=== PATIENT | female | born 1940 | race Caucasian/White ===

== ENCOUNTER 2021-06-18 09:48 | Inpatient (IN) | payer MEDICARE ==
[2021-06-18 10:10] LABS: ABG Oxygen Saturation 99.7 % (94-97); ABG PCO2 61 mmHg (35-45); ABG PH 7.55 (7.35-7.45); ABG PO2 106 mmHg (83-108); ABG TCO2 56 mmol/L (19-24); Allen Test Performed? Yes
[2021-06-18] MEDS ORDERED: NALOXONE 0.4 MG/ML 1 ML VIAL IV PRN (10:14)
[2021-06-18] MEDS ORDERED: MORPHINE SULFATE 2 MG/ML SYRINGE IV PRN (10:14)
[2021-06-18] MEDS ORDERED: IPRATROPIUM-ALBUTEROL 3 ML NEB INHALATION PRN (10:14)
[2021-06-18] MEDS ORDERED: ACETAMINOPHEN SUPPOSITORY 650 MG SUPP RECTAL PRN (10:14)
--- NOTE | 2021-06-18 10:22 | ED ---
General Adult HPI - General Chief complaint: Shortness of Breath Stated complaint: Intubation Time Seen by Provider: 06/18/21 09:49 Source: EMS, RN notes reviewed, old records reviewed Mode of arrival: EMS Limitations: altered mental status, physical limitation - History of Present Illness Initial comments: 81-year-old female who had presented to an outside emergency department with chief complaint of dyspnea, hypoxia. History of COPD. By review the medical record it does appear that this patient was trialed on supplemental oxygen, BiPAP and ultimately failed these measures and required mechanical ventilation. She had been transferred to this institution for pulmonology consult and ICU management. Review of Systems ROS Statement: Those systems with pertinent positive or pertinent negative responses have been documented in the HPI. ROS Other: All systems not noted in ROS Statement are negative. Past Medical History Past Medical History: COPD, Diabetes Mellitus, Hyperlipidemia, Hypertension, Sleep Apnea/CPAP/BIPAP, Thyroid Disorder General Exam General appearance: in no apparent distress, obtunded Head exam: Present: atraumatic, normocephalic Eye exam: Present: PERRL Neck exam: Present: normal inspection. Absent: tenderness, meningismus Respiratory exam: Present: wheezes, decreased breath sounds, other (Air entry bilaterally with mechanical ventilation.) Cardiovascular Exam: Present: regular rate, normal rhythm GI/Abdominal exam: Present: soft. Absent: distended, tenderness, guarding Extremities exam: Present: normal capillary refill, pedal edema Skin exam: Present: warm, dry, intact Course Vital Signs 06/18/21 09:55 Temperature 99.1 F Pulse Rate 62 Respiratory 16 Rate Blood Pressure 132/62 O2 Sat by Pulse 100 Oximetry Medical Decision Making - Medical Decision Making 81-year-old female who had been transferred with respiratory failure requiring mechanical ventilation which was indicated is secondary to COPD exacerbation with hypoxia. Workup had revealed a normal white blood cell count, hemoglobin of 11. She had normal kidney function at 1.1. Her d-dimer and troponin were negative. Covid testing was negative. Chest x-ray, and I'll repeat laboratory studies have been ordered. I did discuss case with Dr. Almanzar who will admit. Dr. Palmer will accept the patient to the ICU. Critical Care Time Critical Care Time: Yes Total Critical Care Time: 35 Disposition Clinical Impression: Acute exacerbation of chronic obstructive pulmonary disease, Dependent on ventilator Disposition: ADMITTED IP TO THIS HOSP Condition: Serious Is patient prescribed a controlled substance at d/c from ED?: No Referrals: Yanely Andrade PAC [Primary Care Provider] - 1-2 days Decision to Admit Reason: Admit from EC Decision Date: 06/18/21 Decision Time: 10:21
[2021-06-18 10:31] LABS: ABG HCO3 54 mmol/L (21-25)
--- NOTE | 2021-06-18 10:37 | XR ---
EXAMINATION TYPE: XR chest 1V portable DATE OF EXAM: 06/18/2021 COMPARISON: NONE HISTORY: 81 years Female. STUDY INDICATION GIVEN: vented . TECHNIQUE: AP chest radiograph IMPRESSION: Tip of endotracheal tube in the midthoracic trachea. Enteric tube courses into the stomach. Mild bilateral right greater than left patchy opacities may be on the basis of multifocal pneumonia. No pneumothorax or large effusion. Mild cardiomegaly. Generalized osteopenia noted.No acute osseous abnormality Radiopaque density seen over the upper abdomen to the left of the external to the patient.
[2021-06-18 10:43] LABS: Basophils % (A) 0 %; Eosinophils % (A) 0 %; HCT 33.6 % (34.0-46.0); HGB 10.3 gm/dL (11.4-16.0); Hypochromasia Slight; Lymphocytes # (A) 0.8 k/uL (1.0-4.8); Lymphocytes % (A) 8 %; MCH 30.8 pg (25.0-35.0); MCHC 30.7 g/dL (31.0-37.0); MCV 100.1 fL (80.0-100.0); Mean Platelet Volume 7.3; Monocytes # (A) 0.8 k/uL (0-1.0); Monocytes % (A) 8 %; Neutrophils # (A) 8.1 k/uL (1.3-7.7); Neutrophils % (A) 83 %; Platelet Count 227 k/uL (150-450); RBC 3.35 m/uL (3.80-5.40); RDW 13.8 % (11.5-15.5); WBC 9.8 k/uL (3.8-10.6)
[2021-06-18 10:56] LABS: Partial Thromboplastin Time 26.9 sec (22.0-30.0); Prothrombin Time 10.4 sec (9.0-12.0)
[2021-06-18 10:59] LABS: Albumin 2.9 g/dL (3.5-5.0); Calcium 7.8 mg/dL (8.4-10.2); Magnesium 1.9 mg/dL (1.6-2.3); Potassium 4.4 mmol/L (3.5-5.1); Total Bilirubin 0.3 mg/dL (0.2-1.3); Total Protein 5.6 g/dL (6.3-8.2)
[2021-06-18] MEDS: SODIUM CHLORIDE 0.9% 1,000 ML IV SCH ×2 (11:40→18:40)
[2021-06-18] MEDS: IPRATROPIUM-ALBUTEROL 3 ML NEB INHALATION SCH ×3 (11:46→20:43)
--- NOTE | 2021-06-18 14:59 | P.CNPUL ---
History of Present Illness Consult date: 06/18/21 Requesting physician: Vilma Cornejo Reason for consult: COPD, hypoxemia Chief complaint: Altered mental status History of present illness: This is an 81-year-old female with history of multiple medical problems including COPD, obstructive sleep apnea syndrome, supposed to be on CPAP, however the patient is not compliant with her CPAP. [place] [facility] [place], patient lives alone, and her family members from another town came to visit, she was found to be sleeping most of the time, unable to arouse most of the time. Patient was at times quite somnolent. EMS was called, and she was taken by EMS to a nearby ER emergency room, and the patient was found to have hypoxic and hypercapnic respiratory failure. Patient was intubated in the ER, and arrangements were made for the patient to be transferred to [facility] last night. She arrived this morning, and I was asked to see her on consultation because she is intubated and mechanically ventilated. Couldn't get much information from the patient or from the chart, but obviously the patient has clearly obesity/hypoventilation syndrome, possible COPD, and obstructive sleep apnea syndrome, and presented with hypoxic and hypercapnic respiratory failure. She is supposedly on oxygen at home prescribed to her by a director of career resources not seen by any pulmonary physician in the past. And according to the family she is not compliant with her CPAP. Presently the patient is intubated and mechanically ventilated, she is on assist control rate of 12, tidal volume 450, FiO2 down to 50% and PEEP of 5. Earlier ABG on different setting showed a pO2 of 106 pCO2 61 pH of 7.55, based on the gases, I believe the patient has chronic hypercapnia probably her baseline pCO2 is in the 70s. Hence her assist control rate was cut down from 18 down to 12, and a repeat ABG is pending. In the meantime the patient is on propofol at 40 mcg/kg/m, she is sedated, and on arousable. Review of Systems ROS unobtainable: due to endotracheal tube Past Medical History Past Medical History: COPD, Diabetes Mellitus, Hyperlipidemia, Hypertension, Sleep Apnea/CPAP/BIPAP, Thyroid Disorder History of Any Multi-Drug Resistant Organisms: None Reported Past Anesthesia/Blood Transfusion Reactions: No Reported Reaction Smoking Status: Former smoker Medications and Allergies Home Medications Medication Instructions Recorded Confirmed Type Furosemide [Lasix] 20 mg PO DAILY 06/18/21 06/18/21 History Levothyroxine Sodium [Synthroid] 150 mcg PO DAILY 06/18/21 06/18/21 History Potassium Chloride [Potassium 10 meq PO DAILY 06/18/21 06/18/21 History Chloride ER] Simvastatin [Zocor] 40 mg PO DAILY 06/18/21 06/18/21 History amLODIPine [Norvasc] 2.5 mg PO DAILY 06/18/21 06/18/21 History cloNIDine HCL [Catapres] 0.1 mg PO BID 06/18/21 06/18/21 History lisinopriL 40 mg PO DAILY 06/18/21 06/18/21 History Allergies Allergy/AdvReac Type Severity Reaction Status Date / Time No Known Allergies Allergy Unverified 06/18/21 10:51 Physical Exam Vitals: Vital Signs Temp Pulse Resp BP Pulse Ox 06/18/21 14:00 56 L 12 121/52 98 06/18/21 13:30 58 L 12 114/50 98 06/18/21 13:00 61 18 133/53 99 06/18/21 12:50 62 18 99 06/18/21 12:40 63 18 99 06/18/21 12:30 100 F H 61 18 130/71 100 06/18/21 12:15 17 06/18/21 11:57 63 06/18/21 11:50 64 06/18/21 11:40 18 111/58 99 06/18/21 11:30 63 18 138/60 100 06/18/21 11:20 64 18 138/60 100 06/18/21 11:10 83 17 132/71 99 06/18/21 11:05 100 F H 06/18/21 11:00 64 18 136/64 100 06/18/21 10:40 62 18 131/58 100 06/18/21 10:20 68 18 132/61 98 06/18/21 10:16 17 06/18/21 10:14 132/62 100 06/18/21 09:55 99.1 F 62 16 132/62 100 Intake and Output 06/17/21 06/18/21 06/18/21 22:59 06:59 14:59 Intake Total 333.684 Output Total 225 Balance 108.684 Intake: IV 130 Sodium Chloride 0.9% 1, 130 000 ml @ 130 mls/hr IV . Q7H42M [facility] Rx#:[id number] Intake, IV Titration 203.684 Amount Sodium Chloride 0.9% 1, 130 000 ml @ 130 mls/hr IV . Q7H42M [facility] Rx#:[id number] propofoL 1,000 mg In 73.684 Empty Bag 1 bag @ Titrate IV .Q0M [facility] Rx#: [id number] Output: Urine 225 Other: Voiding Method Indwelling Catheter Weight 109 kg ABP, PAP, CO, CI - Last 8 Hours Arterial Blood Pressure 131/43 Arterial Blood Pressure 152/51 General appearance: Revealed an 81-year-old female, obese, intubated and mechanically ventilated. Head exam: Atraumatic, normocephalic. Eye exam: PERRLA, EOMI, anicteric, no neck masses no JVD. Neck exam: Short obese neck, no neck masses no JVD no stridor. Moist mucous membranes. Respiratory exam: Symmetrical chest expansion diminished breath sound bilaterally no crackles or rhonchi or wheezes. Cardiovascular Exam: Normal S1 and S2, no S3 gallop. GI/Abdominal exam: Obese soft nontender no megaly no rebound no guarding. Extremities exam: No clubbing, trace of bipedal edema, no cyanosis. Skin exam: No rashes. Neurologic: Could not assess. Psychiatric: Could not assess Results - Laboratory Findings CBC and BMP: 06/18/21 10:31 06/18/21 10:31 ABG ABG pH 7.55 (7.35-7.45) H 06/18/21 10:07 ABG pCO2 61 mmHg (35-45) H 06/18/21 10:07 ABG pO2 106 mmHg (83-108) 06/18/21 10:07 ABG O2 Saturation 99.7 % (94-97) H 06/18/21 10:07 PT/INR, D-dimer PT 10.4 sec (9.0-12.0) 06/18/21 10:31 INR 1.0 (<1.2) 06/18/21 10:31 Abnormal lab findings: Abnormal Labs 06/18/21 06/18/21 06/18/21 10:07 10:31 10:31 RBC 3.35 L Hgb 10.3 L Hct 33.6 L MCV 100.1 H MCHC 30.7 L Neutrophils # 8.1 H Lymphocytes # 0.8 L ABG pH 7.55 H ABG pCO2 61 H ABG HCO3 54 H* ABG Total CO2 56 H ABG O2 Saturation 99.7 H Chloride 91 L Carbon Dioxide 42 H* BUN 19 H Glucose 113 H Plasma Lactic Acid Guido Calcium 7.8 L Total Protein 5.6 L Albumin 2.9 L 06/18/21 10:31 RBC Hgb Hct MCV MCHC Neutrophils # Lymphocytes # ABG pH ABG pCO2 ABG HCO3 ABG Total CO2 ABG O2 Saturation Chloride Carbon Dioxide BUN Glucose Plasma Lactic Acid Guido 2.2 H* Calcium Total Protein Albumin - Diagnostic Findings Chest x-ray: image reviewed (Adequate placement of the endotracheal tube a dequate placement of the orogastric tube minimal bilateral patchy opacities right greater than the left. Consistent with possible pneumonia) Assessment and Plan Assessment: Impression: Acute on chronic hypoxic and hypercapnic respiratory failure secondary to obesity/hypoventilation syndrome, obstructive sleep apnea syndrome, and suspect some component of COPD. Obstructive sleep apnea syndrome, noncompliant with CPAP. Chronic cor pulmonale and pulmonary hypertension secondary to above. Acute exacerbation of COPD is suspected. Bilateral pneumonia most likely aspiration in nature unless for otherwise. Type 2 diabetes. Dyslipidemia. Benign essential hypertension. History of hypothyroidism. Recommendation: Continue ventilatory support. Started nutritional support via orogastric tube. Hemodynamic support if needed. Antibiotics for presumptive aspiration pneumonia/Zosyn. GI and DVT prophylaxis. Bronchodilators for underlying COPD. Prognosis is definitely guarded. Discussed and reviewed with the family/daughter and son have status, and updated on her condition. Left radial arterial line was placed. Patient had a right femoral triple-lumen catheter placed by ER. Will keep in place for now. We'll continue to follow. Patient is critically ill. Time with Patient: Greater than 30
[2021-06-18] MEDS: PIPERACILLIN-TAZOBACTAM 3.375 GM in SODIUM CHLORIDE 0.9% 100 ML IVPB SCH ×2 (15:19→23:31)
[2021-06-18] MEDS: ENOXAPARIN 40 MG/0.4 ML SYRINGE SQ SCH (15:19)
[2021-06-18] MEDS ORDERED: methylPREDNISolone SOD SUCCI 125 MG/2 ML VIAL IV SCH (16:00)
[2021-06-18 16:12] LABS: ABG Base Excess 28.5 mmol/L; ABG Oxygen Saturation 99.6 % (94-97); ABG PCO2 63 mmHg (35-45); ABG PH 7.52 (7.35-7.45); ABG PO2 109 mmHg (83-108); ABG TCO2 53 mmol/L (19-24); Allen Test Performed? Yes
[2021-06-18 16:15] LABS: ABG HCO3 51 mmol/L (21-25)
[2021-06-18 17:24] LABS: Appearance,Urine Clear (Clear); Bilirubin,Urine Negative (Negative); Blood,Urine Negative (Negative); Color,Urine Yellow; Glucose,Urine (UA) Negative (Negative); Hyaline Casts,Urine 1 /lpf (0-2); Ketones,Urine Negative (Negative); Leukocyte Esterase,Urine Negative (Negative); Mucus,Urine Rare /hpf; Nitrite,Urine Negative (Negative); PH, Urine 8.5 (5.0-8.0); Protein,Urine 1+ (Negative); RBC,Urine 2 /hpf (0-5); Specific Gravity,Urine 1.018 (1.001-1.035); Urobilinogen,Urine <2.0 mg/dL (<2.0); WBC,Urine 1 /hpf (0-5)
[2021-06-18] MEDS ORDERED: INSULIN ASPART (NovoLOG) 100 UNIT/ML VIAL SQ SCH (17:30)
--- NOTE | 2021-06-18 17:44 | HP ---
HISTORY AND PHYSICAL CHIEF COMPLAINT: Shortness of breath. HISTORY OF PRESENT ILLNESS: This 81-year-old woman with a past medical history of COPD, diabetes mellitus, hyperlipidemia, hypertension, sleep apnea, being followed by Dr. Yanely Andrade in the outpatient setting, presented to [facility] with complaints of shortness of breath. Patient also had COPD, acute exacerbation. The patient was symptomatically with oxygen and BiPAP and ultimately the patient required mechanical ventilation. Patient was transferred for pulmonary consultation and ICU management. Currently the patient is unable to tolerate mechanically ventilated and sedated. Dr. Palmer is following the patient closely. Patient unable to give a coherent history at this time. The patient apparently had bilateral pneumonia, also. The admission lactic acid was 2.2, CO2 is 42. PAST MEDICAL HISTORY: History of COPD, history of diabetes mellitus, type 2, hypertension, hyperlipidemia, sleep apnea. HOME MEDICATIONS: Reviewed. They include clonidine, Norvasc, Zocor, Lasix, lisinopril, Synthroid. Doses are reviewed. ALLERGIES: NONE. FAMILY HISTORY: No history of heart disease or strokes in the family. SOCIAL HISTORY: History of smoking previously. REVIEW OF SYSTEMS: Review of systems could not be taken.. PHYSICAL EXAMINATION: Patient mechanically and sedated. Vents settings are noted. Pulse 55, blood pressure 138/57, respiration 20, temperature normal, pulse ox 98% on mechanical ventilation. HEENT: Conjunctivae normal. NECK: No jugular venous distention. CARDIOVASCULAR: S1, S2 muffled. RESPIRATION: Breath sounds diminished at the bases. A few scattered rhonchi. ABDOMEN: Soft, obese. LEGS: No edema. No swelling. NERVOUS SYSTEM: Diffusely weak. LABS: WBC 9.8, hemoglobin 10.3. Other labs are noted. Lactic acid is 2.2 and albumin is 2.9. ASSESSMENT: 1. Chronic obstructive pulmonary disease, acute exacerbation, with acute hypoxic hypercarbic respiratory failure, on mechanical ventilation. 2. Possible obesity hypoventilation syndrome. 3. Acute bilateral pneumonia with possible sepsis, present on admission, possibly Gram- negative. 4. History of chronic obstructive pulmonary disease. 5. Diabetes mellitus, type 2. 6. Hypertension. 7. Hyperlipidemia. 8. Sleep apnea. 9. History of hypothyroidism. 10.Remote history of nicotine dependence. 11.Obesity with body mass index of 36.5. 12.FULL CODE. 13.Anemia, macrocytic, possibly nutritional. 14.Acute respiratory alkalosis. 15.Elevated lactic acid possible secondary to sepsis. 16.Hypoalbuminemia with mild protein-calorie malnutrition. 17.FULL CODE. RECOMMENDATIONS AND DISCUSSION: In this 81-year-old woman who presented with multiple complex medical issues, we will monitor the patient closely, continue the current medications, continue with symptomatic treatment. Will initiate broad-spectrum IV antibiotics, steroids, bronchodilators and continue to monitor. Mechanical ventilation. Monitor blood sugars closely. DVT prophylaxis. Proton pump inhibitors. Will follow the patient closely. Home medications will also be continued. Prognosis guarded. MMODL / IJN: [id number] / MTDBarbie
[2021-06-18 17:59] LABS: Glucose,Whole Blood 119 mg/dL (75-99)
[2021-06-18] MEDS: methylPREDNISolone SOD SUCCI 125 MG/2 ML VIAL IV SCH ×2 (18:05→23:30)
[2021-06-18] MEDS: BUDESONIDE 1 MG/2 ML NEBU INHALATION SCH (20:43)
[2021-06-18] MEDS: FORMOTEROL FUMARATE 20 MCG/2 ML NEBU INHALATION SCH (20:43)
[2021-06-18] MEDS: cloNIDine HCL 0.1 MG TAB PO SCH (21:14)
[2021-06-18] MEDS: CHLORHEXIDINE GLUCONATE 15 ML CUP MUCOUS MEM SCH (21:14)
--- NOTE | 2021-06-18 21:54 | PCN ---
PROCEDURE NOTE OPERATIVE REPORT: Placement of a left radial arterial line. PREOPERATIVE DIAGNOSIS: Acute hypoxic and hypercapnic respiratory failure. POSTOPERATIVE DIAGNOSIS: Acute hypoxic and hypercapnic respiratory failure. ANESTHESIA: Used none deployed. PROCEDURE: The left wrist was splinted in a sterile fashion, the drapes were applied. The left radial artery was easily cannulated, and an Arrow catheter was inserted over the guidewire, the guidewire was removed. Good blood flow, good waveform noted. Line was secured using 3.0 silk sutures. No complications. MMODL / IJN: [id number] /
[2021-06-18 23:24] LABS: Glucose,Whole Blood 172 mg/dL (75-99)
[2021-06-18] MEDS: INSULIN ASPART (NovoLOG) 100 UNIT/ML VIAL SQ SCH (23:31)
[2021-06-19 04:21] LABS: Basophils % (A) 0 %; Eosinophils % (A) 0 %; HCT 32.9 % (34.0-46.0); HGB 10.5 gm/dL (11.4-16.0); Hypochromasia Slight; Lymphocytes # (A) 0.3 k/uL (1.0-4.8); Lymphocytes % (A) 3 %; MCH 31.4 pg (25.0-35.0); MCHC 31.8 g/dL (31.0-37.0); MCV 98.8 fL (80.0-100.0); Mean Platelet Volume 7.8; Monocytes # (A) 0.2 k/uL (0-1.0); Monocytes % (A) 2 %; Neutrophils # (A) 8.2 k/uL (1.3-7.7); Neutrophils % (A) 95 %; Platelet Count 220 k/uL (150-450); RBC 3.33 m/uL (3.80-5.40); RDW 13.9 % (11.5-15.5); WBC 8.7 k/uL (3.8-10.6)
[2021-06-19 04:36] LABS: Calcium 8.5 mg/dL (8.4-10.2); Potassium 4.1 mmol/L (3.5-5.1); Total Bilirubin 0.3 mg/dL (0.2-1.3); Total Protein 5.8 g/dL (6.3-8.2)
[2021-06-19 05:17] LABS: Glucose,Whole Blood 173 mg/dL (75-99)
[2021-06-19] MEDS: INSULIN ASPART (NovoLOG) 100 UNIT/ML VIAL SQ SCH ×4 (05:25→23:53)
[2021-06-19] MEDS: LEVOTHYROXINE 75 MCG TAB PO SCH (05:25)
[2021-06-19] MEDS: methylPREDNISolone SOD SUCCI 125 MG/2 ML VIAL IV SCH ×4 (05:26→23:51)
[2021-06-19 06:01] LABS: ABG Base Excess 21.3 mmol/L; ABG Oxygen Saturation 99.5 % (94-97); ABG PH 7.42 (7.35-7.45); ABG PO2 110 mmHg (83-108); ABG TCO2 48 mmol/L (19-24); Allen Test Performed? Yes
[2021-06-19 06:03] LABS: ABG HCO3 46 mmol/L (21-25); ABG PCO2 71 mmHg (35-45)
[2021-06-19] MEDS: SODIUM CHLORIDE 0.9% 1,000 ML IV SCH ×2 (06:47→21:11)
[2021-06-19] MEDS: PIPERACILLIN-TAZOBACTAM 3.375 GM in SODIUM CHLORIDE 0.9% 100 ML IVPB SCH ×3 (06:50→23:52)
[2021-06-19] MEDS: IPRATROPIUM-ALBUTEROL 3 ML NEB INHALATION SCH ×4 (07:41→20:35)
[2021-06-19] MEDS: BUDESONIDE 1 MG/2 ML NEBU INHALATION SCH ×2 (07:41→20:34)
[2021-06-19] MEDS: FORMOTEROL FUMARATE 20 MCG/2 ML NEBU INHALATION SCH ×2 (07:42→20:34)
[2021-06-19] MEDS: PANTOPRAZOLE 40 MG/10 ML VIAL IV SCH (08:52)
[2021-06-19] MEDS: ENOXAPARIN 40 MG/0.4 ML SYRINGE SQ SCH (08:52)
[2021-06-19] MEDS: CHLORHEXIDINE GLUCONATE 15 ML CUP MUCOUS MEM SCH (08:52)
[2021-06-19] MEDS: ATORVASTATIN 20 MG TAB PO SCH (08:53)
[2021-06-19] MEDS: FUROSEMIDE 20 MG TAB PO SCH (08:53)
[2021-06-19] MEDS: cloNIDine HCL 0.1 MG TAB PO SCH ×2 (09:00→20:51)
--- NOTE | 2021-06-19 09:05 | XR ---
EXAMINATION TYPE: XR chest 1V portable DATE OF EXAM: 06/19/2021 COMPARISON: Chest x-ray 06/18/2021 HISTORY: Tube placement, intubated TECHNIQUE: Single frontal view of the chest is obtained. FINDINGS: Endotracheal tube, NG tube are overlying appropriate positions. There are overlying artifa cts. There is no evident pneumothorax. Heart is enlarged. Aorta is dense. Interstitium is increased. Bibasilar density persists, the hemidiaphragms are obscured. IMPRESSION: Cardiomegaly, there may be basilar effusions, difficult to exclude pneumonia, pulmonary venous hypertension and interstitial edema
--- NOTE | 2021-06-19 09:37 | P.PN ---
Subjective Progress Note Date: 06/19/21 Principal diagnosis: Respiratory failure. This is an 81-year-old female with history of multiple medical problems including COPD, obstructive sleep apnea syndrome, supposed to be on CPAP, however the patient is not compliant with her CPAP. Patient lives up in the [facility] area, patient lives alone, and her family members from another town came to visit, she was found to be sleeping most of the time, unable to arouse most of the time. Patient was at times quite somnolent. EMS was called, and she was taken by EMS to a nearby ER emergency room, and the patient was found to have hypoxic and hypercapnic respiratory failure. Patient was intubated in the ER, and arrangements were made for the patient to be transferred to [facility] last night. She arrived this morning, and I was asked to see her on consultation because she is intubated and mechanically ventilated. Couldn't get much information from the patient or from the chart, but obviously the patie nt has clearly obesity/hypoventilation syndrome, possible COPD, and obstructive sleep apnea syndrome, and presented with hypoxic and hypercapnic respiratory failure. She is supposedly on oxygen at home prescribed to her by a paper processing machine helper not seen by any pulmonary physician in the past. And according to the family she is not compliant with her CPAP. Presently the patient is intubated and mechanically ventilated, she is on assist control rate of 12, tidal volume 450, FiO2 down to 50% and PEEP of 5. Earlier ABG on different setting showed a pO2 of 106 pCO2 61 pH of 7.55, based on the gases, I believe the patient has chronic hypercapnia probably her baseline pCO2 is in the 70s. Hence her assist control rate was cut down from 18 down to 12, and a repeat ABG is pending. In the meantime the patient is on propofol at 40 mcg/kg/m, she is sedated, and on arousable. Progress note dated 06/19/2021. 81-year-old female that we should down from an outside health the patient was intubated there for respiratory failure, and transferred here. She came in with COPD exacerbation. Currently, her peak airway pressure is 26 with a plateau pressure of 19. Her ventilator settings include the I'm assist control mode, rate of 10, tidal volume of 450, FiO2 40%, and PEEP of 5. Blood gases are very reasonable with a pO2 of 110, pCO2 of 70, pH 7.4. Those arterial blood gases were done on 50%. The patient's currently on saline at 75 mL an hour, and propofol at 45 mcg/kg/m. Tube feeds have not been started as yet. We will do a daily interruption of sedation, and a spontaneous breathing trial with pressure support of 5 and CPAP of 5. Hopefully, her weaning parameters will be excellent, and we will get her extubated. White count 8.7, hemoglobin 10.5, hematocrit 32.9, with a normal platelet count. Sodium 136, potassium 4.1, chlorides 90, CO2 42, anion gap 4, BUN 19, creatinine 0.91. Chest x-ray shows cardiomegaly, and some mild fluid overload. Objective - Vital Signs Vital signs: Vital Signs Temp 97.5 F L 06/19/21 08:00 Pulse 54 L 06/19/21 09:00 Resp 12 06/19/21 09:00 BP 126/58 06/19/21 09:00 Pulse Ox 95 06/19/21 09:00 Intake & Output 06/18/21 06/19/21 06/19/21 18:59 06:59 18:59 Intake Total 619.016 4959.400 250 Output Total 430 600 175 Balance 378.684 649.400 75 Weight 109 kg 107.3 kg Intake: IV 505 975 150 Sodium Chloride 0.9% 1, 505 975 150 000 ml @ 75 mls/hr IV . [id number] [facility] Rx#:[id number] Intake, IV Titration 303.684 274.400 100 Amount Sodium Chloride 0.9% 1, 130 000 ml @ 75 mls/hr IV . [id number] [facility] Rx#:[id number] propofoL 1,000 mg In 173.684 274.400 100 Empty Bag 1 bag @ Titrate IV .Q0M [facility] Rx#: [id number] Output: Urine 430 600 175 Other: Voiding Method Indwelling Catheter Indwelling Catheter Indwelling Catheter ABP, PAP, CO, CI - Last Documented Arterial Blood Pressure 139/55 - Exam No acute distress, currently intubated, and sedated with propofol, with an orally placed endotracheal tube and NG tube. HEENT examination is grossly unremarkable. Neck supple. Full range of motion. No adenopathy thyromegaly or neck vein distention. Cardiovascular examination reveals regular rhythm rate. S1-S2 normal. No S3 or S4. No discernible murmur noted. Heart sounds are distant. Heart rate 54 bpm. Lungs reveal coarse bilateral rhonchi. No wheezes or crackles. Breath sounds are equal bilaterally. Abdomen soft bowel sounds are heard. No masses or tenderness. Extremities are intact. No cyanosis clubbing or edema. Skin is without rash or lesion. Neurologic examination cannot be adequately assessed as the patient's currently sedated. - Labs CBC & Chem 7: 06/19/21 04:00 06/19/21 04:00 Labs: Abnormal Lab Results - Last 24 Hours (Table) 06/18/21 06/18/21 06/18/21 Range/Units 10:07 10:31 10:31 RBC 3.35 L (3.80-5.40) m/uL Hgb 10.3 L (11.4-16.0) gm/dL Hct 33.6 L (34.0-46.0) % MCV 100.1 H (80.0-100.0) fL MCHC 30.7 L (31.0-37.0) g/dL Neutrophils # 8.1 H (1.3-7.7) k/uL Lymphocytes # 0.8 L (1.0-4.8) k/uL ABG pH 7.55 H (7.35-7.45) ABG pCO2 61 H (35-45) mmHg ABG pO2 (83-108) mmHg ABG HCO3 54 H* (21-25) mmol/L ABG Total CO2 56 H (19-24) mmol/L ABG O2 Saturation 99.7 H (94-97) % Sodium (137-145) mmol/L Chloride 91 L (98-107) mmol/L Carbon Dioxide 42 H* (22-30) mmol/L BUN 19 H (7-17) mg/dL Glucose 113 H (74-99) mg/dL POC Glucose (mg/dL) (75-99) mg/dL Plasma Lactic Acid Guido (0.7-2.0) mmol/L Calcium 7.8 L (8.4-10.2) mg/dL Total Protein 5.6 L (6.3-8.2) g/dL Albumin 2.9 L (3.5-5.0) g/dL Urine pH (5.0-8.0) Urine Protein (Negative) Urine Mucus (None) /hpf 06/18/21 06/18/21 06/18/21 Range/Units 10:31 16:09 16:50 RBC (3.80-5.40) m/uL Hgb (11.4-16.0) gm/dL Hct (34.0-46.0) % MCV (80.0-100.0) fL MCHC (31.0-37.0) g/dL Neutrophils # (1.3-7.7) k/uL Lymphocytes # (1.0-4.8) k/uL ABG pH 7.52 H (7.35-7.45) ABG pCO2 63 H (35-45) mmHg ABG pO2 109 H (83-108) mmHg ABG HCO3 51 H* (21-25) mmol/L ABG Total CO2 53 H (19-24) mmol/L ABG O2 Saturation 99.6 H (94-97) % Sodium (137-145) mmol/L Chloride (98-107) mmol/L Carbon Dioxide (22-30) mmol/L BUN (7-17) mg/dL Glucose (74-99) mg/dL POC Glucose (mg/dL) (75-99) mg/dL Plasma Lactic Acid Guido 2.2 H* (0.7-2.0) mmol/L Calcium (8.4-10.2) mg/dL Total Protein (6.3-8.2) g/dL Albumin (3.5-5.0) g/dL Urine pH 8.5 H (5.0-8.0) Urine Protein 1+ H (Negative) Urine Mucus Rare H (None) /hpf 06/18/21 06/18/21 06/19/21 Range/Units 17:58 23:23 04:00 RBC 3.33 L (3.80-5.40) m/uL Hgb 10.5 L (11.4-16.0) gm/dL Hct 32.9 L (34.0-46.0) % MCV (80.0-100.0) fL MCHC (31.0-37.0) g/dL Neutrophils # 8.2 H (1.3-7.7) k/uL Lymphocytes # 0.3 L (1.0-4.8) k/uL ABG pH (7.35-7.45) ABG pCO2 (35-45) mmHg ABG pO2 (83-108) mmHg ABG HCO3 (21-25) mmol/L ABG Total CO2 (19-24) mmol/L ABG O2 Saturation (94-97) % Sodium (137-145) mmol/L Chloride (98-107) mmol/L Carbon Dioxide (22-30) mmol/L BUN (7-17) mg/dL Glucose (74-99) mg/dL POC Glucose (mg/dL) 119 H 172 H (75-99) mg/dL Plasma Lactic Acid Guido (0.7-2.0) mmol/L Calcium (8.4-10.2) mg/dL Total Protein (6.3-8.2) g/dL Albumin (3.5-5.0) g/dL Urine pH (5.0-8.0) Urine Protein (Negative) Urine Mucus (None) /hpf 06/19/21 06/19/21 06/19/21 Range/Units 04:00 05:16 05:58 RBC (3.80-5.40) m/uL Hgb (11.4-16.0) gm/dL Hct (34.0-46.0) % MCV (80.0-100.0) fL MCHC (31.0-37.0) g/dL Neutrophils # (1.3-7.7) k/uL Lymphocytes # (1.0-4.8) k/uL ABG pH (7.35-7.45) ABG pCO2 71 H* (35-45) mmHg ABG pO2 110 H (83-108) mmHg ABG HCO3 46 H* (21-25) mmol/L ABG Total CO2 48 H (19-24) mmol/L ABG O2 Saturation 99.5 H (94-97) % Sodium 136 L (137-145) mmol/L Chloride 90 L (98-107) mmol/L Carbon Dioxide 42 H* (22-30) mmol/L BUN 19 H (7-17) mg/dL Glucose 185 H (74-99) mg/dL POC Glucose (mg/dL) 173 H (75-99) mg/dL Plasma Lactic Acid Guido (0.7-2.0) mmol/L Calcium (8.4-10.2) mg/dL Total Protein 5.8 L (6.3-8.2) g/dL Albumin 3.0 L (3.5-5.0) g/dL Urine pH (5.0-8.0) Urine Protein (Negative) Urine Mucus (None) /hpf Microbiology - Last 24 Hours (Table) 06/18/21 20:30 Gram Stain - Preliminary Sputum Sputum Culture - Preliminary 06/18/21 16:50 Urine Culture - Preliminary Urine,Catheterized Assessment and Plan Assessment: Acute on chronic hypoxemic and hypercapnic respiratory failure, secondary to COPD, as well as possible pickwickian syndrome, and possibly aspiration pneumonia, status post intubation and mechanical ventilation on June 18. History of obstructive sleep apnea syndrome, noncompliant with CPAP. Chronic cor pulmonale and pulmonary hypertension. History of type 2 diabetes. Hyperlipidemia. Benign essential hypertension. History of hypothyroidism. Plan: Plan dated 06/19/2021. The patient will have a daily interruption of sedation, and a spontaneous breathing trial, with pressure support of 5 and CPAP of 5. Propofol be held. The patient is able to be extubated, we will do so. The patient fails her spontaneous breathing trial, we will start back on the ventilator, sedation, and tube feedings. Prognosis remains very guarded. We did order a chest x-ray, CBC, basic metabolic profile, and a blood gas for tomorrow, if the patient remains on the ventilator. We will continue to follow. Prognosis is guarded. Medications are reviewed. Time with Patient: Greater than 30
[2021-06-19 11:15] LABS: Glucose,Whole Blood 162 mg/dL (75-99)
[2021-06-19] MEDS: CLEVIDIPINE BUTYRATE 25 MG in EMPTY BAG 1 BAG IV SCH ×2 (11:20→15:27)
[2021-06-19] MEDS: DEXMEDETOMIDINE/0.9% NACL(PMX) 400 MCG in EMPTY BAG 1 BAG IV SCH (11:40)
[2021-06-19 13:11] LABS: ABG Base Excess 20.4 mmol/L; ABG Oxygen Saturation 95.4 % (94-97); ABG PCO2 63 mmHg (35-45); ABG PH 7.46 (7.35-7.45); ABG PO2 73 mmHg (83-108); ABG TCO2 46 mmol/L (19-24)
[2021-06-19 13:12] LABS: ABG HCO3 44 mmol/L (21-25)
--- NOTE | 2021-06-19 13:28 | P.PN ---
Subjective Progress Note Date: 06/19/21 This is an 81-year-old female who presented to the from [place] with shortness of breath and changes to mentation due to severe hypercapnic respiratory failure. She was intubated in the emergency room. 06/19/2021 Patient is evaluated in intensive care unit. She is being followed closely by intensive care/pulmonary services. Patient is still currently intubated. Labs today show white count of 8.7, hemoglobin 10.5, neutrophils 8.2. Sodium is 136, potassium 4.1, chloride 90, CO2 42, BUN 19, creatinine 0.91, blood sugars in the 170s, total protein 5.8 albumin 3. Pro-calcitonin level is 0.08. Liver enzymes are normal. Vitals show a heart rate of 82 sinus rhythm, blood pressure 126/62, she is afebrile, T-max the last 24 hours is 100, 94% oxygen saturation. Urine culture and sputum culture are negative, patient is on empiric antibiotic coverage with Zosyn, as well as IV solu-medrol and updrafts. Chest x-ray shows cardiomegaly, basilar effusions, difficult to exclude pneumonia, pulmonary venous hypertension and interstitial edema. Prognosis is guarded for this patient due to chronic respiratory status and noncompliance, hopefully she will be able to be extubated today. Unable to complete a full review of system as patient is intubated at the time of my assessment PHYSICAL EXAMINATION: GENERAL: Patient is intubated HEENT: Pupils are round and equally reacting to light. EOMI. No scleral icterus. No conjunctival pallor. Normocephalic, atraumatic. No pharyngeal erythema. No thyromegaly. CARDIOVASCULAR: S1 and S2 present. No murmurs, rubs, or gallops. PULMONARY: Coarse rhonchi, scattered, anterior lung ansari. ABDOMEN: Soft, nontender, nondistended, normoactive bowel sounds. No palpable organomegaly. MUSCULOSKELETAL: No joint swelling or deformity. EXTREMITIES: No cyanosis, clubbing, or pedal edema. NEUROLOGICAL: Unable to assess due to intubation SKIN: No rashes. Assessment and plan Assessment Chronic obstructive pulmonary disease, acute exacerbation with acute hypoxic hypercarbic respiratory failure on mechanical ventilation History of obstructive sleep apnea, noncompliant with CPAP Acute respiratory alkalosis Acute bilateral pneumonia with possible sepsis, present on admission, on IV antibiotics Diabetes mellitus type 2 with hyperglycemia Hypertension Hyponatremia, hypovolemic Anemia, macrocytic, requires further workup Hypothyroidism GI prophylaxis: IV Protonix DVT prophylaxis: Lovenox FULL CODE Plan Continue with weaning off ventilator per pulmonary services if able Tube feeding if patient is unable to be weaned Continue IV antibiotics, IV Solu-Medrol, updrafts Continue NovoLog sliding scale coverage Continue all other supportive care Repeat labs tomorrow AM Chest Xray Objective - Vital Signs Vital signs: Vital Signs Temp 97.5 F L 06/19/21 08:00 Pulse 82 06/19/21 11:51 Resp 24 06/19/21 11:51 BP 126/62 06/19/21 10:00 Pulse Ox 94 L 06/19/21 10:00 Intake & Output 06/18/21 06/19/21 06/19/21 18:59 06:59 18:59 Intake Total 659.790 7636.400 553.180 Output Total 430 600 900 Balance 378.684 649.400 -346.820 Weight 109 kg 107.3 kg Intake: IV 505 975 375 Sodium Chloride 0.9% 1, 505 975 375 000 ml @ 75 mls/hr IV . [id number] [facility] Rx#:[id number] Intake, IV Titration 303.684 274.400 178.180 Amount Clevidipine Butyrate 25 16.501 mg In Empty Bag 1 bag @ 1 MG/HR 2 mls/hr IV .Q24H [facility] Rx#:[id number] Dexmedetomidine/0.9% NaCl 8.941 (Pmx) 400 mcg In Empty Bag 1 bag @ 0.2 MCG/KG/HR 5.365 mls/hr IV .[id number] [facility] Rx#:[id number] Sodium Chloride 0.9% 1, 130 000 ml @ 75 mls/hr IV . [id number] [facility] Rx#:[id number] propofoL 1,000 mg In 173.684 274.400 152.738 Empty Bag 1 bag @ Titrate IV .Q0M [facility] Rx#: [id number] Output: Urine 430 600 900 Other: Voiding Method Indwelling Catheter Indwelling Catheter Indwelling Catheter ABP, PAP, CO, CI - Last Documented Arterial Blood Pressure 117/48 - Labs CBC & Chem 7: 06/19/21 04:00 06/19/21 04:00 Labs: Abnormal Lab Results - Last 24 Hours (Table) 06/18/21 06/18/21 06/18/21 Range/Units 16:09 16:50 17:58 RBC (3.80-5.40) m/uL Hgb (11.4-16.0) gm/dL Hct (34.0-46.0) % Neutrophils # (1.3-7.7) k/uL Lymphocytes # (1.0-4.8) k/uL ABG pH 7.52 H (7.35-7.45) ABG pCO2 63 H (35-45) mmHg ABG pO2 109 H (83-108) mmHg ABG HCO3 51 H* (21-25) mmol/L ABG Total CO2 53 H (19-24) mmol/L ABG O2 Saturation 99.6 H (94-97) % Sodium (137-145) mmol/L Chloride (98-107) mmol/L Carbon Dioxide (22-30) mmol/L BUN (7-17) mg/dL Glucose (74-99) mg/dL POC Glucose (mg/dL) 119 H (75-99) mg/dL Total Protein (6.3-8.2) g/dL Albumin (3.5-5.0) g/dL Urine pH 8.5 H (5.0-8.0) Urine Protein 1+ H (Negative) Urine Mucus Rare H (None) /hpf 06/18/21 06/19/21 06/19/21 Range/Units 23:23 04:00 04:00 RBC 3.33 L (3.80-5.40) m/uL Hgb 10.5 L (11.4-16.0) gm/dL Hct 32.9 L (34.0-46.0) % Neutrophils # 8.2 H (1.3-7.7) k/uL Lymphocytes # 0.3 L (1.0-4.8) k/uL ABG pH (7.35-7.45) ABG pCO2 (35-45) mmHg ABG pO2 (83-108) mmHg ABG HCO3 (21-25) mmol/L ABG Total CO2 (19-24) mmol/L ABG O2 Saturation (94-97) % Sodium 136 L (137-145) mmol/L Chloride 90 L (98-107) mmol/L Carbon Dioxide 42 H* (22-30) mmol/L BUN 19 H (7-17) mg/dL Glucose 185 H (74-99) mg/dL POC Glucose (mg/dL) 172 H (75-99) mg/dL Total Protein 5.8 L (6.3-8.2) g/dL Albumin 3.0 L (3.5-5.0) g/dL Urine pH (5.0-8.0) Urine Protein (Negative) Urine Mucus (None) /hpf 06/19/21 06/19/21 06/19/21 Range/Units 05:16 05:58 11:14 RBC (3.80-5.40) m/uL Hgb (11.4-16.0) gm/dL Hct (34.0-46.0) % Neutrophils # (1.3-7.7) k/uL Lymphocytes # (1.0-4.8) k/uL ABG pH (7.35-7.45) ABG pCO2 71 H* (35-45) mmHg ABG pO2 110 H (83-108) mmHg ABG HCO3 46 H* (21-25) mmol/L ABG Total CO2 48 H (19-24) mmol/L ABG O2 Saturation 99.5 H (94-97) % Sodium (137-145) mmol/L Chloride (98-107) mmol/L Carbon Dioxide (22-30) mmol/L BUN (7-17) mg/dL Glucose (74-99) mg/dL POC Glucose (mg/dL) 173 H 162 H (75-99) mg/dL Total Protein (6.3-8.2) g/dL Albumin (3.5-5.0) g/dL Urine pH (5.0-8.0) Urine Protein (Negative) Urine Mucus (None) /hpf Microbiology - Last 24 Hours (Table) 06/18/21 20:30 Gram Stain - Preliminary Sputum Sputum Culture - Preliminary 06/18/21 16:50 Urine Culture - Preliminary Urine,Catheterized Assessment and Plan Time with Patient: Greater than 30
[2021-06-19 17:17] LABS: Glucose,Whole Blood 201 mg/dL (75-99)
[2021-06-19] MEDS ORDERED: VANCOMYCIN IV PER PHARMACY 1 EACH MISC MISCELLANE PRN (17:38)
[2021-06-19] MEDS ORDERED: VANCOMYCIN 1,750 MG in SODIUM CHLORIDE 0.9% 500 ML 500 ML IVPB ONE (18:00)
[2021-06-19 21:12] LABS: Glucose,Whole Blood 153 mg/dL (75-99)
[2021-06-20] MEDS ORDERED: ATROPINE SULFATE 0.1 MG/ML 10ML SYRINGE ONE (01:53)
[2021-06-20 04:14] LABS: Basophils % (A) 0 %; Eosinophils % (A) 0 %; HCT 36.1 % (34.0-46.0); HGB 11.2 gm/dL (11.4-16.0); Lymphocytes # (A) 0.3 k/uL (1.0-4.8); Lymphocytes % (A) 2 %; MCH 30.3 pg (25.0-35.0); MCHC 31.1 g/dL (31.0-37.0); MCV 97.7 fL (80.0-100.0); Mean Platelet Volume 7.5; Monocytes # (A) 0.5 k/uL (0-1.0); Monocytes % (A) 4 %; Neutrophils # (A) 11.3 k/uL (1.3-7.7); Neutrophils % (A) 93 %; Platelet Count 256 k/uL (150-450); RDW 14.1 % (11.5-15.5); WBC 12.1 k/uL (3.8-10.6)
[2021-06-20 04:32] LABS: Calcium 8.4 mg/dL (8.4-10.2); Potassium 3.8 mmol/L (3.5-5.1)
[2021-06-20] MEDS: DEXMEDETOMIDINE/0.9% NACL(PMX) 400 MCG in EMPTY BAG 1 BAG IV SCH (06:06)
[2021-06-20] MEDS: LEVOTHYROXINE 75 MCG TAB PO SCH (06:11)
[2021-06-20] MEDS: methylPREDNISolone SOD SUCCI 125 MG/2 ML VIAL IV SCH ×3 (06:12→18:27)
[2021-06-20] MEDS: INSULIN ASPART (NovoLOG) 100 UNIT/ML VIAL SQ SCH ×5 (06:12→20:18)
[2021-06-20] MEDS ORDERED: POTASSIUM CHLORIDE 20 MEQ in WATER FOR INJECTION 1 100ML.BAG IVPB ONE (06:14)
--- NOTE | 2021-06-20 08:25 | XR ---
EXAMINATION TYPE: XR chest 1V portable DATE OF EXAM: 06/20/2021 COMPARISON: Chest x-ray 06/19/2021 HISTORY: Extubated, abnormal chest x-ray TECHNIQUE: Single frontal view of the chest is obtained. FINDINGS: There is been interval removal of the endotracheal tube, NG tube. No evident pneumothorax. Interval improved visualization of the right hemidiaphragm, there is retrocardiac density with obscu red left hemidiaphragm. The heart remains enlarged. Aorta is dense. IMPRESSION: There is some improvement in aeration, there may be lower lobe atelectasis versus pneumo meagan or edema
[2021-06-20] MEDS: IPRATROPIUM-ALBUTEROL 3 ML NEB INHALATION SCH ×4 (09:38→21:44)
[2021-06-20] MEDS: FORMOTEROL FUMARATE 20 MCG/2 ML NEBU INHALATION SCH ×2 (09:38→21:44)
[2021-06-20] MEDS: BUDESONIDE 1 MG/2 ML NEBU INHALATION SCH ×2 (09:38→21:44)
--- NOTE | 2021-06-20 11:09 | P.PN ---
Subjective Progress Note Date: 06/20/21 Principal diagnosis: Respiratory failure. This is an 81-year-old female with history of multiple medical problems including COPD, obstructive sleep apnea syndrome, supposed to be on CPAP, however the patient is not compliant with her CPAP. Patient lives [place] in the [facility] area, patient lives alone, and her family members from another town came to visit, she was found to be sleeping most of the time, unable to arouse most of the time. Patient was at times quite somnolent. EMS was called, and she was taken by EMS to a nearby ER emergency room, and the patient was found to have hypoxic and hypercapnic respiratory failure. Patient was intubated in the ER, and arrangements were made for the patient to be transferred to [facility] last night. She arrived this morning, and I was asked to see her on consultation because she is intubated and mechanically ventilated. Couldn't get much information from the patient or from the chart, but obviously the patie nt has clearly obesity/hypoventilation syndrome, possible COPD, and obstructive sleep apnea syndrome, and presented with hypoxic and hypercapnic respiratory failure. She is supposedly on oxygen at home prescribed to her by a adjuster piano action not seen by any pulmonary physician in the past. And according to the family she is not compliant with her CPAP. Presently the patient is intubated and mechanically ventilated, she is on assist control rate of 12, tidal volume 450, FiO2 down to 50% and PEEP of 5. Earlier ABG on different setting showed a pO2 of 106 pCO2 61 pH of 7.55, based on the gases, I believe the patient has chronic hypercapnia probably her baseline pCO2 is in the 70s. Hence her assist control rate was cut down from 18 down to 12, and a repeat ABG is pending. In the meantime the patient is on propofol at 40 mcg/kg/m, she is sedated, and on arousable. Progress note dated 06/19/2021. 81-year-old female that we should down from an outside health the patient was intubated there for respiratory failure, and transferred here. She came in with COPD exacerbation. Currently, her peak airway pressure is 26 with a plateau pressure of 19. Her ventilator settings include the I'm assist control mode, rate of 10, tidal volume of 450, FiO2 40%, and PEEP of 5. Blood gases are very reasonable with a pO2 of 110, pCO2 of 70, pH 7.4. Those arterial blood gases were done on 50%. The patient's currently on saline at 75 mL an hour, and propofol at 45 mcg/kg/m. Tube feeds have not been started as yet. We will do a daily interruption of sedation, and a spontaneous breathing trial with pressure support of 5 and CPAP of 5. Hopefully, her weaning parameters will be excellent, and we will get her extubated. White count 8.7, hemoglobin 10.5, hematocrit 32.9, with a normal platelet count. Sodium 136, potassium 4.1, chlorides 90, CO2 42, anion gap 4, BUN 19, creatinine 0.91. Chest x-ray shows cardiomegaly, and some mild fluid overload. Progress note dated 06/20/2021. 81-year-old female transferred from an outside hospital. The patient was sent down with a episode of acute hypoxemic respiratory failure secondary to COPD exacerbation. She was a heavy smoker in the past. Yesterday, we saw her, she was on the mechanical ventilator. We did do a daily interruption of sedation, and a spontaneous breathing trial. She tolerated it well, and we were able to extubate her to BiPAP. Currently, she is on metformin half liters nasal cannula, which is her home dose. In addition, she getting saline at 75 mL an hour. She is feeling much better. She didn't passed her swallow evaluation, and her diet can be advanced. White count 12.1, hemoglobin 11.2, hematocrit 36. 1, platelet count 256,000. Sodium 137, potassium 3.8, chlorides 93, CO2 38, anion gap 6, BUN and creatinine were 23 and 1.08. Microbiology showing Susanne albicans in the sputum, and one of the blood cultures are showing gram-positive cocci in clusters. It is not yet been identified. It may belt turner to be a contaminant such as staph epidermidis. Chest x-ray compared to yesterday's x- ray is improved, although, there is some edema and/or pneumonia present. Objective - Vital Signs Vital signs: Vital Signs Temp 98.9 F 06/20/21 04:00 Pulse 93 06/20/21 09:56 Resp 22 06/20/21 09:56 BP 162/70 06/20/21 07:00 Pulse Ox 89 L 06/20/21 08:00 Intake & Output 06/19/21 06/20/21 06/20/21 18:59 06:59 18:59 Intake Total 6001.830 2403.2 75 Output Total 2100 735 35 Balance -3788.842 0835.2 40 Weight 110 kg Intake: IV 825 900 75 Sodium Chloride 0.9% 1, 825 900 75 000 ml @ 75 mls/hr IV . [id number] [facility] Rx#:[id number] Intake, IV Titration 243.500 628.2 Amount Clevidipine Butyrate 25 39.168 28.2 mg In Empty Bag 1 bag @ 1 MG/HR 2 mls/hr IV .Q24H [facility] Rx#:[id number] Dexmedetomidine/0.9% NaCl 51.594 (Pmx) 400 mcg In Empty Bag 1 bag @ 0.2 MCG/KG/HR 5.365 mls/hr IV .[id number] [facility] Rx#:[id number] Piperacillin-Tazobactam 3 100 .375 gm In Sodium Chloride 0.9% 100 ml @ 25 mls/hr IVPB Q8HR [facility] Rx# :[id number] Vancomycin 1,750 mg In 500 Sodium Chloride 0.9% 500 ml 500 ml @ 167 mls/hr IVPB ONCE ONE Rx#: [id number] propofoL 1,000 mg In 152.738 Empty Bag 1 bag @ Titrate IV .Q0M [facility] Rx#: [id number] Oral 240 Output: Urine 2100 735 35 Other: Voiding Method Indwelling Catheter Indwelling Catheter ABP, PAP, CO, CI - Last Documented Arterial Blood Pressure 149/59 - Exam No acute distress, currently on 4. 5 L nasal cannula. Awake and alert. HEENT examination is grossly unremarkable. Neck supple. Full range of motion. No adenopathy thyromegaly or neck vein distention. Cardiovascular examination reveals regular rhythm rate. S1-S2 normal. No S3 or S4. No discernible murmur noted. Heart sounds are distant. Heart rate 93 bpm. Lungs reveal coarse bilateral rhonchi. Bilateral expiratory wheezes are noted. Breath sounds are equal bilaterally. There are no crackles. Abdomen soft bowel sounds are heard. No masses or tenderness. Extremities are intact. No cyanosis clubbing or edema. Skin is without rash or lesion. Neurologic examination is brief but nonfocal. - Labs CBC & Chem 7: 06/20/21 03:50 06/20/21 03:50 Labs: Abnormal Lab Results - Last 24 Hours (Table) 06/19/21 06/19/21 06/19/21 Range/Units 11:14 13:08 17:16 WBC (3.8-10.6) k/uL RBC (3.80-5.40) m/uL Hgb (11.4-16.0) gm/dL Neutrophils # (1.3-7.7) k/uL Lymphocytes # (1.0-4.8) k/uL ABG pH 7.46 H (7.35-7.45) ABG pCO2 63 H (35-45) mmHg ABG pO2 73 L (83-108) mmHg ABG HCO3 44 H* (21-25) mmol/L ABG Total CO2 46 H (19-24) mmol/L Chloride (98-107) mmol/L Carbon Dioxide (22-30) mmol/L BUN (7-17) mg/dL Creatinine (0.52-1.04) mg/dL Glucose (74-99) mg/dL POC Glucose (mg/dL) 162 H 201 H (75-99) mg/dL 06/19/21 06/20/21 06/20/21 Range/Units 21:11 03:50 03:50 WBC 12.1 H (3.8-10.6) k/uL RBC 3.70 L (3.80-5.40) m/uL Hgb 11.2 L (11.4-16.0) gm/dL Neutrophils # 11.3 H (1.3-7.7) k/uL Lymphocytes # 0.3 L (1.0-4.8) k/uL ABG pH (7.35-7.45) ABG pCO2 (35-45) mmHg ABG pO2 (83-108) mmHg ABG HCO3 (21-25) mmol/L ABG Total CO2 (19-24) mmol/L Chloride 93 L (98-107) mmol/L Carbon Dioxide 38 H (22-30) mmol/L BUN 23 H (7-17) mg/dL Creatinine 1.08 H (0.52-1.04) mg/dL Glucose 175 H (74-99) mg/dL POC Glucose (mg/dL) 153 H (75-99) mg/dL Microbiology - Last 24 Hours (Table) 06/18/21 20:30 Gram Stain - Final Sputum Sputum Culture - Final Susanne albicans 06/18/21 15:44 Blood Culture Gram Stain - Preliminary Blood 06/18/21 15:44 Blood Culture - Final Blood 06/18/21 16:50 Urine Culture - Final Urine,Catheterized Assessment and Plan Assessment: Acute on chronic hypoxemic and hypercapnic respiratory failure, secondary to COPD, as well as possible pickwickian syndrome, and possibly aspiration pneumonia, status post intubation and mechanical ventilation on June 18, and successful extubation on 06/19/2021. History of obstructive sleep apnea syndrome, noncompliant with CPAP. Chronic cor pulmonale and pulmonary hypertension. Previous history of heavy tobacco use. History of type 2 diabetes. Hyperlipidemia. Benign essential hypertension. History of hypothyroidism. Plan: Plan dated 06/19/2021. The patient will have a daily interruption of sedation, and a spontaneous breathing trial, with pressure support of 5 and CPAP of 5. Propofol be held. The patient is able to be extubated, we will do so. The patient fails her spontaneous breathing trial, we will start back on the ventilator, sedation, and tube feedings. Prognosis remains very guarded. We did order a chest x-ray, CBC, basic metabolic profile, and a blood gas for tomorrow, if the patient remains on the ventilator. We will continue to follow. Prognosis is guarded. Medications are reviewed. Plan dated 06/20/2021. For the time being, the patient will continue on vancomycin. Zosyn was discontinued. She didn't passed her swallow evaluation, so her diet will be advanced. X-rays, medications, labs are all reviewed. We'll keep her on the vancomycin until the blood cultures have been fully evaluated. We will continue to follow make recommendations where appropriate. Prognosis is guarded. Cleveprex is discontinued. The patient remains on albuterol sulfate, ipratropium bromide, Solu-Medrol, formoterol, and budesonide. Time with Patient: Greater than 30
[2021-06-20] MEDS: PANTOPRAZOLE 40 MG/10 ML VIAL IV SCH (11:14)
[2021-06-20] MEDS: FUROSEMIDE 20 MG TAB PO SCH (11:14)
[2021-06-20] MEDS: ATORVASTATIN 20 MG TAB PO SCH (11:14)
[2021-06-20] MEDS: ENOXAPARIN 40 MG/0.4 ML SYRINGE SQ SCH (11:14)
[2021-06-20] MEDS: cloNIDine HCL 0.1 MG TAB PO SCH ×2 (11:14→20:18)
[2021-06-20] MEDS: SODIUM CHLORIDE 0.9% 1,000 ML IV SCH (11:15)
[2021-06-20 11:25] LABS: Glucose,Whole Blood 140 mg/dL (75-99)
[2021-06-20] MEDS ORDERED: VANCOMYCIN 1,750 MG in SODIUM CHLORIDE 0.9% 500 ML 500 ML IVPB SCH (12:00)
--- NOTE | 2021-06-20 14:22 | P.PN ---
Subjective Progress Note Date: 06/20/21 This is an 81-year-old female who presented to the from [place] with shortness of breath and changes to mentation due to severe hypercapnic respiratory failure. She was intubated in the emergency room. 06/19/2021 Patient is evaluated in intensive care unit. She is being followed closely by intensive care/pulmonary services. Patient is still currently intubated. Labs today show white count of 8.7, hemoglobin 10.5, neutrophils 8.2. Sodium is 136, potassium 4.1, chloride 90, CO2 42, BUN 19, creatinine 0.91, blood sugars in the 170s, total protein 5.8 albumin 3. Pro-calcitonin level is 0.08. Liver enzymes are normal. Vitals show a heart rate of 82 sinus rhythm, blood pressure 126/62, she is afebrile, T-max the last 24 hours is 100, 94% oxygen saturation. Urine culture and sputum culture are negative, patient is on empiric antibiotic coverage with Zosyn, as well as IV solu-medrol and updrafts. Chest x-ray shows cardiomegaly, basilar effusions, difficult to exclude pneumonia, pulmonary venous hypertension and interstitial edema. Prognosis is guarded for this patient due to chronic respiratory status and noncompliance, hopefully she will be able to be extubated today. 06/20/2021 Patient was extubated about 24 hours ago, and is currently on a 5 L nasal cannula. She uses 4.5 L of oxygen via nasal cannula at home. She is an ex- smoker, states that she quit in her early 50s she started smoking at the age of 25. She does live by herself but has family that checks on her. She was recently in the hospital and discharged and sent to rehab however she checked herself out because she felt like she was too independent for rehab. Patient does have a history of sleep apnea, she reports that she has an old CPAP machine however when she went within the last year for a reevaluation she never fell asleep during her sleep study they would not give her a new CPAP. She worked with PT today was able to sit on the edge of the bed. She is tolerating a diet today. She denies any shortness of breath or cough, denies any chest pain, chest pressure or palpitations. She denies any nausea vomiting or diarrhea. Chest x-ray today shows improvement in aeration, but may be lower lobe atelectasis verse pneumonia or edema. Labs today show white count 0.1, hemoglobin 11.2, sodium 137, potassium 3.8, chloride 93, CO2 38, BUN 23, creatinine 1.08. Sugars in the 140s. Blood pressure 160/70, afebrile, heart rate 88. ROS Constitutional: Denied any fatigue denied any fever. Cardio vascular: denied any chest pain, palpitations Gastrointestinal: denied any nausea vomiting Pulmonary: Denied any shortness of breath cough Neurologic denied any new focal deficits All inpatient medications were reviewed and appropriate changes in these medications as dictated in the interval history and assessment and plan. PHYSICAL EXAMINATION: GENERAL: The patient is alert and oriented x3, not in any acute distress. Well developed, well nourished. Obese. HEENT: Pupils are round and equally reacting to light. EOMI. No scleral icterus. No conjunctival pallor. Normocephalic, atraumatic. No pharyngeal erythema. No thyromegaly. CARDIOVASCULAR: S1 and S2 present. No murmurs, rubs, or gallops. PULMONARY: Chest is clear to auscultation, no wheezing or crackles. ABDOMEN: Soft, nontender, nondistended, normoactive bowel sounds. No palpable organomegaly. MUSCULOSKELETAL: No joint swelling or deformity. EXTREMITIES: No cyanosis, clubbing, nonpitting pedal edema NEUROLOGICAL: Gross neurological examination did not reveal any focal deficits. SKIN: No rashes. Assessment and plan Assessment Chronic obstructive pulmonary disease, acute exacerbation with acute hypoxic hypercarbic respiratory failure, extubated on 06/19 - currently on 4L [place] History of obstructive sleep apnea, noncompliant with CPAP Pulmonary hypertension, chronic Acute respiratory alkalosis Acute bilateral pneumonia with possible sepsis, present on admission, on IV antibiotics Diabetes mellitus type 2 with hyperglycemia Hypertension Hyponatremia, hypovolemic Anemia, macrocytic, requires further workup Hypothyroidism GI prophylaxis: IV Protonix DVT prophylaxis: Lovenox FULL CODE Plan Continue IV antibiotics, IV Solu-Medrol, updrafts Pending finalized blood cultures Continue NovoLog sliding scale coverage Continue all other supportive care PT/OT Repeat labs tomorrow Objective - Vital Signs Vital signs: Vital Signs Temp 98.9 F 06/20/21 04:00 Pulse 81 06/20/21 07:00 Resp 27 H 06/20/21 07:00 BP 162/70 06/20/21 07:00 Pulse Ox 91 L 06/20/21 07:00 Intake & Output 06/19/21 06/20/21 06/20/21 18:59 06:59 18:59 Intake Total 7513.437 4905.2 75 Output Total 2100 735 35 Balance -4534.963 9241.2 40 Weight 110 kg Intake: IV 825 900 75 Sodium Chloride 0.9% 1, 825 900 75 000 ml @ 75 mls/hr IV . [id number] [facility] Rx#:[id number] Intake, IV Titration 243.500 628.2 Amount Clevidipine Butyrate 25 39.168 28.2 mg In Empty Bag 1 bag @ 1 MG/HR 2 mls/hr IV .Q24H [facility] Rx#:[id number] Dexmedetomidine/0.9% NaCl 51.594 (Pmx) 400 mcg In Empty Bag 1 bag @ 0.2 MCG/KG/HR 5.365 mls/hr IV .[id number] [facility] Rx#:[id number] Piperacillin-Tazobactam 3 100 .375 gm In Sodium Chloride 0.9% 100 ml @ 25 mls/hr IVPB Q8HR [facility] Rx# :[id number] Vancomycin 1,750 mg In 500 Sodium Chloride 0.9% 500 ml 500 ml @ 167 mls/hr IVPB ONCE ONE Rx#: [id number] propofoL 1,000 mg In 152.738 Empty Bag 1 bag @ Titrate IV .Q0M [facility] Rx#: [id number] Oral 240 Output: Urine 2100 735 35 Other: Voiding Method Indwelling Catheter Indwelling Catheter ABP, PAP, CO, CI - Last Documented Arterial Blood Pressure 168/69 - Labs CBC & Chem 7: 06/20/21 03:50 06/20/21 03:50 Labs: Abnormal Lab Results - Last 24 Hours (Table) 06/19/21 06/19/21 06/19/21 Range/Units 11:14 13:08 17:16 WBC (3.8-10.6) k/uL RBC (3.80-5.40) m/uL Hgb (11.4-16.0) gm/dL Neutrophils # (1.3-7.7) k/uL Lymphocytes # (1.0-4.8) k/uL ABG pH 7.46 H (7.35-7.45) ABG pCO2 63 H (35-45) mmHg ABG pO2 73 L (83-108) mmHg ABG HCO3 44 H* (21-25) mmol/L ABG Total CO2 46 H (19-24) mmol/L Chloride (98-107) mmol/L Carbon Dioxide (22-30) mmol/L BUN (7-17) mg/dL Creatinine (0.52-1.04) mg/dL Glucose (74-99) mg/dL POC Glucose (mg/dL) 162 H 201 H (75-99) mg/dL 06/19/21 06/20/21 06/20/21 Range/Units 21:11 03:50 03:50 WBC 12.1 H (3.8-10.6) k/uL RBC 3.70 L (3.80-5.40) m/uL Hgb 11.2 L (11.4-16.0) gm/dL Neutrophils # 11.3 H (1.3-7.7) k/uL Lymphocytes # 0.3 L (1.0-4.8) k/uL ABG pH (7.35-7.45) ABG pCO2 (35-45) mmHg ABG pO2 (83-108) mmHg ABG HCO3 (21-25) mmol/L ABG Total CO2 (19-24) mmol/L Chloride 93 L (98-107) mmol/L Carbon Dioxide 38 H (22-30) mmol/L BUN 23 H (7-17) mg/dL Creatinine 1.08 H (0.52-1.04) mg/dL Glucose 175 H (74-99) mg/dL POC Glucose (mg/dL) 153 H (75-99) mg/dL Microbiology - Last 24 Hours (Table) 06/18/21 15:44 Blood Culture Gram Stain - Preliminary Blood 06/18/21 15:44 Blood Culture - Final Blood 06/18/21 16:50 Urine Culture - Final Urine,Catheterized 06/18/21 20:30 Gram Stain - Preliminary Sputum Sputum Culture - Preliminary Assessment and Plan Time with Patient: Greater than 30
[2021-06-20 20:17] LABS: Glucose,Whole Blood 152 mg/dL (75-99)
[2021-06-21] MEDS: methylPREDNISolone SOD SUCCI 125 MG/2 ML VIAL IV SCH ×5 (00:27→23:37)
[2021-06-21] MEDS: SODIUM CHLORIDE 0.9% 1,000 ML IV SCH ×2 (00:27→12:28)
[2021-06-21 03:32] LABS: Basophils % (A) 0 %; Eosinophils % (A) 0 %; HCT 35.1 % (34.0-46.0); HGB 10.9 gm/dL (11.4-16.0); Hypochromasia Slight; Lymphocytes # (A) 0.5 k/uL (1.0-4.8); Lymphocytes % (A) 4 %; MCH 30.7 pg (25.0-35.0); MCHC 31.1 g/dL (31.0-37.0); MCV 98.9 fL (80.0-100.0); Mean Platelet Volume 7.7; Monocytes # (A) 0.6 k/uL (0-1.0); Monocytes % (A) 5 %; Neutrophils # (A) 9.7 k/uL (1.3-7.7); Neutrophils % (A) 89 %; Platelet Count 212 k/uL (150-450); RBC 3.55 m/uL (3.80-5.40); RDW 14.1 % (11.5-15.5); WBC 10.8 k/uL (3.8-10.6)
[2021-06-21 03:43] LABS: Calcium 8.1 mg/dL (8.4-10.2); Potassium 3.9 mmol/L (3.5-5.1)
[2021-06-21] MEDS ORDERED: Potassium Replacement Protocol 1 EACH MISC MISCELLANE PRN (04:02)
[2021-06-21] MEDS ORDERED: POTASSIUM CHLORIDE ER 20 MEQ TAB.ER PO SCH (05:00)
[2021-06-21 07:26] LABS: Glucose,Whole Blood 177 mg/dL (75-99)
[2021-06-21] MEDS: IPRATROPIUM-ALBUTEROL 3 ML NEB INHALATION SCH ×4 (08:47→20:21)
[2021-06-21] MEDS: BUDESONIDE 1 MG/2 ML NEBU INHALATION SCH ×2 (08:47→20:21)
[2021-06-21] MEDS: FORMOTEROL FUMARATE 20 MCG/2 ML NEBU INHALATION SCH ×2 (08:47→20:21)
[2021-06-21] MEDS: PANTOPRAZOLE 40 MG/10 ML VIAL IV SCH (09:42)
[2021-06-21] MEDS: cloNIDine HCL 0.1 MG TAB PO SCH ×2 (09:43→20:22)
[2021-06-21] MEDS: ATORVASTATIN 20 MG TAB PO SCH (09:43)
[2021-06-21] MEDS: LEVOTHYROXINE 75 MCG TAB PO SCH (09:43)
[2021-06-21] MEDS: FUROSEMIDE 20 MG TAB PO SCH (09:43)
[2021-06-21] MEDS: INSULIN ASPART (NovoLOG) 100 UNIT/ML VIAL SQ SCH ×4 (09:43→20:22)
[2021-06-21] MEDS: ENOXAPARIN 40 MG/0.4 ML SYRINGE SQ SCH (09:43)
--- NOTE | 2021-06-21 11:41 | P.PN ---
Subjective Progress Note Date: 06/21/21 Principal diagnosis: Respiratory failure. This is an 81-year-old female with history of multiple medical problems including COPD, obstructive sleep apnea syndrome, supposed to be on CPAP, however the patient is not compliant with her CPAP. Patient lives up in the [facility] area, patient lives alone, and her family members from another town came to visit, she was found to be sleeping most of the time, unable to arouse most of the time. Patient was at times quite somnolent. EMS was called, and she was taken by EMS to a nearby ER emergency room, and the patient was found to have hypoxic and hypercapnic respiratory failure. Patient was intubated in the ER, and arrangements were made for the patient to be transferred to [facility] last night. She arrived this morning, and I was asked to see her on consultation because she is intubated and mechanically ventilated. Couldn't get much information from the patient or from the chart, but obviously the patie nt has clearly obesity/hypoventilation syndrome, possible COPD, and obstructive sleep apnea syndrome, and presented with hypoxic and hypercapnic respiratory failure. She is supposedly on oxygen at home prescribed to her by a tile conduit layer not seen by any pulmonary physician in the past. And according to the family she is not compliant with her CPAP. Presently the patient is intubated and mechanically ventilated, she is on assist control rate of 12, tidal volume 450, FiO2 down to 50% and PEEP of 5. Earlier ABG on different setting showed a pO2 of 106 pCO2 61 pH of 7.55, based on the gases, I believe the patient has chronic hypercapnia probably her baseline pCO2 is in the 70s. Hence her assist control rate was cut down from 18 down to 12, and a repeat ABG is pending. In the meantime the patient is on propofol at 40 mcg/kg/m, she is sedated, and on arousable. Progress note dated 06/19/2021. 81-year-old female that we should down from an outside health the patient was intubated there for respiratory failure, and transferred here. She came in with COPD exacerbation. Currently, her peak airway pressure is 26 with a plateau pressure of 19. Her ventilator settings include the I'm assist control mode, rate of 10, tidal volume of 450, FiO2 40%, and PEEP of 5. Blood gases are very reasonable with a pO2 of 110, pCO2 of 70, pH 7.4. Those arterial blood gases were done on 50%. The patient's currently on saline at 75 mL an hour, and propofol at 45 mcg/kg/m. Tube feeds have not been started as yet. We will do a daily interruption of sedation, and a spontaneous breathing trial with pressure support of 5 and CPAP of 5. Hopefully, her weaning parameters will be excellent, and we will get her extubated. White count 8.7, hemoglobin 10.5, hematocrit 32.9, with a normal platelet count. Sodium 136, potassium 4.1, chlorides 90, CO2 42, anion gap 4, BUN 19, creatinine 0.91. Chest x-ray shows cardiomegaly, and some mild fluid overload. Progress note dated 06/20/2021. 81-year-old female transferred from an outside hospital. The patient was sent down with a episode of acute hypoxemic respiratory failure secondary to COPD exacerbation. She was a heavy smoker in the past. Yesterday, we saw her, she was on the mechanical ventilator. We did do a daily interruption of sedation, and a spontaneous breathing trial. She tolerated it well, and we were able to extubate her to BiPAP. Currently, she is on metformin half liters nasal cannula, which is her home dose. In addition, she getting saline at 75 mL an hour. She is feeling much better. She didn't passed her swallow evaluation, and her diet can be advanced. White count 12.1, hemoglobin 11.2, hematocrit 36. 1, platelet count 256,000. Sodium 137, potassium 3.8, chlorides 93, CO2 38, anion gap 6, BUN and creatinine were 23 and 1.08. Microbiology showing Susanne albicans in the sputum, and one of the blood cultures are showing gram-positive cocci in clusters. It is not yet been identified. It may route returner to be a contaminant such as staph epidermidis. Chest x-ray compared to yesterday's x- ray is improved, although, there is some edema and/or pneumonia present. Progress note dated 06/21/2021. 81-year-old female, who was transferred from an outside hospital. She was admitted with a diagnosis of acute COPD exacerbation. She was intubated up there and transferred down. We were able to do a spontaneous breathing trial on the patient, and get her extubated. This was 2 days ago. Currently, she is on oxygen at 4.5 L by nasal cannula. In addition, she's getting saline at 75 mL an hour. She did use of BiPAP last night with settings of 12/5 and 40%. The patient's vancomycin was discontinued. The patient is a candidate for general medical floor without telemetry. White count 10.8, hemoglobin 10.9, hematocrit 35.1, and platelet count is normal. Sodium 135, potassium 3.9, chlorides 95, CO2 37, anion gap 3, BUN 28, and creatinine 0.8. There was no chest x-ray today. Objective - Vital Signs Vital signs: Vital Signs Temp 97.8 F 06/21/21 04:00 Pulse 70 06/21/21 09:14 Resp 25 H 06/21/21 08:00 BP 130/64 06/21/21 08:00 Pulse Ox 92 L 06/21/21 08:00 Intake & Output 06/20/21 06/21/21 06/21/21 18:59 06:59 18:59 Intake Total 900 900 Output Total 755 890 Balance 145 10 Weight 111.2 kg Intake: IV 900 900 Sodium Chloride 0.9% 1, 900 900 000 ml @ 75 mls/hr IV . [id number] [facility] Rx#:[id number] Output: Urine 755 890 Other: Voiding Method Indwelling Catheter Indwelling Catheter Indwelling Catheter ABP, PAP, CO, CI - Last Documented Arterial Blood Pressure 167/66 - Exam No acute distress, currently on 4. 5 L nasal cannula. Awake and alert. HEENT examination is grossly unremarkable. Neck supple. Full range of motion. No adenopathy thyromegaly or neck vein distention. Cardiovascular examination reveals regular rhythm rate. S1-S2 normal. No S3 or S4. No discernible murmur noted. Heart sounds are distant. Heart rate 70 bpm. Lungs reveal coarse bilateral rhonchi. Bilateral expiratory wheezes are noted. Breath sounds are equal bilaterally. There are no crackles. Breath sounds are generally improved. Abdomen soft bowel sounds are heard. No masses or tenderness. Extremities are intact. No cyanosis clubbing or edema. Skin is without rash or lesion. Neurologic examination is brief but nonfocal. - Labs CBC & Chem 7: 06/21/21 02:55 06/21/21 02:55 Labs: Abnormal Lab Results - Last 24 Hours (Table) 06/20/21 06/21/21 06/21/21 Range/Units 20:16 02:55 02:55 WBC 10.8 H (3.8-10.6) k/uL RBC 3.55 L (3.80-5.40) m/uL Hgb 10.9 L (11.4-16.0) gm/dL Neutrophils # 9.7 H (1.3-7.7) k/uL Lymphocytes # 0.5 L (1.0-4.8) k/uL Sodium 135 L (137-145) mmol/L Chloride 95 L (98-107) mmol/L Carbon Dioxide 37 H (22-30) mmol/L BUN 28 H (7-17) mg/dL Glucose 173 H (74-99) mg/dL POC Glucose (mg/dL) 152 H (75-99) mg/dL Calcium 8.1 L (8.4-10.2) mg/dL 06/21/21 Range/Units 07:24 WBC (3.8-10.6) k/uL RBC (3.80-5.40) m/uL Hgb (11.4-16.0) gm/dL Neutrophils # (1.3-7.7) k/uL Lymphocytes # (1.0-4.8) k/uL Sodium (137-145) mmol/L Chloride (98-107) mmol/L Carbon Dioxide (22-30) mmol/L BUN (7-17) mg/dL Glucose (74-99) mg/dL POC Glucose (mg/dL) 177 H (75-99) mg/dL Calcium (8.4-10.2) mg/dL Microbiology - Last 24 Hours (Table) 06/18/21 15:44 Blood Culture Gram Stain - Final Blood Blood Culture - Final Micrococcus species 06/18/21 20:30 Gram Stain - Final Sputum Sputum Culture - Final Susanne albicans 06/18/21 15:44 Blood Culture - Final Blood Assessment and Plan Assessment: Acute on chronic hypoxemic and hypercapnic respiratory failure, secondary to COPD, as well as possible pickwickian syndrome, and possibly aspiration pneumonia, status post intubation and mechanical ventilation on June 18, and successful extubation on 06/19/2021. History of obstructive sleep apnea syndrome, noncompliant with CPAP. Chronic cor pulmonale and pulmonary hypertension. Previous history of heavy tobacco use. History of type 2 diabetes. Hyperlipidemia. Benign essential hypertension. History of hypothyroidism. Plan: Plan dated 06/19/2021. The patient will have a daily interruption of sedation, and a spontaneous breathing trial, with pressure support of 5 and CPAP of 5. Propofol be held. The patient is able to be extubated, we will do so. The patient fails her spontaneous breathing trial, we will start back on the ventilator, sedation, and tube feedings. Prognosis remains very guarded. We did order a chest x-ray, C BC, basic metabolic profile, and a blood gas for tomorrow, if the patient remains on the ventilator. We will continue to follow. Prognosis is guarded. Medications are reviewed. Plan dated 06/20/2021. For the time being, the patient will continue on vancomycin. Zosyn was discontinued. She didn't passed her swallow evaluation, so her diet will be advanced. X-rays, medications, labs are all reviewed. We'll keep her on the vancomycin until the blood cultures have been fully evaluated. We will continue to follow make recommendations where appropriate. Prognosis is guarded. Cleveprex is discontinued. The patient remains on albuterol sulfate, ipratropium bromide, Solu-Medrol, formoterol, and budesonide. Plan dated 06/21/2021. The patient's vancomycin was discontinued. She did passed her swallow evaluation so the diet was advanced. Labs, x-rays, medications are all reviewed. No chest x-ray today. She remains on formoterol and Pulmicort. In addition, she is on DuoNeb 4 times a day and when necessary, and Solu-Medrol. We'll continue to follow and make recommendations where appropriate. In my opinion, the patient could be transferred out to the general medical floor with out telemetry. Time with Patient: Less than 30
[2021-06-21 11:56] LABS: Glucose,Whole Blood 156 mg/dL (75-99)
[2021-06-21] MEDS ORDERED: VANCOMYCIN 2,000 MG in SODIUM CHLORIDE 0.9% 500 ML 500 ML IVPB SCH (12:00)
--- NOTE | 2021-06-21 13:15 | P.PN ---
Subjective Progress Note Date: 06/21/21 This is an 81-year-old female who presented to the from [place] with shortness of breath and changes to mentation due to severe hypercapnic respiratory failure. She was intubated at outside hospital and transferred. 06/19/2021 Patient is evaluated in intensive care unit. She is being followed closely by intensive care/pulmonary services. Patient is still currently intubated. Labs today show white count of 8.7, hemoglobin 10.5, neutrophils 8.2. Sodium is 136, potassium 4.1, chloride 90, CO2 42, BUN 19, creatinine 0.91, blood sugars in the 170s, total protein 5.8 albumin 3. Pro-calcitonin level is 0.08. Liver enzymes are normal. Vitals show a heart rate of 82 sinus rhythm, blood pressure 126/62, she is afebrile, T-max the last 24 hours is 100, 94% oxygen saturation. Urine culture and sputum culture are negative, patient is on empiric antibiotic coverage with Zosyn, as well as IV solu-medrol and updrafts. Chest x-ray shows cardiomegaly, basilar effusions, difficult to exclude pneumonia, pulmonary venous hypertension and interstitial edema. Prognosis is guarded for this pa tient due to chronic respiratory status and noncompliance, hopefully she will be able to be extubated today. 06/20/2021 Patient was extubated about 24 hours ago, and is currently on a 5 L nasal cannu la. She uses 4.5 L of oxygen via nasal cannula at home. She is an ex-smoker, states that she quit in her early 50s she started smoking at the age of 25. She does live by herself but has family that checks on her. She was recently in the hospital and discharged and sent to rehab however she checked herself out because she felt like she was too independent for rehab. Patient does have a history of sleep apnea, she reports that she has an old CPAP machine however when she went within the last year for a reevaluation she never fell asleep during her sleep study they would not give her a new CPAP. She worked with PT today was able to sit on the edge of the bed. She is tolerating a diet today. She denies any shortness of breath or cough, denies any chest pain, chest pressure or palpitations. She denies any nausea vomiting or diarrhea. Chest x- ray today shows improvement in aeration, but may be lower lobe atelectasis verse pneumonia or edema. Labs today show white count 0.1, hemoglobin 11.2, sodium 137, potassium 3.8, chloride 93, CO2 38, BUN 23, creatinine 1.08. Sugars in the 140s. Blood pressure 160/70, afebrile, heart rate 88. 06/21/2021 Patient is evaluated today sitting up at the bedside in the ICU, being followed closely by record clerk/pulmonary services. Patient states that she feels tired and weak today and does not feel ready for discharge. She is on her home dose of oxygen at 4.5 L oxygen saturation 92%. She is afebrile, blood pressure today is 130/64. Labs today show white count 10.8, hemoglobin 10.9, sodium 135, potassium 3.9, chloride 95, CO2 37, BUN 20, creatinine 0.98, sugars in the 150s, calcium 8.1. Patient did complain of a episode of heartburn, we'll add prophylaxis. She was cleared for discharge out of the ICU to medical floor, will not need telemetry monitoring. Blood cultures positive for micrococcus is most likely contaminant as a culture taken at the same time was negative. She will be able to discharge home tomorrow most likely. We will work on beginning to taper steroids if okay with pulmonary services. ROS Constitutional: Denied any fatigue denied any fever. Cardio vascular: denied any chest pain, palpitations Gastrointestinal: denied any nausea vomiting, reports heart burn Pulmonary: Denied any shortness of breath cough Neurologic denied any new focal deficits All inpatient medications were reviewed and appropriate changes in these medications as dictated in the interval history and assessment and plan. PHYSICAL EXAMINATION: GENERAL: The patient is alert and oriented x3, not in any acute distress. Well developed, well nourished. Obese. HEENT: Pupils are round and equally reacting to light. EOMI. No scleral icterus. No conjunctival pallor. Normocephalic, atraumatic. No pharyngeal erythema. No thyromegaly. CARDIOVASCULAR: S1 and S2 present. No murmurs, rubs, or gallops. PULMONARY: Chest is clear to auscultation, no wheezing or crackles. ABDOMEN: Soft, nontender, nondistended, normoactive bowel sounds. No palpable organomegaly. MUSCULOSKELETAL: No joint swelling or deformity. EXTREMITIES: No cyanosis, clubbing, nonpitting pedal edema NEUROLOGICAL: Gross neurological examination did not reveal any focal deficits. SKIN: No rashes. Assessment and plan Assessment Chronic obstructive pulmonary disease, acute exacerbation with acute hypoxic hypercarbic respiratory failure, extubated on 06/19 - currently on 4.5 L NC which is home dose Possible aspiration pneumonia, procalcitonin WNL at 0.08 not suggestive bacterial pneumonia, patient on home dose of NC, improving, ABX were discontinue d History of obstructive sleep apnea, noncompliant with CPAP Pulmonary hypertension, chronic Acute respiratory alkalosis, improving Diabetes mellitus type 2 with hyperglycemia Hypertension Hyponatremia, hypovolemic Anemia, macrocytic, requires further workup Hypothyroidism GI prophylaxis: IV Protonix DVT prophylaxis: Lovenox FULL CODE Plan Taper IV steroids Continue NovoLog sliding scale coverage Continue all other supportive care PT/OT Repeat labs tomorrow Objective - Vital Signs Vital signs: Vital Signs Temp 97.8 F 06/21/21 04:00 Pulse 77 06/21/21 12:50 Resp 16 06/21/21 12:50 BP 130/64 06/21/21 08:00 Pulse Ox 92 L 06/21/21 08:00 Intake & Output 06/20/21 06/21/21 06/21/21 18:59 06:59 18:59 Intake Total 900 900 Output Total 755 890 Balance 145 10 Weight 111.2 kg Intake: IV 900 900 Sodium Chloride 0.9% 1, 900 900 000 ml @ 75 mls/hr IV . [id number] [facility] Rx#:[id number] Output: Urine 755 890 Other: Voiding Method Indwelling Catheter Indwelling Catheter Indwelling Catheter ABP, PAP, CO, CI - Last Documented Arterial Blood Pressure 167/66 - Labs CBC & Chem 7: 06/21/21 02:55 06/21/21 02:55 Labs: Abnormal Lab Results - Last 24 Hours (Table) 06/20/21 06/21/21 06/21/21 Range/Units 20:16 02:55 02:55 WBC 10.8 H (3.8-10.6) k/uL RBC 3.55 L (3.80-5.40) m/uL Hgb 10.9 L (11.4-16.0) gm/dL Neutrophils # 9.7 H (1.3-7.7) k/uL Lymphocytes # 0.5 L (1.0-4.8) k/uL Sodium 135 L (137-145) mmol/L Chloride 95 L (98-107) mmol/L Carbon Dioxide 37 H (22-30) mmol/L BUN 28 H (7-17) mg/dL Glucose 173 H (74-99) mg/dL POC Glucose (mg/dL) 152 H (75-99) mg/dL Calcium 8.1 L (8.4-10.2) mg/dL 06/21/21 06/21/21 Range/Units 07:24 11:54 WBC (3.8-10.6) k/uL RBC (3.80-5.40) m/uL Hgb (11.4-16.0) gm/dL Neutrophils # (1.3-7.7) k/uL Lymphocytes # (1.0-4.8) k/uL Sodium (137-145) mmol/L Chloride (98-107) mmol/L Carbon Dioxide (22-30) mmol/L BUN (7-17) mg/dL Glucose (74-99) mg/dL POC Glucose (mg/dL) 177 H 156 H (75-99) mg/dL Calcium (8.4-10.2) mg/dL Microbiology - Last 24 Hours (Table) 06/18/21 15:44 Blood Culture Gram Stain - Final Blood Blood Culture - Final Micrococcus species 06/18/21 20:30 Gram Stain - Final Sputum Sputum Culture - Final Susanen albicans Assessment and Plan Time with Patient: Greater than 30
[2021-06-21 16:49] LABS: Glucose,Whole Blood 129 mg/dL (75-99)
[2021-06-21 19:57] LABS: Glucose,Whole Blood 182 mg/dL (75-99)
[2021-06-22 04:18] LABS: Basophils % (A) 0 %; Eosinophils % (A) 0 %; HCT 33.9 % (34.0-46.0); HGB 10.6 gm/dL (11.4-16.0); Hypochromasia Slight; Lymphocytes # (A) 0.4 k/uL (1.0-4.8); Lymphocytes % (A) 3 %; MCH 30.9 pg (25.0-35.0); MCHC 31.3 g/dL (31.0-37.0); MCV 98.9 fL (80.0-100.0); Mean Platelet Volume 7.5; Monocytes # (A) 0.3 k/uL (0-1.0); Monocytes % (A) 3 %; Neutrophils # (A) 9.7 k/uL (1.3-7.7); Neutrophils % (A) 93 %; Platelet Count 230 k/uL (150-450); RBC 3.42 m/uL (3.80-5.40); RDW 14.1 % (11.5-15.5); WBC 10.4 k/uL (3.8-10.6)
[2021-06-22 04:40] LABS: Calcium 8.1 mg/dL (8.4-10.2); Potassium 4.5 mmol/L (3.5-5.1)
[2021-06-22 06:23] LABS: Glucose,Whole Blood 166 mg/dL (75-99)
[2021-06-22] MEDS: SODIUM CHLORIDE 0.9% 1,000 ML IV SCH ×2 (06:27→15:49)
[2021-06-22] MEDS: INSULIN ASPART (NovoLOG) 100 UNIT/ML VIAL SQ SCH ×4 (06:30→21:02)
[2021-06-22] MEDS: LEVOTHYROXINE 75 MCG TAB PO SCH (06:30)
[2021-06-22] MEDS: methylPREDNISolone SOD SUCCI 125 MG/2 ML VIAL IV SCH (06:31)
[2021-06-22] MEDS: IPRATROPIUM-ALBUTEROL 3 ML NEB INHALATION SCH ×4 (08:22→20:32)
[2021-06-22] MEDS: FORMOTEROL FUMARATE 20 MCG/2 ML NEBU INHALATION SCH (08:22)
[2021-06-22] MEDS: BUDESONIDE 1 MG/2 ML NEBU INHALATION SCH (08:22)
[2021-06-22] MEDS: PANTOPRAZOLE 40 MG/10 ML VIAL IV SCH (08:28)
[2021-06-22] MEDS: ENOXAPARIN 40 MG/0.4 ML SYRINGE SQ SCH (08:29)
[2021-06-22] MEDS: cloNIDine HCL 0.1 MG TAB PO SCH ×2 (08:29→21:32)
[2021-06-22] MEDS: FUROSEMIDE 20 MG TAB PO SCH (08:29)
[2021-06-22] MEDS: ATORVASTATIN 20 MG TAB PO SCH (08:29)
--- NOTE | 2021-06-22 10:40 | P.PN ---
Subjective Progress Note Date: 06/22/21 This is an 81-year-old female who presented to the from [place] with shortness of breath and changes to mentation due to severe hypercapnic respiratory failure. She was intubated at outside hospital and transferred. 06/19/2021 Patient is evaluated in intensive care unit. She is being followed closely by intensive care/pulmonary services. Patient is still currently intubated. Labs today show white count of 8.7, hemoglobin 10.5, neutrophils 8.2. Sodium is 136, potassium 4.1, chloride 90, CO2 42, BUN 19, creatinine 0.91, blood sugars in the 170s, total protein 5.8 albumin 3. Pro-calcitonin level is 0.08. Liver enzymes are normal. Vitals show a heart rate of 82 sinus rhythm, blood pressure 126/62, she is afebrile, T-max the last 24 hours is 100, 94% oxygen saturation. Urine culture and sputum culture are negative, patient is on empiric antibiotic coverage with Zosyn, as well as IV solu-medrol and updrafts. Chest x-ray shows cardiomegaly, basilar effusions, difficult to exclude pneumonia, pulmonary venous hypertension and interstitial edema. Prognosis is guarded for this pa tient due to chronic respiratory status and noncompliance, hopefully she will be able to be extubated today. 06/20/2021 Patient was extubated about 24 hours ago, and is currently on a 5 L nasal cannu la. She uses 4.5 L of oxygen via nasal cannula at home. She is an ex-smoker, states that she quit in her early 50s she started smoking at the age of 25. She does live by herself but has family that checks on her. She was recently in the hospital and discharged and sent to rehab however she checked herself out because she felt like she was too independent for rehab. Patient does have a history of sleep apnea, she reports that she has an old CPAP machine however when she went within the last year for a reevaluation she never fell asleep during her sleep study they would not give her a new CPAP. She worked with PT today was able to sit on the edge of the bed. She is tolerating a diet today. She denies any shortness of breath or cough, denies any chest pain, chest pressure or palpitations. She denies any nausea vomiting or diarrhea. Chest x- ray today shows improvement in aeration, but may be lower lobe atelectasis verse pneumonia or edema. Labs today show white count 0.1, hemoglobin 11.2, sodium 137, potassium 3.8, chloride 93, CO2 38, BUN 23, creatinine 1.08. Sugars in the 140s. Blood pressure 160/70, afebrile, heart rate 88. 06/21/2021 Patient is evaluated today sitting up at the bedside in the ICU, being followed closely by morphology teacher/pulmonary services. Patient states that she feels tired and weak today and does not feel ready for discharge. She is on her home dose of oxygen at 4.5 L oxygen saturation 92%. She is afebrile, blood pressure today is 130/64. Labs today show white count 10.8, hemoglobin 10.9, sodium 135, potassium 3.9, chloride 95, CO2 37, BUN 20, creatinine 0.98, sugars in the 150s, calcium 8.1. Patient did complain of a episode of heartburn, we'll add prophylaxis. She was cleared for discharge out of the ICU to medical floor, will not need telemetry monitoring. Blood cultures positive for micrococcus is most likely contaminant as a culture taken at the same time was negative. She will be able to discharge home tomorrow most likely. We will work on beginning to taper steroids if okay with pulmonary services. 06/22/21 Patient is still in the ICU, she can be transferred to the medical floor when bed is available. We'll plan for discharge tomorrow if okay by pulmonary services. Referral was placed for rehab on discharge. Patient states she feels weak. She denies any cough or shortness of breath. Labs today show hemoglobin 10.6, sodium 134, chloride 95, CO2 37, BUN 30, creatinine 0.96, sugars in the 160s. Vital signs today, temp 98.9, heart rate 82 sinus rhythm, blood pressure 125/66 inches 97% on 4.5 L nasal cannula which is home dose. ROS Constitutional: Denied any fatigue denied any fever. Cardio vascular: denied any chest pain, palpitations Gastrointestinal: denied any nausea vomiting, diarrhea Pulmonary: Denied any shortness of breath cough Neurologic denied any new focal deficits All inpatient medications were reviewed and appropriate changes in these medications as dictated in the interval history and assessment and plan. PHYSICAL EXAMINATION: GENERAL: The patient is alert and oriented x3, not in any acute distress. Well developed, well nourished. Obese. HEENT: Pupils are round and equally reacting to light. EOMI. No scleral icterus. No conjunctival pallor. Normocephalic, atraumatic. No pharyngeal erythema. No thyromegaly. CARDIOVASCULAR: S1 and S2 present. No murmurs, rubs, or gallops. PULMONARY: Chest is clear to auscultation, faint expiratory wheeze scattered ABDOMEN: Soft, nontender, nondistended, normoactive bowel sounds. No palpable organomegaly. MUSCULOSKELETAL: No joint swelling or deformity. EXTREMITIES: No cyanosis, clubbing, nonpitting pedal edema NEUROLOGICAL: Gross neurological examination did not reveal any focal deficits. SKIN: No rashes. Assessment and plan Assessment Chronic obstructive pulmonary disease, acute exacerbation with acute hypoxic hypercarbic respiratory failure, extubated on 06/19 - currently on 4.5 L NC which is home dose Possible aspiration pneumonia, procalcitonin WNL at 0.08 not suggestive bacterial pneumonia, patient on home dose of NC, improving, ABX were discontinued History of obstructive sleep apnea, noncompliant with CPAP Pulmonary hypertension, chronic Acute respiratory alkalosis, improving Diabetes mellitus type 2 with hyperglycemia Hypertension Hyponatremia, hypovolemic Anemia, macrocytic, requires further workup Hypothyroidism GI prophylaxis: IV Protonix DVT prophylaxis: Lovenox FULL CODE Plan PO steroids Continue NovoLog sliding scale coverage Continue all other supportive care Subacute rehab on discharge, maybe tomorrow. Objective - Vital Signs Vital signs: Vital Signs Temp 98.0 F 06/22/21 02:00 Pulse 67 06/22/21 02:00 Resp 14 06/22/21 02:00 BP 120/58 06/22/21 02:00 Pulse Ox 95 06/22/21 02:00 Intake & Output 06/21/21 06/22/21 06/22/21 18:59 06:59 18:59 Intake Total 1080 Output Total 800 650 Balance -800 430 Intake: Oral 1080 Output: Urine 800 650 Other: Voiding Method Indwelling Catheter Indwelling Catheter # Bowel Movements 1 ABP, PAP, CO, CI - Last Documented Arterial Blood Pressure 167/66 - Labs CBC & Chem 7: 06/22/21 03:41 06/22/21 03:41 Labs: Abnormal Lab Results - Last 24 Hours (Table) 06/21/21 06/21/21 06/21/21 Range/Units 11:54 16:47 19:55 RBC (3.80-5.40) m/uL Hgb (11.4-16.0) gm/dL Hct (34.0-46.0) % Neutrophils # (1.3-7.7) k/uL Lymphocytes # (1.0-4.8) k/uL Sodium (137-145) mmol/L Chloride (98-107) mmol/L Carbon Dioxide (22-30) mmol/L BUN (7-17) mg/dL Glucose (74-99) mg/dL POC Glucose (mg/dL) 156 H 129 H 182 H (75-99) mg/dL Calcium (8.4-10.2) mg/dL 06/22/21 06/22/21 06/22/21 Range/Units 03:41 03:41 06:22 RBC 3.42 L (3.80-5.40) m/uL Hgb 10.6 L (11.4-16.0) gm/dL Hct 33.9 L (34.0-46.0) % Neutrophils # 9.7 H (1.3-7.7) k/uL Lymphocytes # 0.4 L (1.0-4.8) k/uL Sodium 134 L (137-145) mmol/L Chloride 95 L (98-107) mmol/L Carbon Dioxide 37 H (22-30) mmol/L BUN 30 H (7-17) mg/dL Glucose 163 H (74-99) mg/dL POC Glucose (mg/dL) 166 H (75-99) mg/dL Calcium 8.1 L (8.4-10.2) mg/dL Microbiology - Last 24 Hours (Table) 06/18/21 15:44 Blood Culture Gram Stain - Final Blood Blood Culture - Final Micrococcus species Assessment and Plan Time with Patient: Greater than 30
[2021-06-22 12:06] LABS: Glucose,Whole Blood 185 mg/dL (75-99)
--- NOTE | 2021-06-22 12:38 | P.PN ---
Subjective Progress Note Date: 06/22/21 Principal diagnosis: Respiratory failure. This is an 81-year-old female with history of multiple medical problems including COPD, obstructive sleep apnea syndrome, supposed to be on CPAP, however the patient is not compliant with her CPAP. Patient [place] in the [facility] [place] [place], patient lives alone, and her family members from another town came to visit, she was found to be sleeping most of the time, unable to arouse most of the time. Patient was at times quite somnolent. EMS was called, and she was taken by EMS to a nearby ER emergency room, and the patient was found to have hypoxic and hypercapnic respiratory failure. Patient was intubated in the ER, and arrangements were made for the patient to be transferred to [facility] last night. She arrived this morning, and I was asked to see her on consultation because she is intubated and mechanically ventilated. Couldn't get much information from the patient or from the chart, but obviously the patie nt has clearly obesity/hypoventilation syndrome, possible COPD, and obstructive sleep apnea syndrome, and presented with hypoxic and hypercapnic respiratory failure. She is supposedly on oxygen at home prescribed to her by a plant safety leader not seen by any pulmonary physician in the past. And according to the family she is not compliant with her CPAP. Presently the patient is intubated and mechanically ventilated, she is on assist control rate of 12, tidal volume 450, FiO2 down to 50% and PEEP of 5. Earlier ABG on different setting showed a pO2 of 106 pCO2 61 pH of 7.55, based on the gases, I believe the patient has chronic hypercapnia probably her baseline pCO2 is in the 70s. Hence her assist control rate was cut down from 18 down to 12, and a repeat ABG is pending. In the meantime the patient is on propofol at 40 mcg/kg/m, she is sedated, and on arousable. Progress note dated 06/19/2021. 81-year-old female that we should down from an outside health the patient was intubated there for respiratory failure, and transferred here. She came in with COPD exacerbation. Currently, her peak airway pressure is 26 with a plateau pressure of 19. Her ventilator settings include the I'm assist control mode, rate of 10, tidal volume of 450, FiO2 40%, and PEEP of 5. Blood gases are very reasonable with a pO2 of 110, pCO2 of 70, pH 7.4. Those arterial blood gases were done on 50%. The patient's currently on saline at 75 mL an hour, and propofol at 45 mcg/kg/m. Tube feeds have not been started as yet. We will do a daily interruption of sedation, and a spontaneous breathing trial with pressure support of 5 and CPAP of 5. Hopefully, her weaning parameters will be excellent, and we will get her extubated. White count 8.7, hemoglobin 10.5, hematocrit 32.9, with a normal platelet count. Sodium 136, potassium 4.1, chlorides 90, CO2 42, anion gap 4, BUN 19, creatinine 0.91. Chest x-ray shows cardiomegaly, and some mild fluid overload. Progress note dated 06/20/2021. 81-year-old female transferred from an outside hospital. The patient was sent down with a episode of acute hypoxemic respiratory failure secondary to COPD exacerbation. She was a heavy smoker in the past. Yesterday, we saw her, she was on the mechanical ventilator. We did do a daily interruption of sedation, and a spontaneous breathing trial. She tolerated it well, and we were able to extubate her to BiPAP. Currently, she is on metformin half liters nasal cannula, which is her home dose. In addition, she getting saline at 75 mL an hour. She is feeling much better. She didn't passed her swallow evaluation, and her diet can be advanced. White count 12.1, hemoglobin 11.2, hematocrit 36. 1, platelet count 256,000. Sodium 137, potassium 3.8, chlorides 93, CO2 38, anion gap 6, BUN and creatinine were 23 and 1.08. Microbiology showing Susanne albicans in the sputum, and one of the blood cultures are showing gram-positive cocci in clusters. It is not yet been identified. It may manager community outreach to be a contaminant such as staph epidermidis. Chest x-ray compared to yesterday's x- ray is improved, although, there is some edema and/or pneumonia present. Progress note dated 06/21/2021. 81-year-old female, who was transferred from an outside hospital. She was admitted with a diagnosis of acute COPD exacerbation. She was intubated up there and transferred down. We were able to do a spontaneous breathing trial on the patient, and get her extubated. This was 2 days ago. Currently, she is on oxygen at 4.5 L by nasal cannula. In addition, she's getting saline at 75 mL an hour. She did use of BiPAP last night with settings of 12/5 and 40%. The patient's vancomycin was discontinued. The patient is a candidate for general medical floor without telemetry. White count 10.8, hemoglobin 10.9, hematocrit 35.1, and platelet count is normal. Sodium 135, potassium 3.9, chlorides 95, CO2 37, anion gap 3, BUN 28, and creatinine 0.8. There was no chest x-ray today. Progress note dated 06/22/2021. 81-year-old female, again seen in room 264. She was transferred from an outside hospital, for respiratory failure secondary to COPD. She was extubated a couple days ago. Currently, the patient's doing well. She's back on the same amount of oxygen that she usually uses at home, which is 4.5 L. She is getting no IV fluids. She is using BiPAP at nighttime, with settings of 12/5 and 40%. The patient could be transferred to general medical floor. Today, we'll DC her Solu-Medrol, and start her on prednisone, 40 mg a day, and also discontinue her Pulmicort and formoterol, and place her on Symbicort, 160/4.5, 2 puffs twice a day. White count 10.4, hemoglobin 10.6, hematocrit 33.9, and platelet count 330,000. Sodium 134, potassium 4.5, chlorides 95, CO2 37, BUN 30, creatinine 0.96. A CXR was not ordered for today. Objective - Vital Signs Vital signs: Vital Signs Temp 98.9 F 06/22/21 08:00 Pulse 82 06/22/21 08:50 Resp 16 06/22/21 08:00 BP 125/66 06/22/21 08:00 Pulse Ox 97 06/22/21 08:00 Intake & Output 06/21/21 06/22/21 06/22/21 18:59 06:59 18:59 Intake Total 1080 Output Total 800 650 Balance -800 430 Intake: Oral 1080 Output: Urine 800 650 Other: Voiding Method Indwelling Catheter Indwelling Catheter Indwelling Catheter # Bowel Movements 1 ABP, PAP, CO, CI - Last Documented Arterial Blood Pressure 167/66 - Exam No acute distress, currently on 4. 5 L nasal cannula. Awake and alert. HEENT examination is grossly unremarkable. Neck supple. Full range of motion. No adenopathy thyromegaly or neck vein distention. Cardiovascular examination reveals regular rhythm rate. S1-S2 normal. No S3 or S4. No discernible murmur noted. Heart sounds are distant. Heart rate 82 bpm. Lungs reveal coarse bilateral rhonchi. Bilateral expiratory wheezes are noted. Breath sounds are equal bilaterally. There are no crackles. Breath sounds are generally improved. Abdomen soft bowel sounds are heard. No masses or tenderness. Extremities are intact. No cyanosis clubbing or edema. Skin is without rash or lesion. Neurologic examination is brief but nonfocal. - Labs CBC & Chem 7: 06/22/21 03:41 06/22/21 03:41 Labs: Abnormal Lab Results - Last 24 Hours (Table) 06/21/21 06/21/21 06/22/21 Range/Units 16:47 19:55 03:41 RBC (3.80-5.40) m/uL Hgb (11.4-16.0) gm/dL Hct (34.0-46.0) % Neutrophils # (1.3-7.7) k/uL Lymphocytes # (1.0-4.8) k/uL Sodium 134 L (137-145) mmol/L Chloride 95 L (98-107) mmol/L Carbon Dioxide 37 H (22-30) mmol/L BUN 30 H (7-17) mg/dL Glucose 163 H (74-99) mg/dL POC Glucose (mg/dL) 129 H 182 H (75-99) mg/dL Calcium 8.1 L (8.4-10.2) mg/dL 06/22/21 06/22/21 06/22/21 Range/Units 03:41 06:22 12:04 RBC 3.42 L (3.80-5.40) m/uL Hgb 10.6 L (11.4-16.0) gm/dL Hct 33.9 L (34.0-46.0) % Neutrophils # 9.7 H (1.3-7.7) k/uL Lymphocytes # 0.4 L (1.0-4.8) k/uL Sodium (137-145) mmol/L Chloride (98-107) mmol/L Carbon Dioxide (22-30) mmol/L BUN (7-17) mg/dL Glucose (74-99) mg/dL POC Glucose (mg/dL) 166 H 185 H (75-99) mg/dL Calcium (8.4-10.2) mg/dL Microbiology - Last 24 Hours (Table) 06/18/21 15:44 Blood Culture Gram Stain - Final Blood Blood Culture - Final Micrococcus species Assessment and Plan Assessment: Acute on chronic hypoxemic and hypercapnic respiratory failure, secondary to COPD, as well as possible pickwickian syndrome, and possibly aspiration pneumonia, status post intubation and mechanical ventilation on June 18, and successful extubation on 06/19/2021. History of obstructive sleep apnea syndrome, noncompliant with CPAP. Chronic cor pulmonale and pulmonary hypertension. Previous history of heavy tobacco use. History of type 2 diabetes. Hyperlipidemia. Benign essential hypertension. History of hypothyroidism. Plan: Plan dated 06/19/2021. The patient will have a daily interruption of sedation, and a spontaneous breathing trial, with pressure support of 5 and CPAP of 5. Propofol be held. The patient is able to be extubated, we will do so. The patient fails her spontaneous breathing trial, we will start back on the ventilator, sedation, and tube feedings. Prognosis remains very guarded. We did order a chest x-ray, CBC, basic metabolic profile, and a blood gas for tomorrow, if the patient remains on the ventilator. We will continue to follow. Prognosis is guarded. Medications are reviewed. Plan dated 06/20/2021. For the time being, the patient will continue on vancomycin. Zosyn was discontinued. She didn't passed her swallow evaluation, so her diet will be advanced. X-rays, medications, labs are all reviewed. We'll keep her on the vancomycin until the blood cultures have been fully evaluated. We will continue to follow make recommendations where appropriate. Prognosis is guarded. Cleveprex is discontinued. The patient remains on albuterol sulfate, ipratropium bromide, Solu-Medrol, formoterol, and budesonide. Plan dated 06/21/2021. The patient's vancomycin was discontinued. She did passed her swallow ev aluation so the diet was advanced. Labs, x-rays, medications are all reviewed. No chest x-ray today. She remains on formoterol and Pulmicort. In addition, she is on DuoNeb 4 times a day and when necessary, and Solu-Medrol. We'll continue to follow and make recommendations where appropriate. In my opinion, the patient could be transferred out to the general medical floor without telemetry. Plan dated 06/22/2021. The patient's doing much better. She continues on oxygen at 4-1/2 L/m. This is her usual home dose. She's not receiving any IV fluids. Today, we discontinue Solu-Medrol and taper prednisone, 40 mg a day, in the morning with food. In addition, the patient's Pulmicort is discontinued, as well as the formoterol, and patient was placed on Symbicort to be used twice a day. The patient could be transferred to the general medical floor. Prognosis is guarded. Time with Patient: Less than 30
--- NOTE | 2021-06-22 13:42 | XR ---
EXAMINATION TYPE: XR chest 2V DATE OF EXAM: 06/22/2021 COMPARISON: Chest x-ray June 20, 2021 HISTORY: Dyspnea. TECHNIQUE: Frontal and lateral views of the chest are obtained. FINDINGS: There is persisting cardiomegaly with mild central vascular congestion and small bilateral pleural effusions. And associated bibasilar opacities. The osseous structures are intact. IMPRESSION: Findings consistent with CHF exacerbation, cardiomegaly and small bilateral pleural effu sions and mild central vascular congestion now present.
[2021-06-22 16:50] LABS: Glucose,Whole Blood 278 mg/dL (75-99)
[2021-06-22] MEDS: PIPERACILLIN-TAZOBACTAM 3.375 GM in SODIUM CHLORIDE 0.9% 100 ML IVPB SCH (17:17)
[2021-06-22 19:50] LABS: Glucose,Whole Blood 100 mg/dL (75-99)
[2021-06-22] MEDS: SYMBICORT 160-4.5 MCG INHALER INHALATION SCH (20:32)
[2021-06-23] MEDS: SODIUM CHLORIDE 0.9% 1,000 ML IV SCH ×2 (05:48→21:26)
[2021-06-23] MEDS: LEVOTHYROXINE 75 MCG TAB PO SCH (05:48)
[2021-06-23 07:15] LABS: Glucose,Whole Blood 108 mg/dL (75-99)
[2021-06-23 07:17] LABS: African American GFR (CKD) 58 (>60 ml/min/1.73 sqM); Anion Gap 4 mmol/L; Blood Urea Nitrogen 37 mg/dL (7-17); Calcium 8.2 mg/dL (8.4-10.2); Carbon Dioxide 36 mmol/L (22-30); Chloride 96 mmol/L (98-107); Glucose 112 mg/dL (74-99); Non-African American GFR(CKD) 50 (>60 ml/min/1.73 sqM); Potassium 4.3 mmol/L (3.5-5.1); Sodium 136 mmol/L (137-145)
[2021-06-23] MEDS: INSULIN ASPART (NovoLOG) 100 UNIT/ML VIAL SQ SCH ×4 (07:57→22:31)
[2021-06-23] MEDS: predniSONE 20 MG TAB PO SCH (08:35)
[2021-06-23] MEDS: ATORVASTATIN 20 MG TAB PO SCH (08:35)
[2021-06-23] MEDS: cloNIDine HCL 0.1 MG TAB PO SCH ×2 (08:35→22:31)
[2021-06-23] MEDS: FUROSEMIDE 20 MG TAB PO SCH (08:35)
[2021-06-23] MEDS: ENOXAPARIN 40 MG/0.4 ML SYRINGE SQ SCH (08:35)
[2021-06-23 09:03] VITALS: BMI 37.3
[2021-06-23] MEDS: IPRATROPIUM-ALBUTEROL 3 ML NEB INHALATION SCH ×4 (09:30→20:29)
[2021-06-23] MEDS: SYMBICORT 160-4.5 MCG INHALER INHALATION SCH ×2 (09:30→20:29)
[2021-06-23] MEDS: PANTOPRAZOLE 40 MG/10 ML VIAL IV SCH (11:23)
[2021-06-23 11:57] LABS: Glucose,Whole Blood 135 mg/dL (75-99)
--- NOTE | 2021-06-23 15:24 | P.PN ---
Subjective Progress Note Date: 06/23/21 Principal diagnosis: Chronic obstructive pulmonary disease, acute exacerbation with acute hypoxic hypercarbic respiratory failure, extubated on 06/19 - currently on 4.5 L NC which is home dose Possible aspiration pneumonia This is an 81-year-old female who presented to the [facility] from [place] with shortness of breath and changes to mentation due to severe hypercapnic respiratory failure. She was intubated at outside hospital and transferred. patient was extubated yesterday and is transferred to medical floor Objective - Vital Signs Vital signs: Vital Signs Temp 98.3 F 06/23/21 07:38 Pulse 64 06/23/21 09:45 Resp 19 06/23/21 07:38 BP 126/70 06/23/21 07:38 Pulse Ox 95 06/23/21 09:34 Intake & Output 06/22/21 06/23/21 06/23/21 18:59 06:59 18:59 Intake Total 100 Balance 100 Weight 111.2 kg Intake: Oral 100 Other: Voiding Method Indwelling Catheter External Catheter External Catheter ABP, PAP, CO, CI - Last Documented Arterial Blood Pressure 167/66 - Exam GENERAL: The patient is alert and oriented x3, not in any acute distress. Well developed, well nourished. Obese. HEENT: Pupils are round and equally reacting to light. EOMI. No scleral icterus. No conjunctival pallor. Normocephalic, atraumatic. No pharyngeal erythema. No thyromegaly. CARDIOVASCULAR: S1 and S2 present. No murmurs, rubs, or gallops. PULMONARY: Chest is clear to auscultation, faint expiratory wheeze scattered ABDOMEN: Soft, nontender, nondistended, normoactive bowel sounds. No palpable organomegaly. MUSCULOSKELETAL: No joint swelling or deformity. EXTREMITIES: No cyanosis, clubbing, nonpitting pedal edema NEUROLOGICAL: Gross neurological examination did not reveal any focal deficits. SKIN: No rashes. - Labs CBC & Chem 7: 06/22/21 03:41 06/23/21 06:18 Labs: Abnormal Lab Results - Last 24 Hours (Table) 06/22/21 06/22/21 06/22/21 Range/Units 12:04 16:48 19:48 Sodium (137-145) mmol/L Chloride (98-107) mmol/L Carbon Dioxide (22-30) mmol/L BUN (7-17) mg/dL Glucose (74-99) mg/dL POC Glucose (mg/dL) 185 H 278 H 100 H (75-99) mg/dL Calcium (8.4-10.2) mg/dL 06/23/21 06/23/21 Range/Units 06:18 07:14 Sodium 136 L (137-145) mmol/L Chloride 96 L (98-107) mmol/L Carbon Dioxide 36 H (22-30) mmol/L BUN 37 H (7-17) mg/dL Glucose 112 H (74-99) mg/dL POC Glucose (mg/dL) 108 H (75-99) mg/dL Calcium 8.2 L (8.4-10.2) mg/dL Assessment and Plan Assessment: Chronic obstructive pulmonary disease, acute exacerbation with acute hypoxic hypercarbic respiratory failure, extubated on 06/19 - currently on 4.5 L NC which is home dose Possible aspiration pneumonia, procalcitonin WNL at 0.08 not suggestive bacterial pneumonia, patient on home dose of NC, improving, ABX were discontinued History of obstructive sleep apnea, noncompliant with CPAP Pulmonary hypertension, chronic Acute respiratory alkalosis, improving Diabetes mellitus type 2 with hyperglycemia Hypertension Hyponatremia, hypovolemic Anemia, macrocytic, requires further workup Hypothyroidism GI prophylaxis: IV Protonix DVT prophylaxis: Lovenox FULL CODE PO steroids Continue NovoLog sliding scale coverage Continue all other supportive care Subacute rehab on discharge, maybe tomorrow.
[2021-06-23 16:55] LABS: Glucose,Whole Blood 180 mg/dL (75-99)
--- NOTE | 2021-06-23 19:38 | P.PN ---
Subjective Progress Note Date: 06/23/21 Principal diagnosis: Respiratory failure. This is an 81-year-old female with history of multiple medical problems including COPD, obstructive sleep apnea syndrome, supposed to be on CPAP, however the patient is not compliant with her CPAP. Patient [place] [facility] [facility] [place], patient lives alone, and her family members from another town came to visit, she was found to be sleeping most of the time, unable to arouse most of the time. Patient was at times quite somnolent. EMS was called, and she was taken by EMS to a nearby ER emergency room, and the patient was found to have hypoxic and hypercapnic respiratory failure. Patient was intubated in the ER, and arrangements were made for the patient to be transferred to [facility] last night. She arrived this morning, and I was asked to see her on consultation because she is intubated and mechanically ventilated. Couldn't get much information from the patient or from the chart, but obviously the patie nt has clearly obesity/hypoventilation syndrome, possible COPD, and obstructive sleep apnea syndrome, and presented with hypoxic and hypercapnic respiratory failure. She is supposedly on oxygen at home prescribed to her by a chief librarian work with blind not seen by any pulmonary physician in the past. And according to the family she is not compliant with her CPAP. Presently the patient is intubated and mechanically ventilated, she is on assist control rate of 12, tidal volume 450, FiO2 down to 50% and PEEP of 5. Earlier ABG on different setting showed a pO2 of 106 pCO2 61 pH of 7.55, based on the gases, I believe the patient has chronic hypercapnia probably her baseline pCO2 is in the 70s. Hence her assist control rate was cut down from 18 down to 12, and a repeat ABG is pending. In the meantime the patient is on propofol at 40 mcg/kg/m, she is sedated, and on arousable. Progress note dated 06/19/2021. 81-year-old female that we should down from an outside health the patient was intubated there for respiratory failure, and transferred here. She came in with COPD exacerbation. Currently, her peak airway pressure is 26 with a plateau pressure of 19. Her ventilator settings include the I'm assist control mode, rate of 10, tidal volume of 450, FiO2 40%, and PEEP of 5. Blood gases are very reasonable with a pO2 of 110, pCO2 of 70, pH 7.4. Those arterial blood gases were done on 50%. The patient's currently on saline at 75 mL an hour, and propofol at 45 mcg/kg/m. Tube feeds have not been started as yet. We will do a daily interruption of sedation, and a spontaneous breathing trial with pressure support of 5 and CPAP of 5. Hopefully, her weaning parameters will be excellent, and we will get her extubated. White count 8.7, hemoglobin 10.5, hematocrit 32.9, with a normal platelet count. Sodium 136, potassium 4.1, chlorides 90, CO2 42, anion gap 4, BUN 19, creatinine 0.91. Chest x-ray shows cardiomegaly, and some mild fluid overload. Progress note dated 06/20/2021. 81-year-old female transferred from an outside hospital. The patient was sent down with a episode of acute hypoxemic respiratory failure secondary to COPD exacerbation. She was a heavy smoker in the past. Yesterday, we saw her, she was on the mechanical ventilator. We did do a daily interruption of sedation, and a spontaneous breathing trial. She tolerated it well, and we were able to extubate her to BiPAP. Currently, she is on metformin half liters nasal cannula, which is her home dose. In addition, she getting saline at 75 mL an hour. She is feeling much better. She didn't passed her swallow evaluation, and her diet can be advanced. White count 12.1, hemoglobin 11.2, hematocrit 36. 1, platelet count 256,000. Sodium 137, potassium 3.8, chlorides 93, CO2 38, anion gap 6, BUN and creatinine were 23 and 1.08. Microbiology showing Susanne albicans in the sputum, and one of the blood cultures are showing gram-positive cocci in clusters. It is not yet been identified. It may heel turner to be a contaminant such as staph epidermidis. Chest x-ray compared to yesterday's x- ray is improved, although, there is some edema and/or pneumonia present. Progress note dated 06/21/2021. 81-year-old female, who was transferred from an outside hospital. She was admitted with a diagnosis of acute COPD exacerbation. She was intubated up there and transferred down. We were able to do a spontaneous breathing trial on the patient, and get her extubated. This was 2 days ago. Currently, she is on oxygen at 4.5 L by nasal cannula. In addition, she's getting saline at 75 mL an hour. She did use of BiPAP last night with settings of 12/5 and 40%. The patient's vancomycin was discontinued. The patient is a candidate for general medical floor without telemetry. White count 10.8, hemoglobin 10.9, hematocrit 35.1, and platelet count is normal. Sodium 135, potassium 3.9, chlorides 95, CO2 37, anion gap 3, BUN 28, and creatinine 0.8. There was no chest x-ray today. Progress note dated 06/22/2021. 81-year-old female, again seen in room 264. She was transferred from an outside hospital, for respiratory failure secondary to COPD. She was extubated a couple days ago. Currently, the patient's doing well. She's back on the same amount of oxygen that she usually uses at home, which is 4.5 L. She is getting no IV fluids. She is using BiPAP at nighttime, with settings of 12/5 and 40%. The patient could be transferred to general medical floor. Today, we'll DC her Solu-Medrol, and start her on prednisone, 40 mg a day, and also discontinue her Pulmicort and formoterol, and place her on Symbicort, 160/4.5, 2 puffs twice a day. White count 10.4, hemoglobin 10.6, hematocrit 33.9, and platelet count 330,000. Sodium 134, potassium 4.5, chlorides 95, CO2 37, BUN 30, creatinine 0.96. A CXR was not ordered for today. Progress note dated 06/23/2021. 81-year-old female, again seen in room 461. The patient was in the ICU yesterday. She was transferred out yesterday. Currently, she is on her home oxygen dose which is 4-1/2 L/m. She is getting saline at 50 mL an hour. The patient is doing much better. She is much less short of breath. She sleeping well at nighttime. She is using BiPAP at nighttime. Sodium 136, potassium 4.3, chlorides 96, CO2 36, anion gap 4, BUN 37, and creatinine 1.03. No new chest x- ray today. Objective - Vital Signs Vital signs: Vital Signs Temp 98.0 F 06/23/21 14:00 Pulse 69 06/23/21 17:01 Resp 20 06/23/21 14:00 BP 112/66 06/23/21 14:00 Pulse Ox 95 06/23/21 16:41 Intake & Output 06/23/21 06/23/21 06/24/21 06:59 18:59 06:59 Intake Total 900 Balance 900 Weight 111.2 kg Intake: IV 900 Sodium Chloride 0.9% 1, 900 000 ml @ 75 mls/hr IV . [id number] [facility] Rx#:[id number] Other: Voiding Method External Catheter External Catheter ABP, PAP, CO, CI - Last Documented Arterial Blood Pressure 167/66 - Exam No acute distress, currently on 4. 5 L nasal cannula. Awake and alert. Saturations are 95%. HEENT examination is grossly unremarkable. Neck supple. Full range of motion. No adenopathy thyromegaly or neck vein distention. Cardiovascular examination reveals regular rhythm rate. S1-S2 normal. No S3 or S4. No discernible murmur noted. Heart sounds are distant. Heart rate 69 bpm. Lungs reveal coarse bilateral rhonchi. Bilateral expiratory wheezes are noted. Breath sounds are equal bilaterally. There are no crackles. Breath sounds are generally improved. Abdomen soft bowel sounds are heard. No masses or tenderness. Extremities are intact. No cyanosis clubbing or edema. Skin is without rash or lesion. Neurologic examination is brief but nonfocal. - Labs CBC & Chem 7: 06/22/21 03:41 06/23/21 06:18 Labs: Abnormal Lab Results - Last 24 Hours (Table) 06/22/21 06/23/21 06/23/21 Range/Units 19:48 06:18 07:14 Sodium 136 L (137-145) mmol/L Chloride 96 L (98-107) mmol/L Carbon Dioxide 36 H (22-30) mmol/L BUN 37 H (7-17) mg/dL Glucose 112 H (74-99) mg/dL POC Glucose (mg/dL) 100 H 108 H (75-99) mg/dL Calcium 8.2 L (8.4-10.2) mg/dL 06/23/21 06/23/21 Range/Units 11:56 16:53 Sodium (137-145) mmol/L Chloride (98-107) mmol/L Carbon Dioxide (22-30) mmol/L BUN (7-17) mg/dL Glucose (74-99) mg/dL POC Glucose (mg/dL) 135 H 180 H (75-99) mg/dL Calcium (8.4-10.2) mg/dL Assessment and Plan Assessment: Acute on chronic hypoxemic and hypercapnic respiratory failure, secondary to COPD, as well as possible pickwickian syndrome, and possibly aspiration pneumonia, status post intubation and mechanical ventilation on June 18, and successful extubation on 06/19/2021. History of obstructive sleep apnea syndrome, noncompliant with CPAP. Chronic cor pulmonale and pulmonary hypertension. Previous history of heavy tobacco use. History of type 2 diabetes. Hyperlipidemia. Benign essential hypertension. History of hypothyroidism. Plan: Plan dated 06/19/2021. The patient will have a daily interruption of sedation, and a spontaneous breathing trial, with pressure support of 5 and CPAP of 5. Propofol be held. The patient is able to be extubated, we will do so. The patient fails her spontaneous breathing trial, we will start back on the ventilator, sedation, and tube feedings. Prognosis remains very guarded. We did order a chest x-ray, CBC, basic metabolic profile, and a blood gas for tomorrow, if the patient remains on the ventilator. We will continue to follow. Prognosis is guarded. Medications are reviewed. Plan dated 06/20/2021. For the time being, the patient will continue on vancomycin. Zosyn was discontinued. She didn't passed her swallow evaluation, so her diet will be advanced. X-rays, medications, labs are all reviewed. We'll keep her on the vancomycin until the blood cultures have been fully evaluated. We will continue to follow make recommendations where appropriate. Prognosis is guarded. Cleveprex is discontinued. The patient remains on albuterol sulfate, ipratropium bromide, Solu-Medrol, formoterol, and budesonide. Plan dated 06/21/2021. The patient's vancomycin was discontinued. She did passed her swallow evaluation so the diet was advanced. Labs, x-rays, medications are all reviewed. No chest x-ray today. She remains on formoterol and Pulmicort. In addition, she is on DuoNeb 4 times a day and when necessary, and Solu-Medrol. We'll continue to follow and make recommendations where appropriate. In my opinion, the patient could be transferred out to the general medical floor without telemetry. Plan dated 06/22/2021. The patient's doing much better. She continues on oxygen at 4-1/2 L/m. This is her usual home dose. She's not receiving any IV fluids. Today, we discontinue Solu-Medrol and taper prednisone, 40 mg a day, in the morning with food. In addition, the patient's Pulmicort is discontinued, as well as the formoterol, and patient was placed on Symbicort to be used twice a day. The patient could be transferred to the general medical floor. Prognosis is guarded. Plan dated 06/23/2021. The patient is on saline at 50 mL an hour, and she is currently on 4-1/2 L nasal cannula, which is how much oxygen she uses at home. She is feeling much better. Labs and x-rays are all reviewed. The patient remains on appropriate medications including prednisone, DuoNeb, and Symbicort. We will continue to follow make recommendations where appropriate. The patient was transferred out of the unit yesterday, and is resting comfortably on the general medical floor. Time with Patient: Less than 30
[2021-06-23 20:15] LABS: Glucose,Whole Blood 191 mg/dL (75-99)
[2021-06-24] MEDS: LEVOTHYROXINE 75 MCG TAB PO SCH (04:56)
[2021-06-24 07:00] LABS: Glucose,Whole Blood 98 mg/dL (75-99)
[2021-06-24] MEDS: SYMBICORT 160-4.5 MCG INHALER INHALATION SCH ×2 (07:40→20:08)
[2021-06-24] MEDS: IPRATROPIUM-ALBUTEROL 3 ML NEB INHALATION SCH ×4 (07:40→20:08)
[2021-06-24] MEDS: INSULIN ASPART (NovoLOG) 100 UNIT/ML VIAL SQ SCH ×4 (07:41→21:38)
[2021-06-24] MEDS: cloNIDine HCL 0.1 MG TAB PO SCH ×2 (07:57→21:37)
[2021-06-24] MEDS: predniSONE 20 MG TAB PO SCH (07:57)
[2021-06-24] MEDS: ENOXAPARIN 40 MG/0.4 ML SYRINGE SQ SCH (07:57)
[2021-06-24] MEDS: PANTOPRAZOLE 40 MG/10 ML VIAL IV SCH (07:57)
[2021-06-24] MEDS: ATORVASTATIN 20 MG TAB PO SCH (07:57)
[2021-06-24] MEDS: FUROSEMIDE 20 MG TAB PO SCH (07:57)
[2021-06-24] MEDS: SODIUM CHLORIDE 0.9% 1,000 ML IV SCH (08:02)
[2021-06-24 11:45] LABS: Glucose,Whole Blood 168 mg/dL (75-99)
[2021-06-24] MEDS ORDERED: FUROSEMIDE 10 MG/ML 4 ML VIAL IV STA (13:17)
--- NOTE | 2021-06-24 16:01 | P.PN ---
Subjective Progress Note Date: 06/24/21 Principal diagnosis: Possible aspiration pneumonia On 06/24/2001 patient seen in follow-up on medical surgical floor, she is currently on 5 L of oxygen pulse ox is 92%, she sits up in a chair, breathing comfortably, she states she feels a bit more dyspneic on today's exam. Denied any worsening cough, no phlegm production. She has completed her antibiotics, she is on daily dose of oral Lasix, Symbicort, and nebulized DuoNeb. Objective - Vital Signs Vital signs: Vital Signs Temp 98.3 F 06/24/21 14:00 Pulse 84 06/24/21 15:50 Resp 18 06/24/21 14:00 BP 113/49 06/24/21 14:00 Pulse Ox 95 06/24/21 14:00 Intake & Output 06/23/21 06/24/21 06/24/21 18:59 06:59 18:59 Intake Total 900 1820 Output Total 950 Balance 900 870 Weight 111.2 kg Intake: IV 900 1240 Sodium Chloride 0.9% 1, 900 1240 000 ml @ 75 mls/hr IV . [id number] [facility] Rx#:[id number] Oral 580 Output: Urine 950 Other: Voiding Method External Catheter External Catheter Toilet ABP, PAP, CO, CI - Last Documented Arterial Blood Pressure 167/66 - Exam GENERAL EXAM: Alert, active, comfortable in no apparent distress. HEAD: Normocephalic/atraumatic. EYES: Normal reaction of pupils, equal size. Conjunctiva pink, sclera white. NOSE: Clear with pink turbinates. THROAT: No erythema or exudates. NECK: No masses, no JVD, no thyroid enlargement, no adenopathy. CHEST: No chest wall deformity. Symmetrical expansion. LUNGS: Equal air entry with mild crackles CVS: Regular rate and rhythm, normal S1 and S2, no gallops, no murmurs, no rubs ABDOMEN: Soft, nontender. No hepatosplenomegaly, normal bowel sounds, no guarding or rigidity. EXTREMITIES: No clubbing, no edema, no cyanosis, 2+ pulses and upper and lower extremities. MUSCULOSKELETAL: Muscle strength and tone normal. SPINE: No scoliosis or deformity SKIN: No rashes CENTRAL NERVOUS SYSTEM: Alert and oriented -3. No focal deficits, tone is normal in all 4 extremities. PSYCHIATRIC: Alert and oriented -3. Appropriate affect. Intact judgment and insight. - Labs CBC & Chem 7: 06/22/21 03:41 06/23/21 06:18 Labs: Abnormal Lab Results - Last 24 Hours (Table) 06/23/21 06/23/21 06/24/21 Range/Units 16:53 20:13 11:44 POC Glucose (mg/dL) 180 H 191 H 168 H (75-99) mg/dL Assessment and Plan Plan: Assessment: #1. Acute on chronic hypoxic and hypercapnic respiratory failure secondary to acute exacerbation of COPD as well as possible pickwickian syndrome, and possibility of aspiration pneumonia. Patient required intubation and mechanical support on June 18, and successfully weaned and extubated on 06/19/2021. Currently tolerating extubation well currently on 5 L of oxygen #2. Underlying history of obstructive sleep apnea noncompliant with CPAP #3. Chronic cor pulmonale and pulmonary hypertension #4. Previous history of heavy tobacco use #5. History of type 2 diabetes mellitus #6. Hyperlipidemia #7. Hypertension #8. History of hypothyroidism Plan: Patient has completed antibiotics Last chest x-ray from 06/22/2021 showed findings consistent with CHF We'll give the patient 1 dose of IV Lasix 40 mg Obtain follow-up chest x-ray tomorrow, labs including CBC, BMP, Accurate intake and output, daily weights Wean FiO2 to maintain O2 saturations at 88% and above I performed a history & physical examination of the patient and discussed their management with my nurse practitioner, Jessie Reagan. I reviewed the nurse practitioner's note and agree with the documented findings and plan of care. Lung sounds are positive for crackles throughout the lung ansari. The findings and the impression was discussed with the patient. I attest to the documentation by the nurse practitioner. Time with Patient: Less than 30
[2021-06-24 16:39] LABS: Glucose,Whole Blood 177 mg/dL (75-99)
[2021-06-24 20:43] LABS: Glucose,Whole Blood 183 mg/dL (75-99)
[2021-06-25] MEDS: LEVOTHYROXINE 75 MCG TAB PO SCH (06:00)
[2021-06-25 06:53] LABS: Glucose,Whole Blood 102 mg/dL (75-99)
[2021-06-25] MEDS: INSULIN ASPART (NovoLOG) 100 UNIT/ML VIAL SQ SCH ×4 (07:28→22:44)
[2021-06-25] MEDS: ENOXAPARIN 40 MG/0.4 ML SYRINGE SQ SCH (07:37)
[2021-06-25] MEDS: PANTOPRAZOLE 40 MG/10 ML VIAL IV SCH (07:38)
[2021-06-25] MEDS: FUROSEMIDE 20 MG TAB PO SCH (07:38)
[2021-06-25] MEDS: predniSONE 20 MG TAB PO SCH (07:38)
[2021-06-25] MEDS: cloNIDine HCL 0.1 MG TAB PO SCH ×2 (07:38→22:44)
[2021-06-25] MEDS: ATORVASTATIN 20 MG TAB PO SCH (07:38)
[2021-06-25] MEDS: IPRATROPIUM-ALBUTEROL 3 ML NEB INHALATION SCH ×4 (09:03→20:01)
[2021-06-25] MEDS: SYMBICORT 160-4.5 MCG INHALER INHALATION SCH ×2 (09:03→20:00)
[2021-06-25 11:26] LABS: Glucose,Whole Blood 164 mg/dL (75-99)
[2021-06-25 11:51] LABS: African American GFR (CKD) 68.5 (60.0-200.0); Anion Gap 10.4 mmol/L (10.00-18.00); BUN/Creat Ratio 27.89 Ratio (12.00-20.00); Blood Urea Nitrogen 25.1 mg/dL (9.0-27.0); Calcium 8.2 mg/dL (8.7-10.3); Carbon Dioxide 32.6 mmol/L (20.0-27.5); Non-African American GFR(CKD) 59.1 (60.0-200.0); Potassium 3.6 mmol/L (3.5-5.5)
[2021-06-25 11:56] LABS: Basophils % (A) 0 %; Eosinophils # (A) 0.1 k/uL (0-0.7); Eosinophils % (A) 1 %; HCT 34.8 % (34.0-46.0); Lymphocytes # (A) 1.2 k/uL (1.0-4.8); Lymphocytes % (A) 16 %; MCH 30.8 pg (25.0-35.0); MCHC 31.7 g/dL (31.0-37.0); MCV 97.2 fL (80.0-100.0); Mean Platelet Volume 8.4; Monocytes # (A) 0.5 k/uL (0-1.0); Monocytes % (A) 7 %; Neutrophils # (A) 5.7 k/uL (1.3-7.7); Neutrophils % (A) 75 %; Platelet Count 252 k/uL (150-450); RBC 3.58 m/uL (3.80-5.40); RDW 14.7 % (11.5-15.5); WBC 7.6 k/uL (3.8-10.6)
--- NOTE | 2021-06-25 12:10 | XR ---
EXAMINATION TYPE: XR chest 1V portable DATE OF EXAM: 06/25/2021 COMPARISON: 06/22/2021 HISTORY: 81 years Female. STUDY INDICATION GIVEN: dyspnea . TECHNIQUE: AP chest radiograph IMPRESSION: Bibasilar right greater than left patchy and mild interstitial opacities without significant change c ompared to prior. Small right pleural effusion without significant change. No left pleural effusion. No pneumothorax. Cardiac silhouette difficult to evaluate due to lower lobe opacities though appears stable. No acute osseous abnormality.
[2021-06-25 16:55] LABS: Glucose,Whole Blood 200 mg/dL (75-99)
--- NOTE | 2021-06-25 17:56 | P.PN ---
Subjective Progress Note Date: 06/25/21 Principal diagnosis: Respiratory failure. This is an 81-year-old female with history of multiple medical problems including COPD, obstructive sleep apnea syndrome, supposed to be on CPAP, however the patient is not compliant with her CPAP. Patient lives up in the [facility] area, patient lives alone, and her family members from another town came to visit, she was found to be sleeping most of the time, unable to arouse most of the time. Patient was at times quite somnolent. EMS was called, and she was taken by EMS to a nearby ER emergency room, and the patient was found to have hypoxic and hypercapnic respiratory failure. Patient was intubated in the ER, and arrangements were made for the patient to be transferred to [facility] last night. She arrived this morning, and I was asked to see her on consultation because she is intubated and mechanically ventilated. Couldn't get much information from the patient or from the chart, but obviously the patie nt has clearly obesity/hypoventilation syndrome, possible COPD, and obstructive sleep apnea syndrome, and presented with hypoxic and hypercapnic respiratory failure. She is supposedly on oxygen at home prescribed to her by a occupational therapy asst not seen by any pulmonary physician in the past. And according to the family she is not compliant with her CPAP. Presently the patient is intubated and mechanically ventilated, she is on assist control rate of 12, tidal volume 450, FiO2 down to 50% and PEEP of 5. Earlier ABG on different setting showed a pO2 of 106 pCO2 61 pH of 7.55, based on the gases, I believe the patient has chronic hypercapnia probably her baseline pCO2 is in the 70s. Hence her assist control rate was cut down from 18 down to 12, and a repeat ABG is pending. In the meantime the patient is on propofol at 40 mcg/kg/m, she is sedated, and on arousable. Progress note dated 06/19/2021. 81-year-old female that we should down from an outside health the patient was intubated there for respiratory failure, and transferred here. She came in with COPD exacerbation. Currently, her peak airway pressure is 26 with a plateau pressure of 19. Her ventilator settings include the I'm assist control mode, rate of 10, tidal volume of 450, FiO2 40%, and PEEP of 5. Blood gases are very reasonable with a pO2 of 110, pCO2 of 70, pH 7.4. Those arterial blood gases were done on 50%. The patient's currently on saline at 75 mL an hour, and propofol at 45 mcg/kg/m. Tube feeds have not been started as yet. We will do a daily interruption of sedation, and a spontaneous breathing trial with pressure support of 5 and CPAP of 5. Hopefully, her weaning parameters will be excellent, and we will get her extubated. White count 8.7, hemoglobin 10.5, hematocrit 32.9, with a normal platelet count. Sodium 136, potassium 4.1, chlorides 90, CO2 42, anion gap 4, BUN 19, creatinine 0.91. Chest x-ray shows cardiomegaly, and some mild fluid overload. Progress note dated 06/20/2021. 81-year-old female transferred from an outside hospital. The patient was sent down with a episode of acute hypoxemic respiratory failure secondary to COPD exacerbation. She was a heavy smoker in the past. Yesterday, we saw her, she was on the mechanical ventilator. We did do a daily interruption of sedation, and a spontaneous breathing trial. She tolerated it well, and we were able to extubate her to BiPAP. Currently, she is on metformin half liters nasal cannula, which is her home dose. In addition, she getting saline at 75 mL an hour. She is feeling much better. She didn't passed her swallow evaluation, and her diet can be advanced. White count 12.1, hemoglobin 11.2, hematocrit 36. 1, platelet count 256,000. Sodium 137, potassium 3.8, chlorides 93, CO2 38, anion gap 6, BUN and creatinine were 23 and 1.08. Microbiology showing Susanne albicans in the sputum, and one of the blood cultures are showing gram-positive cocci in clusters. It is not yet been identified. It may return to vendor to be a contaminant such as staph epidermidis. Chest x-ray compared to yesterday's x- ray is improved, although, there is some edema and/or pneumonia present. Progress note dated 06/21/2021. 81-year-old female, who was transferred from an outside hospital. She was admitted with a diagnosis of acute COPD exacerbation. She was intubated up there and transferred down. We were able to do a spontaneous breathing trial on the patient, and get her extubated. This was 2 days ago. Currently, she is on oxygen at 4.5 L by nasal cannula. In addition, she's getting saline at 75 mL an hour. She did use of BiPAP last night with settings of 12/5 and 40%. The patient's vancomycin was discontinued. The patient is a candidate for general medical floor without telemetry. White count 10.8, hemoglobin 10.9, hematocrit 35.1, and platelet count is normal. Sodium 135, potassium 3.9, chlorides 95, CO2 37, anion gap 3, BUN 28, and creatinine 0.8. There was no chest x-ray today. Progress note dated 06/22/2021. 81-year-old female, again seen in room 264. She was transferred from an outside hospital, for respiratory failure secondary to COPD. She was extubated a couple days ago. Currently, the patient's doing well. She's back on the same amount of oxygen that she usually uses at home, which is 4.5 L. She is getting no IV fluids. She is using BiPAP at nighttime, with settings of 12/5 and 40%. The patient could be transferred to general medical floor. Today, we'll DC her Solu-Medrol, and start her on prednisone, 40 mg a day, and also discontinue her Pulmicort and formoterol, and place her on Symbicort, 160/4.5, 2 puffs twice a day. White count 10.4, hemoglobin 10.6, hematocrit 33.9, and platelet count 330,000. Sodium 134, potassium 4.5, chlorides 95, CO2 37, BUN 30, creatinine 0.96. A CXR was not ordered for today. Progress note dated 06/23/2021. 81-year-old female, again seen in room 461. The patient was in the ICU yesterday. She was transferred out yesterday. Currently, she is on her home oxygen dose which is 4-1/2 L/m. She is getting saline at 50 mL an hour. The patient is doing much better. She is much less short of breath. She sleeping well at nighttime. She is using BiPAP at nighttime. Sodium 136, potassium 4.3, chlorides 96, CO2 36, anion gap 4, BUN 37, and creatinine 1.03. No new chest x- ray today. Progress note dated 06/25/2021. 81-year-old female, again seen in room 461. The patient was in the ICU 2 days ago. The patient has a history of severe COPD, and is on home oxygen, at 4.5 L, . Currently, she is also getting saline at 50 mL an hour. She is feeling much better, and hopefully be discharged in the next 24-48 hours. White count 7.6, hemoglobin 11, hematocrit 34.8, platelet count 252,000. Sodium 138, potassium 3.6, chlorides 95, CO2 33, anion gap 11, BUN 25.1, and creatinine 0.9. Chest x-ray shows bibasilar right greater than left patchy interstitial opacities/atelectasis. There is also a small right pleural effusion. Objective - Vital Signs Vital signs: Vital Signs Temp 98.1 F 06/25/21 14:00 Pulse 56 L 06/25/21 16:32 Resp 17 06/25/21 14:00 BP 118/60 06/25/21 14:00 Pulse Ox 95 06/25/21 14:00 Intake & Output 06/24/21 06/25/21 06/25/21 18:59 06:59 18:59 Intake Total 200 200 Output Total 300 Balance 200 -100 Weight 109.8 kg Intake: Oral 200 200 Output: Urine 300 Other: Voiding Method Toilet Toilet Toilet ABP, PAP, CO, CI - Last Documented Arterial Blood Pressure 167/66 - Exam No acute distress, currently on 4. 5 L nasal cannula. Awake and alert. Saturations are 94%. HEENT examination is grossly unremarkable. Neck supple. Full range of motion. No adenopathy thyromegaly or neck vein distention. Cardiovascular examination reveals regular rhythm rate. S1-S2 normal. No S3 or S4. No discernible murmur noted. Heart sounds are distant. Heart rate 66 bpm. Lungs reveal coarse bilateral rhonchi. Bilateral expiratory wheezes are noted. Breath sounds are equal bilaterally. There are no crackles. Breath sounds are generally improved. Abdomen soft bowel sounds are heard. No masses or tenderness. Extremities are intact. No cyanosis clubbing or edema. Skin is without rash or lesion. Neurologic examination is brief but nonfocal. - Labs CBC & Chem 7: 06/25/21 06:38 06/25/21 06:38 Labs: Abnormal Lab Results - Last 24 Hours (Table) 06/24/21 06/25/21 06/25/21 Range/Units 20:42 06:38 06:38 RBC 3.58 L (3.80-5.40) m/uL Hgb 11.0 L (11.4-16.0) gm/dL Chloride 95 L (96-109) mmol/L Carbon Dioxide 32.6 H (20.0-27.5) mmol/L Est GFR (CKD-EPI)NonAf 59.1 L (60.0-200.0) BUN/Creatinine Ratio 27.89 H (12.00-20.00) Ratio POC Glucose (mg/dL) 183 H (75-99) mg/dL Calcium 8.2 L (8.7-10.3) mg/dL 06/25/21 06/25/21 06/25/21 Range/Units 06:50 11:23 16:53 RBC (3.80-5.40) m/uL Hgb (11.4-16.0) gm/dL Chloride (96-109) mmol/L Carbon Dioxide (20.0-27.5) mmol/L Est GFR (CKD-EPI)NonAf (60.0-200.0) BUN/Creatinine Ratio (12.00-20.00) Ratio POC Glucose (mg/dL) 102 H 164 H 200 H (75-99) mg/dL Calcium (8.7-10.3) mg/dL Assessment and Plan Assessment: Acute on chronic hypoxemic and hypercapnic respiratory failure, secondary to COPD, as well as possible pickwickian syndrome, and possibly aspiration pneumonia, status post intubation and mechanical ventilation on June 18, and successful extubation on 06/19/2021. History of obstructive sleep apnea syndrome, noncompliant with CPAP. Chronic cor pulmonale and pulmonary hypertension. Previous history of heavy tobacco use. History of type 2 diabetes. Hyperlipidemia. Benign essential hypertension. History of hypothyroidism. Plan: Plan dated 06/19/2021. The patient will have a daily interruption of sedation, and a spontaneous breathing trial, with pressure support of 5 and CPAP of 5. Propofol be held. The patient is able to be extubated, we will do so. The patient fails her spontaneous breathing trial, we will start back on the ventilator, sedation, and tube feedings. Prognosis remains very guarded. We did order a chest x-ray, CBC, basic metabolic profile, and a blood gas for tomorrow, if the patient remains on the ventilator. We will continue to follow. Prognosis is guarded. Medications are reviewed. Plan dated 06/20/2021. For the time being, the patient will continue on vancomycin. Zosyn was discontinued. She didn't passed her swallow evaluation, so her diet will be advanced. X-rays, medications, labs are all reviewed. We'll keep her on the v ancomycin until the blood cultures have been fully evaluated. We will continue to follow make recommendations where appropriate. Prognosis is guarded. Cleveprex is discontinued. The patient remains on albuterol sulfate, ipratropium bromide, Solu-Medrol, formoterol, and budesonide. Plan dated 06/21/2021. The patient's vancomycin was discontinued. She did passed her swallow evaluation so the diet was advanced. Labs, x-rays, medications are all reviewed. No chest x-ray today. She remains on formoterol and Pulmicort. In addition, she is on DuoNeb 4 times a day and when necessary, and Solu-Medrol. We'll continue to follow and make recommendations where appropriate. In my opinion, the patient could be transferred out to the general medical floor without telemetry. Plan dated 06/22/2021. The patient's doing much better. She continues on oxygen at 4-1/2 L/m. This is her usual home dose. She's not receiving any IV fluids. Today, we discontinue Solu-Medrol and taper prednisone, 40 mg a day, in the morning with food. In addition, the patient's Pulmicort is discontinued, as well as the formoterol, and patient was placed on Symbicort to be used twice a day. The patient could be transferred to the general medical floor. Prognosis is guarded. Plan dated 06/23/2021. The patient is on saline at 50 mL an hour, and she is currently on 4-1/2 L nasal cannula, which is how much oxygen she uses at home. She is feeling much better. Labs and x-rays are all reviewed. The patient remains on appropriate medications including prednisone, DuoNeb, and Symbicort. We will continue to follow make recommendations where appropriate. The patient was transferred out of the unit yesterday, and is resting comfortably on the general medical floor. Plan dated 06/25/2021. The patient remains on her home oxygen dose of 4.5 L. She is also on DuoNeb, Symbicort, and prednisone. The patient is hoping to be able to be discharged home in the near future, and if not home, may be a detention, close to her family. Additional recommendations and suggestions are forthcoming. We will continue to follow make recommendations where appropriate. Prognosis is certainly guarded. Her COPD is quite severe. Time with Patient: Less than 30
--- NOTE | 2021-06-25 19:24 | P.PN ---
Subjective Progress Note Date: 06/24/21 Principal diagnosis: Chronic obstructive pulmonary disease, acute exacerbation with acute hypoxic hypercarbic respiratory failure, extubated on 06/19 - currently on 4.5 L NC which is home dose Possible aspiration pneumonia This is an 81-year-old female who presented to the [facility] from [place] with shortness of breath and changes to mentation due to severe hypercapnic respiratory failure. She was intubated at outside hospital and transferred. patient was extubated yesterday and is transferred to medical floor 06/24/2021 Patient seen and evaluated in follow-up sitting in bedside chair, reports some difficulty breathing this morning Vital signs are reviewed. Temperature 98.3, pulse 84, respiration 18 and blood pressure 113/49; she is currently on 5 L of oxygen pulse ox is 92% She has completed her antibiotics, she is on daily dose of oral Lasix, Symbicort, and nebulized DuoNeb. Last chest x-ray completed on 06/22/2021 was consistent with CHF; patient did receive 1 dose of Lasix 40 mg IV 1 by pulmonary service with recommendations to repeat chest x-ray tomorrow morning for further recommendations We will continue current management with plan to wean oxygen off keeping O2 saturation above 88% Patient has been evaluated by PT/OT and is recommended skilled rehab Objective - Vital Signs Vital signs: Vital Signs Temp 98.4 F 06/24/21 07:09 Pulse 67 06/24/21 11:02 Resp 14 06/24/21 07:09 BP 120/51 06/24/21 07:09 Pulse Ox 92 L 06/24/21 07:09 Intake & Output 06/23/21 06/24/21 06/24/21 18:59 06:59 18:59 Intake Total 900 1820 Output Total 950 Balance 900 870 Weight 111.2 kg Intake: IV 900 1240 Sodium Chloride 0.9% 1, 900 1240 000 ml @ 75 mls/hr IV . [id number] [facility] Rx#:[id number] Oral 580 Output: Urine 950 Other: Voiding Method External Catheter External Catheter Toilet ABP, PAP, CO, CI - Last Documented Arterial Blood Pressure 167/66 - Exam GENERAL: The patient is alert and oriented x3, not in any acute distress. Well developed, well nourished. Obese. HEENT: Pupils are round and equally reacting to light. EOMI. No scleral icterus. No conjunctival pallor. Normocephalic, atraumatic. No pharyngeal erythema. No thyromegaly. CARDIOVASCULAR: S1 and S2 present. No murmurs, rubs, or gallops. PULMONARY: Chest is clear to auscultation, faint expiratory wheeze scattered ABDOMEN: Soft, nontender, nondistended, normoactive bowel sounds. No palpable organomegaly. MUSCULOSKELETAL: No joint swelling or deformity. EXTREMITIES: No cyanosis, clubbing, nonpitting pedal edema NEUROLOGICAL: Gross neurological examination did not reveal any focal deficits. SKIN: No rashes. - Labs CBC & Chem 7: 06/25/21 06:38 06/25/21 06:38 Labs: Abnormal Lab Results - Last 24 Hours (Table) 06/23/21 06/23/21 06/24/21 Range/Units 16:53 20:13 11:44 POC Glucose (mg/dL) 180 H 191 H 168 H (75-99) mg/dL Assessment and Plan Assessment: Chronic obstructive pulmonary disease, acute exacerbation with acute hypoxic hypercarbic respiratory failure, extubated on 06/19 - currently on 4.5 L NC which is home dose Possible aspiration pneumonia, procalcitonin WNL at 0.08 not suggestive bacterial pneumonia, patient on home dose of NC, improving, ABX were discontinued History of obstructive sleep apnea, noncompliant with CPAP Pulmonary hypertension, chronic Acute respiratory alkalosis, improving Diabetes mellitus type 2 with hyperglycemia Hypertension Hyponatremia, hypovolemic Anemia, macrocytic, requires further workup Hypothyroidism GI prophylaxis: IV Protonix DVT prophylaxis: Lovenox FULL CODE PO steroids Continue NovoLog sliding scale coverage Continue all other supportive care Subacute rehab on discharge, maybe tomorrow.
--- NOTE | 2021-06-25 19:33 | P.PN ---
Subjective Progress Note Date: 06/25/21 Principal diagnosis: Chronic obstructive pulmonary disease, acute exacerbation with acute hypoxic hypercarbic respiratory failure, extubated on 06/19 - currently on 4.5 L NC which is home dose Possible aspiration pneumonia This is an 81-year-old female who presented to the from [place] with shortness of breath and changes to mentation due to severe hypercapnic respiratory failure. She was intubated at outside hospital and transferred. patient was extubated yesterday and is transferred to medical floor 06/24/2021 Patient seen and evaluated in follow-up sitting in bedside chair, reports some difficulty breathing this morning Vital signs are reviewed. Temperature 98.3, pulse 84, respiration 18 and blood pressure 113/49; she is currently on 5 L of oxygen pulse ox is 92% She has completed her antibiotics, she is on daily dose of oral Lasix, Symbicort, and nebulized DuoNeb. Last chest x-ray completed on 06/22/2021 was consistent with CHF; patient did receive 1 dose of Lasix 40 mg IV 1 by pulmonary service with recommendations to repeat chest x-ray tomorrow morning for further recommendations We will continue current management with plan to wean oxygen off keeping O2 saturation above 88% Patient has been evaluated by PT/OT and is recommended skilled rehab 06/25/2021 Patient is seen and evaluated sitting up in bedside chair; does report improved breathing after receiving a dose of Lasix yesterday White count 7.6, hemoglobin 11, hematocrit 34.8, platelet count 252,000. Sodium 138, potassium 3.6, chlorides 95, CO2 33, anion gap 11, BUN 25.1, and creatinine 0.9. Chest x-ray shows bibasilar right greater than left patchy interstitial opacities/atelectasis. There is also a small right pleural effusion. Patient remains on DuoNeb nebulizer treatments, Symbicort and prednisone Has been evaluated by PT/OT and is recommended skilled rehab; case management on board and working on patient transferred Objective - Vital Signs Vital signs: Vital Signs Temp 98.0 F 06/25/21 06:09 Pulse 60 06/25/21 09:14 Resp 20 06/25/21 06:09 BP 143/79 06/25/21 06:09 Pulse Ox 98 06/25/21 06:09 Intake & Output 06/24/21 06/25/21 06/25/21 18:59 06:59 18:59 Intake Total 200 200 Output Total 300 Balance 200 -100 Weight 109.8 kg Intake: Oral 200 200 Output: Urine 300 Other: Voiding Method Toilet Toilet Toilet ABP, PAP, CO, CI - Last Documented Arterial Blood Pressure 167/66 - Exam GENERAL: The patient is alert and oriented x3, not in any acute distress. Well developed, well nourished. Obese. HEENT: Pupils are round and equally reacting to light. EOMI. No scleral icterus. No conjunctival pallor. Normocephalic, atraumatic. No pharyngeal erythema. No thyromegaly. CARDIOVASCULAR: S1 and S2 present. No murmurs, rubs, or gallops. PULMONARY: Chest is clear to auscultation, faint expiratory wheeze scattered ABDOMEN: Soft, nontender, nondistended, normoactive bowel sounds. No palpable organomegaly. MUSCULOSKELETAL: No joint swelling or deformity. EXTREMITIES: No cyanosis, clubbing, nonpitting pedal edema NEUROLOGICAL: Gross neurological examination did not reveal any focal deficits. SKIN: No rashes. - Labs CBC & Chem 7: 06/25/21 06:38 06/25/21 06:38 Labs: Abnormal Lab Results - Last 24 Hours (Table) 06/24/21 06/24/21 06/24/21 Range/Units 11:44 16:37 20:42 POC Glucose (mg/dL) 168 H 177 H 183 H (75-99) mg/dL 06/25/21 Range/Units 06:50 POC Glucose (mg/dL) 102 H (75-99) mg/dL Assessment and Plan Assessment: Chronic obstructive pulmonary disease, acute exacerbation with acute hypoxic hypercarbic respiratory failure, extubated on 06/19 - currently on 4.5 L NC w hich is home dose Possible aspiration pneumonia, procalcitonin WNL at 0.08 not suggestive bacterial pneumonia, patient on home dose of NC, improving, ABX were discontinued History of obstructive sleep apnea, noncompliant with CPAP Pulmonary hypertension, chronic Acute respiratory alkalosis, improving Diabetes mellitus type 2 with hyperglycemia Hypertension Hyponatremia, hypovolemic Anemia, macrocytic, requires further workup Hypothyroidism GI prophylaxis: IV Protonix DVT prophylaxis: Lovenox FULL CODE PO steroids Continue NovoLog sliding scale coverage Continue all other supportive care Subacute rehab on discharge, maybe tomorrow.
[2021-06-25 20:35] LABS: Glucose,Whole Blood 205 mg/dL (75-99)
[2021-06-25] MEDS: valACYclovir HCL 1,000 MG TABLET PO SCH (22:43)
[2021-06-25] MEDS: GABAPENTIN 100 MG CAP PO SCH (22:43)
[2021-06-26] MEDS: LEVOTHYROXINE 75 MCG TAB PO SCH (05:30)
[2021-06-26 07:08] LABS: Glucose,Whole Blood 102 mg/dL (75-99)
[2021-06-26] MEDS: INSULIN ASPART (NovoLOG) 100 UNIT/ML VIAL SQ SCH ×4 (08:27→21:58)
[2021-06-26] MEDS: SYMBICORT 160-4.5 MCG INHALER INHALATION SCH ×2 (09:21→19:47)
[2021-06-26] MEDS: IPRATROPIUM-ALBUTEROL 3 ML NEB INHALATION SCH ×4 (09:21→19:46)
[2021-06-26] MEDS: ENOXAPARIN 40 MG/0.4 ML SYRINGE SQ SCH (09:49)
[2021-06-26] MEDS: PANTOPRAZOLE 40 MG/10 ML VIAL IV SCH (09:49)
[2021-06-26] MEDS: valACYclovir HCL 1,000 MG TABLET PO SCH ×2 (09:50→21:58)
[2021-06-26] MEDS: ATORVASTATIN 20 MG TAB PO SCH (09:50)
[2021-06-26] MEDS: cloNIDine HCL 0.1 MG TAB PO SCH ×2 (09:50→21:58)
[2021-06-26] MEDS: predniSONE 20 MG TAB PO SCH (09:50)
[2021-06-26] MEDS: GABAPENTIN 100 MG CAP PO SCH ×2 (09:50→21:58)
[2021-06-26] MEDS: FUROSEMIDE 20 MG TAB PO SCH (09:50)
[2021-06-26 10:20] LABS: Basophils # (A) 0.01 X 10*3/uL (0.00-0.10); Basophils % (A) 0.1 %; Eosinophils # (A) 0.04 X 10*3/uL (0.04-0.35); Eosinophils % (A) 0.4 %; HCT 34.5 % (37.2-46.3); HGB 10.6 g/dL (12.0-15.0); Lymphocytes # (A) 1.51 X 10*3/uL (0.90-5.00); Lymphocytes % (A) 16.2 %; MCH 30.9 pg (27.0-32.0); MCHC 30.7 g/dL (32.0-37.0); MCV 100.6 fL (80.0-97.0); Mean Platelet Volume 10.7 fL (9.5-12.2); Monocytes # (A) 0.79 X 10*3/uL (0.20-1.00); Monocytes % (A) 8.5 %; Platelet Count 215 X 10*3/uL (140-440); RBC 3.43 X 10*6/uL (4.10-5.20); RDW 14.4 % (11.5-14.5); WBC 9.32 X 10*3/uL (4.50-10.00)
[2021-06-26 10:40] LABS: Anion Gap 9.2 mmol/L (10.00-18.00); BUN/Creat Ratio 32.63 Ratio (12.00-20.00); Blood Urea Nitrogen 26.1 mg/dL (9.0-27.0); Calcium 8.7 mg/dL (8.7-10.3); Carbon Dioxide 33.8 mmol/L (20.0-27.5); Non-African American GFR(CKD) 68.2 (60.0-200.0); Potassium 4.1 mmol/L (3.5-5.5)
[2021-06-26 11:39] LABS: Glucose,Whole Blood 149 mg/dL (75-99)
--- NOTE | 2021-06-26 12:18 | P.PN ---
Subjective Progress Note Date: 06/26/21 81-year-old here patient being seen in follow-up. The patient was in the intensive care unit few days back for respiratory failure secondary to COPD exacerbation and respiratory failure. She do not to be COVID 19 negative. The patient is currently on oxygen and she has home O2 at 4.5 L 24 7. She is cu rrently on 40 fraction by nasal cannula. Chest x-ray was showing some bibasilar pulmonary infiltrates right more than left. She is doing well for now. She is on a combination of bronchodilators and she is also on oral Lasix and she was taken off the IV Solu-Medrol and started on a prednisone burst taper starting with 40 mg by mouth daily. Her Lasix and currently is at 20 mg by mouth on a daily basis. She is also on Lovenox for DVT prophylaxis 40 mg subcu on a daily basis. Her home medications have been ordered resume. Her white cell count is at 9.3 with hemoglobin of 10.6, rest of the blood work shows a chronic metabolic alkalosis with a bicarb level of 33, glucose is 149, proBNP is 420, cultures of been all negative with exception of a sputum sample that showed Susanne albicans. Objective - Vital Signs Vital signs: Vital Signs Temp 98.5 F 06/26/21 08:00 Pulse 59 L 06/26/21 12:04 Resp 18 06/26/21 09:30 BP 139/50 06/26/21 08:00 Pulse Ox 98 06/26/21 12:04 Intake & Output 06/25/21 06/26/21 06/26/21 18:59 06:59 18:59 Intake Total 200 Output Total 300 Balance -300 200 Weight 110.4 kg Intake: Oral 200 Output: Urine 300 Other: Voiding Method Toilet Toilet ABP, PAP, CO, CI - Last Documented Arterial Blood Pressure 167/66 - Exam GENERAL EXAM: Alert, active, comfortable in no apparent distress. HEAD: Normocephalic/atraumatic. EYES: Normal reaction of pupils, equal size. Conjunctiva pink, sclera white. NOSE: Clear with pink turbinates. THROAT: No erythema or exudates. NECK: No masses, no JVD, no thyroid enlargement, no adenopathy. CHEST: No chest wall deformity. Symmetrical expansion. LUNGS: Equal air entry with mild crackles CVS: Regular rate and rhythm, normal S1 and S2, no gallops, no murmurs, no rubs ABDOMEN: Soft, nontender. No hepatosplenomegaly, normal bowel sounds, no gua rding or rigidity. EXTREMITIES: No clubbing, no edema, no cyanosis, 2+ pulses and upper and lower extremities. MUSCULOSKELETAL: Muscle strength and tone normal. SPINE: No scoliosis or deformity SKIN: No rashes CENTRAL NERVOUS SYSTEM: Alert and oriented -3. No focal deficits, tone is normal in all 4 extremities. PSYCHIATRIC: Alert and oriented -3. Appropriate affect. Intact judgment and insight. - Labs CBC & Chem 7: 06/26/21 06:12 06/26/21 06:12 Labs: Abnormal Lab Results - Last 24 Hours (Table) 06/25/21 06/25/21 06/26/21 Range/Units 16:53 20:33 06:12 RBC 3.43 L (4.10-5.20) X 10*6/uL Hgb 10.6 L (12.0-15.0) g/dL Hct 34.5 L (37.2-46.3) % MCV 100.6 H (80.0-97.0) fL MCHC 30.7 L (32.0-37.0) g/dL Immature Gran # 0.07 H (0.00-0.04) X 10*3/uL Carbon Dioxide (20.0-27.5) mmol/L Anion Gap (10.00-18.00) mmol/L BUN/Creatinine Ratio (12.00-20.00) Ratio POC Glucose (mg/dL) 200 H 205 H (75-99) mg/dL 06/26/21 06/26/21 06/26/21 Range/Units 06:12 07:06 11:37 RBC (4.10-5.20) X 10*6/uL Hgb (12.0-15.0) g/dL Hct (37.2-46.3) % MCV (80.0-97.0) fL MCHC (32.0-37.0) g/dL Immature Gran # (0.00-0.04) X 10*3/uL Carbon Dioxide 33.8 H (20.0-27.5) mmol/L Anion Gap 9.20 L (10.00-18.00) mmol/L BUN/Creatinine Ratio 32.63 H (12.00-20.00) Ratio POC Glucose (mg/dL) 102 H 149 H (75-99) mg/dL Assessment and Plan Plan: #1. Acute on chronic hypoxic and hypercapnic respiratory failure secondary to acute exacerbation of COPD as well as possible pickwickian syndrome, and possibility of aspiration pneumonia. Patient required intubation and mechanical support on June 18, and successfully weaned and extubated on 06/19/2021. Currently tolerating extubation well currently on 5 L of oxygen, clinically improving. No. They indication for pneumonia. There are some atelectatic changes and effusion the lung bases bilaterally. Is on bronchodilators and she is also on prednisone burst taper currently on 40 mg of prednisone a daily basis #2. Underlying history of obstructive sleep apnea noncompliant with CPAP #3. Chronic cor pulmonale and pulmonary hypertension #4. Previous history of heavy tobacco use #5. History of type 2 diabetes mellitus #6. Hyperlipidemia #7. Hypertension #8. History of hypothyroidism Plan: Patient has completed antibiotics Last chest x-ray from 06/22/2021 showed findings consistent with CHF Put the patient on Lasix 20 mg IV every 12 hours Continue the prednisone burst taper Accurate intake and output, daily weights Wean FiO2 to maintain O2 saturations at 88% and above
[2021-06-26 16:44] LABS: Glucose,Whole Blood 209 mg/dL (75-99)
[2021-06-26 20:54] LABS: Glucose,Whole Blood 170 mg/dL (75-99)
[2021-06-26] MEDS: FUROSEMIDE 10 MG/ML 4 ML VIAL IV SCH (21:58)
[2021-06-27] MEDS: LEVOTHYROXINE 75 MCG TAB PO SCH (06:08)
[2021-06-27 06:56] LABS: Glucose,Whole Blood 112 mg/dL (75-99)
[2021-06-27] MEDS: INSULIN ASPART (NovoLOG) 100 UNIT/ML VIAL SQ SCH ×2 (08:16→11:51)
[2021-06-27] MEDS: SYMBICORT 160-4.5 MCG INHALER INHALATION SCH (08:20)
[2021-06-27] MEDS: IPRATROPIUM-ALBUTEROL 3 ML NEB INHALATION SCH ×3 (08:20→16:12)
[2021-06-27] MEDS: FUROSEMIDE 10 MG/ML 4 ML VIAL IV SCH (08:26)
[2021-06-27] MEDS: ATORVASTATIN 20 MG TAB PO SCH (08:27)
[2021-06-27] MEDS: ENOXAPARIN 40 MG/0.4 ML SYRINGE SQ SCH (08:27)
[2021-06-27] MEDS: valACYclovir HCL 1,000 MG TABLET PO SCH (08:27)
[2021-06-27] MEDS: GABAPENTIN 100 MG CAP PO SCH (08:27)
[2021-06-27] MEDS: predniSONE 20 MG TAB PO SCH (08:27)
[2021-06-27] MEDS: cloNIDine HCL 0.1 MG TAB PO SCH (08:34)
[2021-06-27] MEDS: PANTOPRAZOLE 40 MG/10 ML VIAL IV SCH (08:34)
[2021-06-27 11:32] LABS: Glucose,Whole Blood 177 mg/dL (75-99)
--- NOTE | 2021-06-27 12:40 | P.PN ---
Subjective Progress Note Date: 06/27/21 81-year-old here patient being seen in follow-up. The patient was in the intensive care unit few days back for respiratory failure secondary to COPD exacerbation and respiratory failure. She do not to be COVID 19 negative. The patient is currently on oxygen and she has home O2 at 4.5 L . She is c urrently on 4 l nasal cannula. Chest x-ray was showing some bibasilar pulmonary infiltrates right more than left. She is doing well for now. She is on a combination of bronchodilators and she is also on oral Lasix and she was taken off the IV Solu-Medrol and started on a prednisone burst taper starting with 40 mg by mouth daily. Her Lasix and currently is at 20 mg by mouth on a daily basis. She is also on Lovenox for DVT prophylaxis 40 mg subcu on a daily basis. Her home medications have been ordered resume. Her white cell count is at 9.3 with hemoglobin of 10.6, rest of the blood work shows a chronic metabolic alkalosis with a bicarb level of 33, glucose is 149, proBNP is 420, cultures of been all negative with exception of a sputum sample that showed Susanne albicans. 06/27/2021, seeing the patient for a follow-up. She case of COPD with obesity hypoventilation syndrome and she is on oxygen at 4-1/2 L at home on outpatient basis. She is. Clinically the patient is feeling better. She is less bronchospastic and wheezy. She was taken off the IV Solu Medrol and she was started on a prednisone burst taper. She was kept on Lasix 40 mg IV every 12 hours and the patient is producing adequate amount of urine output. She has been negative fluid balance. She continues to have some edema in lower extremities bilaterally.. No new complaints for now. She is making good urine output. Overnight she use her BiPAP at a pressure of 12/6 cm of water and FiO2 of 40%. No angina. No palpitation.a no hypercapnia. No signs of any CO2 narcosis. Objective - Vital Signs Vital signs: Vital Signs Temp 98 F 06/27/21 07:55 Pulse 63 06/27/21 08:36 Resp 16 06/27/21 08:20 BP 120/54 06/27/21 07:55 Pulse Ox 94 L 06/27/21 08:22 Intake & Output 06/26/21 06/27/21 06/27/21 18:59 06:59 18:59 Intake Total 236 Balance 236 Weight 108.5 kg Intake: Oral 236 Other: Voiding Method Toilet Toilet Toilet ABP, PAP, CO, CI - Last Documented Arterial Blood Pressure 167/66 - Exam GENERAL EXAM: Alert, active, comfortable in no apparent distress. HEAD: Normocephalic/atraumatic. EYES: Normal reaction of pupils, equal size. Conjunctiva pink, sclera white. NOSE: Clear with pink turbinates. THROAT: No erythema or exudates. NECK: No masses, no JVD, no thyroid enlargement, no adenopathy. CHEST: No chest wall deformity. Symmetrical expansion. LUNGS: Equal air entry with mild crackles CVS: Regular rate and rhythm, normal S1 and S2, no gallops, no murmurs, no rubs ABDOMEN: Soft, nontender. No hepatosplenomegaly, normal bowel sounds, no guarding or rigidity. EXTREMITIES: No clubbing, no edema, no cyanosis, 2+ pulses and upper and lower extremities. MUSCULOSKELETAL: Muscle strength and tone normal. SPINE: No scoliosis or deformity SKIN: No rashes CENTRAL NERVOUS SYSTEM: Alert and oriented -3. No focal deficits, tone is normal in all 4 extremities. PSYCHIATRIC: Alert and oriented -3. Appropriate affect. Intact judgment and insight. - Labs CBC & Chem 7: 06/26/21 06:12 06/26/21 06:12 Labs: Abnormal Lab Results - Last 24 Hours (Table) 06/26/21 06/26/21 06/27/21 Range/Units 16:43 20:51 06:55 POC Glucose (mg/dL) 209 H 170 H 112 H (75-99) mg/dL 06/27/21 Range/Units 11:30 POC Glucose (mg/dL) 177 H (75-99) mg/dL Assessment and Plan Plan: #1. Acute on chronic hypoxic and hypercapnic respiratory failure secondary to acute exacerbation of COPD as well as possible pickwickian syndrome, and possibility of aspiration pneumonia. Patient required intubation and mechanical support on June 18, and successfully weaned and extubated on 06/19/2021. Currently tolerating extubation well currently on 5 L of oxygen, clinically improving. No. They indication for pneumonia. There are some atelectatic changes and effusion the lung bases bilaterally. Is on bronchodilators and she is also on prednisone burst taper currently on 40 mg of prednisone a daily basis, and the patient is also being diuresis with IV Lasix 20 mg every 12 hours. She has good urine output. Electrodes are being monitored. Oxidation is stable at 4 L and overnight the patient continues to use her BiPAP. #2. Underlying history of obstructive sleep apnea noncompliant with CPAP #3. Chronic cor pulmonale and pulmonary hypertension #4. Previous history of heavy tobacco use #5. History of type 2 diabetes mellitus #6. Hyperlipidemia #7. Hypertension #8. History of hypothyroidism Plan: Continue IV Lasix Last chest x-ray from 06/22/2021 showed findings consistent with CHF Monitor the lower extremity edema and monitor electrolytes Continue the prednisone burst taper Accurate intake and output, daily weights Wean FiO2 to maintain O2 saturations at 88% and above
[2021-06-27 14:03] VITALS: BP 157/74; TEMP 98.1
--- NOTE | 2021-06-27 14:44 | P.DS ---
Providers Date of admission: 06/18/21 10:14 Attending physician: Pranav Almanzar MD Consults: 06/18/21 10:14 Consult Physician Stat Consulting Provider: Gregoria Palmer Consult Reason/Comments: Vent dependent respiratory failure, COPD Do you want consulting provider notified?: Already Contacted Primary care physician: Yanely Andrade Hospital Course: Final Diagnosis Chronic obstructive pulmonary disease, acute exacerbation with acute hypoxic hypercarbic respiratory failure, extubated on 06/19 - currently on 4.5 L NC which is home dose Shingles Possible aspiration pneumonia, procalcitonin WNL at 0.08 not suggestive bacterial pneumonia History of obstructive sleep apnea, noncompliant with CPAP Pulmonary hypertension, chronic Acute respiratory alkalosis Diabetes mellitus type 2 with hyperglycemia Hypertension Hyponatremia, hypovolemic Anemia, macrocytic, requires further workup Hypothyroidism FULL CODE Discharge Disposition This is a pleasant 81-year-old female who was cleared medically for discharge to rehab today. She will complete an oral steroid taper and discharge on oral diuretics. Patient was also started on oral valtrex 1000 mg BID for 5 more days for shingles related blisters (2 small blisters and small area of scabbing) on her right lumbar back just above the buttock. Hospital course This is a pleasant 81-year-old female who does live home alone. She presented to the hospital after a transfer from [place] were she was intubated there due to acute hypoxic hypercarbic respiratory failure. Patient was in the intensive care unit for respiratory failure secondary to COPD exacerbation. She was extubated on 06/19/2021. She is currently in 4.5 L cannula which is her home dose. Patient has a history of obstructive sleep apnea, currently she does not have a CPAP machine as hers was recalled and she did not fall asleep during her repeat sleep study. Would recommend further studies outpatient. Patient does wear oxygen 24/7. Additional past medical history includes COPD, diabetes mellitus type 2, hyperlipidemia, hypertension, hypothyroidism, she is a former smoker. Patient also has a previous history of shingles. Most recent chest x- ray shows basilar right greater than left patchy mild interstitial PACs without significant change compared to prior. His small right pleural effusion without significant change. There is no left pleural effusion there is no pneumothorax. Cardiac silhouette difficult to evaluate due to lower lobe opacities though appears stable. There is no acute osseous abnormality. Patient was evaluated closely this admission from intensive care/pulmonary services. She was treated with IV steroids, transition to a short steroid burst and will discharge on an oral steroid taper. She was treated with IV Lasix 40 mg every 12 hours, we did transition her to oral Lasix for discharge. He did increase her home dose of lasix from 20 mg po daily to 40 mg po daily. Labs his admission show a hemoglobin 11, white count 7.6, sodium 136, potassium 4.3, CO2 36, chloride 96, B1 through 7, creatinine 1.03, glucose has been in the 170s. Covid PCR is not detected. Urinalysis was positive for 1+ protein. Continue all home medications on discharge. 06/27/2021 Patient evaluated today resting in bed. She is cleared medically for discharge to rehab. She is cleared by pulmonary services and will need to follow up with him in the office in 1-2 weeks. We will recheck a metabolic panel in 3 days. Patient is on her home dose of 4.5 L nasal cannula vital signs today show temperature 98.1, heart rate 63 sinus rhythm, pressure 157/74 and she is 94% oxygenation. Lungs are clear to auscultation, focal neurological exam is within normal limits, abdomen soft nontender. Patient denies any chest pain, chest pressure, palpitations, cough or shortness of breath. She denies any nausea vomiting or diarrhea. Patient feels ready for discharge today. Patient Condition at Discharge: Serious Plan - Discharge Summary Discharge Rx Participant: No New Discharge Prescriptions: New Ipratropium-Albuterol Nebulize [Duoneb 0.5 mg-3 mg/3 ml Soln] 3 ml INHALATION RT-QID ml Ipratropium-Albuterol Nebulize [Duoneb 0.5 mg-3 mg/3 ml Soln] 3 ml INHALATION RT-Q4H PRN ml PRN Reason: Shortness Of Breath Or Wheezing INSULIN ASPART (NovoLOG) [NovoLOG (formulary)] 0 unit SQ ACHS ml Budesonide-Formot 160-4.5 Mcg [Symbicort 160-4.5 Mcg Inhaler] 2 puff INHALATION RT-BID gm methylPREDNISolone Dose Pack [Medrol Dose Pack] 4 mg PO DIRECTED #21 tab valACYclovir HCL [Valtrex] 1,000 mg PO BID tablet Continue Simvastatin [Zocor] 40 mg PO DAILY cloNIDine HCL [Catapres] 0.1 mg PO BID Potassium Chloride [Potassium Chloride ER] 10 meq PO DAILY lisinopriL 40 mg PO DAILY Levothyroxine Sodium [Synthroid] 150 mcg PO DAILY amLODIPine [Norvasc] 2.5 mg PO DAILY Changed Furosemide [Lasix] 40 mg PO DAILY #60 Discharge Medication List Levothyroxine Sodium [Synthroid] 150 mcg PO DAILY 06/18/21 [History] Potassium Chloride [Potassium Chloride ER] 10 meq PO DAILY 06/18/21 [History] Simvastatin [Zocor] 40 mg PO DAILY 06/18/21 [History] amLODIPine [Norvasc] 2.5 mg PO DAILY 06/18/21 [History] cloNIDine HCL [Catapres] 0.1 mg PO BID 06/18/21 [History] lisinopriL 40 mg PO DAILY 06/18/21 [History] Budesonide-Formot 160-4.5 Mcg [Symbicort 160-4.5 Mcg Inhaler] 2 puff INHALATION RT-BID gm 06/27/21 [Rx] Furosemide [Lasix] 40 mg PO DAILY #60 06/27/21 [Rx] INSULIN ASPART (NovoLOG) [NovoLOG (formulary)] 0 unit SQ ACHS ml 06/27/21 [Rx] Ipratropium-Albuterol Nebulize [Duoneb 0.5 mg-3 mg/3 ml Soln] 3 ml INHALATION RT-Q4H PRN ml 06/27/21 [Rx] Ipratropium-Albuterol Nebulize [Duoneb 0.5 mg-3 mg/3 ml Soln] 3 ml INHALATION RT-QID ml 06/27/21 [Rx] methylPREDNISolone Dose Pack [Medrol Dose Pack] 4 mg PO DIRECTED #21 tab 06/27/21 [Rx] valACYclovir HCL [Valtrex] 1,000 mg PO BID tablet 06/27/21 [Rx] Follow up Appointment(s)/Referral(s): Yanely Andrade PAC [Primary Care Provider] - 1-2 days Tierra Harmon MD [STAFF PHYSICIAN] - 1 Week Ambulatory/Diagnostic Orders: Basic Metabolic Panel [LAB.AMB] Time Frame: 3 Days, Location: None Selected Activity/Diet/Wound Care/Special Instructions: [facility] [phone] is home care agency referred. They should contact you in 24-48hours for first visit. Discharge Disposition: TRANSFER TO SNF/ECF
[2021-06-27 16:20] VITALS: PULSE 62; RESP 16
--- NOTE | 2021-06-30 07:46 | CDI ---
Documentation Clarification Form Date: 06/30/2021 07:22:30 AM From: María Odonnell CCS, CCDS Admit Date: 06/18/2021 10:14:00 AM Patient Name: Alma Torres Visit Number: [id number] Discharge Date: 06/27/2021 04:15:00 PM ATTENTION: The Clinical Documentation Specialists (CDI) and [facility] Coding Staff appreciate your assistance in clarifying documentation. Please respond to the clarification below the line at the bottom and electronically sign. The CDI & [facility] Coding staff will review the response and follow-up if needed. Please note: Queries are made part of the Legal Health Record. If you have any questions, please contact the author of this message via ITS. Dr. Micah Wilkinson: Sepsis is documented in the 06/18 History & Physical: Acute bilateral pneumonia with possible sepsis, present on admission, possibly Gram-negative. Elevated lactic acid possible secondary to Sepsis. Sepsis is also documented in the 06/19 & 06/20 Attending Progress Notes. Additional clarification regarding the etiology/cause of the clinical indicators is requested. History/Risk Factors per the 06/18 H/P: COPD, Diabetes Mellitus II, Hyperlipidemia, Hypertension, Sleep Apnea, Hypothyroidism, Morbid Obesity w/BMI 36.5, Macrocytic possible Nutritional Anemia, Former smoker, Home O2 4.5L 18/02. Clinical Indicators: Presented from [place] [facility] via EMS with SOB & Hypoxia. At [place] the patient was trialed on supplemental O2, then BiPAP, failed & required mechanical ventilation. Admit with Acute Exacerbation of COPD & Respiratory Failure. 06/18 VS: 99.1- 100; P 62 - 56; R 16 - 10; BP 132/62 - 90/62 - 122/58; PO 100/vent - 98/vent; BMI: 36.4 06/18 LAB: WBC 9.8, Neutrophils 8.1, Lymphocytes 0.8; Chloride 91, CO2 42, BUN 19, Glucose 113, Lactic Acid 2.2 - 1.6;; Calcium 7.8, Total protein 5.6, Albumin 2.9 06/18 Blood Gas: pH 7.55, pCO2 61, HCO3 54, Total CO2 56, O2 Sat 99.7 06/18 Blood Culture x2: 1 positive Micrococcus species. 06/18 Urine Culture: Negative 06/18 Sputum Culture: Susanne albicans 06/18 CXR: ET Tube, May be pneumonia, Mild cardiomegaly. Treatment 06/18: ICU on ventilation, IV Propofol, INH Duoneb QID, IV Morphine q2Hr prn, Lovenox sq Daily, I Solumedrom 60 mg q6H, INH Pulmicort BID, INH Perforomist BID 06/19: po Lasix 20 mg aily, IV Cleviipine q24H, IV Vancomycin x1. 06/20: IV Vancomycin q24H In your professional opinion, please clarify if these findings signify one of the following conditions: [ ] Sepsis POA, please identify the organism if known: [ ] Sepsis, Not POA, please identify the organism if known: [ ] Severe Sepsis with organ failure, POA, please identify the organism if known: [ ] Severe Sepsis with organ failure, Not POA, please identify the organism if known: [ ] Sepsis Ruled Out [ ] Other, please specify [ ] Unable to determine (Template Last Reviewed: August 2020) No pneumonia MTDD
--- NOTE | 2021-06-30 07:58 | CDI ---
Documentation Clarification Form Date: 06/30/2021 07:46:52 AM From: María Odonnell CCS, CCDS Admit Date: 06/18/2021 10:14:00 AM Patient Name: Alma Torres Visit Number: [id number] Discharge Date: 06/27/2021 04:15:00 PM ATTENTION: The Clinical Documentation Specialists (CDI) and [facility] Coding Staff appreciate your assistance in clarifying documentation. Please respond to the clarification below the line at the bottom and electronically sign. The CDI & [facility] Coding staff will review the response and follow-up if needed. Please note: Queries are made part of the Legal Health Record. If you have any questions, please contact the author of this message via ITS. Dr. Micah Wilkinson: CHF is documented in the 06/24 Attending and Pulmonary Physician Progress Notes, also documented in the 06/25 Attending PNs an the 06/25 & 06/26 Pulmonary PNs without further specificity. Additional information regarding the Type & Acuity of CHF is requested. History/Risk Factors per the 06/18 H/P: COPD, Diabetes Mellitus II, Hyperlipidemia, Hypertension, Sleep Apnea, Hypothyroidism, Morbid Obesity w/BMI 36.5, Macrocytic possible Nutritional Anemia, Former smoker, Home O2 4.5L 18/02. Clinical Indicators: Presented from [place] ED via EMS with SOB & Hypoxia. At [place] the patient was trialed on supplemental O2, then BiPAP, failed & required mechanical ventilation. Admit with Acute Exacerbation of COPD & Respiratory Failure. 06/18 VS: 99.1- 100; P 62 - 56; R 16 - 10; BP 132/62 - 90/62 - 122/58; PO 100/vent - 98/vent; BMI: 36.4 06/18 LAB: WBC 9.8, Neutrophils 8.1, Lymphocytes 0.8; Chloride 91, CO2 42, BUN 19, Glucose 113, Lactic Acid 2.2 - 1.6;; Calcium 7.8, Total protein 5.6, Albumin 2.9 06/19 BNP: 351. 06/22: 420 06/18 Blood Gas: pH 7.55, pCO2 61, HCO3 54, Total CO2 56, O2 Sat 99.7 06/18 Blood Culture x2: 1 positive Micrococcus species. 06/18 Urine Culture: Negative 06/18 Sputum Culture: Susanne albicans 06/18 CXR: ET Tube, May be pneumonia, Mild cardiomegaly. 06/19 CXR: Cardiomegaly, there may be basilar effusions, difficult to exclude pneumonia, pulmonary venous hypertension & interstitial edema. 06/22 CXR: Findings consistent with CHF exacerbation, cardiomegaly, bilateral pleural effusions and mil central vascular congestion now present. No current or historical ECHO. Treatment 06/18: ICU on ventilation, IV Propofol, INH Duoneb QID, IV Morphine q2Hr prn, Lovenox sq Daily, I Solumedrom 60 mg q6H, INH Pulmicort BID, INH Perforomist BID 06/19: po Lasix 20 mg aily, IV Cleviipine q24H, IV Vancomycin x1, Extubated to 4.5L nc - 40% BiPAP 06/20: IV Vancomycin q24H, 4.5Lnc O2 - 5Lnc O2 with intermittent BiPAP 06/24 & 06/26: IV Lasix 40 mg x1, 4-5Lnc O2 In your professional opinion, can you please clarify the Acuity and Type of CHF if known? [ ] Acute Systolic Heart Failure [ ] Chronic Systolic Heart Failure [ ] Acute on Chronic Systolic Heart Failure [ ] Acute Diastolic Heart Failure [ ] Chronic Diastolic Heart Failure [ ] Acute on Chronic Diastolic Heart Failure [ ] Acute Systolic & Diastolic Heart Failure [ ] Chronic Systolic & Diastolic Heart Failure [ ] Acute on Chronic Heart Failure Systolic & Diastolic Heart Failure [ ] Heart Failure Ruled Out [ ] Other, please specify [ ] Unable to determine (Template Last Revised: August 2020) No CHF MTDD
== END 2021-06-27 16:15 | DRG 208 ==
LOC: EC 09:48 → 2SICU 10:14 → 4SSUR 06-22 17:41
PROVIDERS: ADMIT Internal Medicine; ATTEND Internal Medicine
PROC: 5A1935Z Respiratory Ventilation, Less than 24 Consecutive Hours (ICD-10-PCS; principal; 2021-06-18)
PROC: 0BH17EZ Insertion of Endotracheal Airway into Trachea, Via Natural or Artificial Opening (ICD-10-PCS; principal; 2021-06-18)
PROC: 03HY32Z Insertion of Monitoring Device into Upper Artery, Percutaneous Approach (ICD-10-PCS; 2021-06-18)
DX: J44.1 Chronic obstructive pulmonary disease with (acute) exacerbation (principal); J96.22 Acute and chronic respiratory failure with hypercapnia; J96.21 Acute and chronic respiratory failure with hypoxia; E44.1 Mild protein-calorie malnutrition; E66.2 Morbid (severe) obesity with alveolar hypoventilation; E87.1 Hypo-osmolality and hyponatremia; E87.3 Alkalosis; E87.2 Acidosis; E03.9 Hypothyroidism, unspecified; Z20.822 Contact with and (suspected) exposure to COVID-19; I10 Essential (primary) hypertension; B02.9 Zoster without complications; D53.9 Nutritional anemia, unspecified; E11.65 Type 2 diabetes mellitus with hyperglycemia; E86.1 Hypovolemia; I27.81 Cor pulmonale (chronic); I27.29 Other secondary pulmonary hypertension; E78.5 Hyperlipidemia, unspecified; Z87.891 Personal history of nicotine dependence; Z91.19 Patient's noncompliance with other medical treatment and regimen; Z86.19 Personal history of other infectious and parasitic diseases; Z79.899 Other long term (current) drug therapy; Z79.890 Hormone replacement therapy; Z68.36 Body mass index [BMI] 36.0-36.9, adult
CPT/HCPCS: 36415; 36600; 71045; 71046; 80048; 80053; 81001; 82805; 83605; 83735; 83880; 84145; 85025; 85610; 85730; 87040; 87070; 87086; 87205; 87635; 93005; 94002; 94003; 94640; 94660; 94760; 99291

== ENCOUNTER 2023-12-24 14:05 | Outpatient (CLI) | payer MEDICARE ==
[2023-12-24 14:46] LABS: African American GFR (CKD) 60 (>60 ml/min/1.73 sqM); Blood Urea Nitrogen 27 mg/dL (7-17); Non-African American GFR(CKD) 52 (>60 ml/min/1.73 sqM)
--- NOTE | 2023-12-25 10:04 | CT ---
EXAMINATION TYPE: CT TAVR Planning DATE OF EXAM: 12/24/2023 HISTORY: 83-year-old female I 3 5.0, TAVR planning CT DLP: 2914.4 mGycm Automated Exposure Control for Dose Reduction was Utilized. CONTRAST: CT scan of the chest, abdomen and pelvis is performed with IV Contrast, patient injected with 125 mL of Isovue 370. COMPARISON: None TECHNIQUE: Helical imaging obtained through the neck, chest, abdomen and pelvis during arterial phas e dynamic administration of radiographic contrast intravenously. FINDINGS: See report from [facility] regarding preprocedural planning CHEST: Neck and Thyroid: No significant findings Lungs: Diffuse septal lines along with patchy and confluent groundglass airspace disease with an uppe r to mid lung predominance and focal consolidation or atelectasis at the bilateral lung bases. Central Airway: No significant findings Pleura: Small right and trace left pleural effusions. Pulmonary Arteries: Mildly enlarged main right and left pulmonary arteries measuring up to 2.7 cm sug gesting underlying pulmonary arterial hypertension. Heart and Pericardium: Prominent mitral annular and aortic valvular calcifications. LAD and RCA coron kory artery calcifications. Heart mildly enlarged without pericardial effusion. Lymph Nodes: No significant findings Mediastinum & Esophagus: No significant findings AV Calcification Severity: Moderate/Severe ABDOMEN/PELVIS: Please note arterial phase of the imaging limits detailed evaluation of the solid abdominal organs. Liver: No significant findings Spleen: No significant findings Kidneys: 1.4 cm cortical cyst lateral left kidney. No hydronephrosis on either side. Adrenal Glands: Indeterminate 1.8 cm left adrenal nodule, statistically representing an adrenal adeno ma. 6 month follow-up adrenal mass protocol CT can be performed. Pancreas: Incidental 2.3 cm duodenal diverticulum projecting into the pancreatic head region but othe rwise, no significant findings Gallbladder: Mildly hydropic measuring 4.6 cm wide but without any wall thickening or surrounding inf lammation. Likely due to fasting state. Bowel and Mesentery: No dilated small bowel, free fluid, or free air. Scattered mild to moderate stoo l. Stool distends the rectum up to 6.8 cm. Sigmoid diverticulosis. Redundant sigmoid colon. No saranya lonic inflammation. Lymph Nodes: No significant findings Urinary Bladder: No significant findings Pelvic Organs: Possible cystic change left ovary measuring up to 1.8 cm can be reassessed at a three- month follow-up pelvic ultrasound to further evaluate. Uterus and right ovary are visualized. No abno rmal fluid collection in the pelvis. Other: No significant findings Other Lines/Tubes/Devices/Hardware: None IMPRESSION: 1. Moderate to severe aortic valvular calcifications. Additional groundglass airspace disease, septal lines, mild cardiomegaly, pulmonary arterial hypertension, and small effusions. Correlate for CHF an d pulmonary edema. 2. 6 month follow-up adrenal mass protocol CT to further assess a 1.8 cm left adrenal nodule. Three-m [facility] follow-up pelvic ultrasound to evaluate for possible 1.8 cm cystic lesion of the left ovary. 3. Redundant sigmoid colon with sigmoid diverticulosis.
== END 2023-12-24 17:57 | disposition home or self-care (01) ==
LOC: RADCTMAIN 14:05
PROVIDERS: ATTEND Thoracic Surgery (Cardiothoracic Vascular Surgery)
DX: I35.0 Nonrheumatic aortic (valve) stenosis (principal); I27.21 Secondary pulmonary arterial hypertension; I51.7 Cardiomegaly; Q43.8 Other specified congenital malformations of intestine; I70.0 Atherosclerosis of aorta
CPT/HCPCS: 93005; 82565; 84520; 71275; 74174; Q9967

== ENCOUNTER → 2024-02-03 | Outpatient (CLI) | payer MEDICARE ==
[2024-02-03 14:55] LABS: Partial Thromboplastin Time 28.2 sec (22.0-30.0); Prothrombin Time 11.1 sec (10.0-12.5)
[2024-02-03 20:56] LABS: ALT 9 U/L (8-44); AST 17 U/L (13-35); Albumin 3.7 g/dL (3.8-4.9); Albumin/Globulin Ratio 1.37 Ratio (1.60-3.17); Alkaline Phosphatase 124 U/L (41-126); BUN/Creat Ratio 14.89 Ratio (12.00-20.00); Blood Urea Nitrogen 13.4 mg/dL (9.0-27.0); Calcium 8.8 mg/dL (8.7-10.3); Carbon Dioxide 31.3 mmol/L (21.6-31.8); Chloride 102 mmol/L (96-109); Globulin 2.7 g/dL (1.6-3.3); Glucose 126 mg/dL (70-110); HCT 31.8 % (37.2-46.3); HGB 9.2 g/dL (12.0-15.0); MCH 28.7 pg (27.0-32.0); MCHC 28.9 g/dL (32.0-37.0); MCV 99.1 FL (80.0-97.0); Mean Platelet Volume 9.9 FL (9.5-12.2); NRBC Per 100 WBC 0 X 10*3/uL (0.00-0.01); Platelet Count 306 X 10*3/uL (140-440); Potassium 3.9 mmol/L (3.5-5.5); RBC 3.21 X 10*6/uL (4.10-5.20); RDW 13.8 % (11.5-14.5); Sodium 145 mmol/L (135-145); Total Bilirubin <0.2 mg/dL (0.3-1.2); Total Protein 6.4 g/dL (6.2-8.2); WBC 10.21 X 10*3/uL (4.50-10.00)
== END | disposition home or self-care (01) ==
LOC: LABPAT 12:56
PROVIDERS: ATTEND Thoracic Surgery (Cardiothoracic Vascular Surgery)
DX: Z01.812 Encounter for preprocedural laboratory examination (principal); I35.0 Nonrheumatic aortic (valve) stenosis; Z79.899 Other long term (current) drug therapy; Z79.01 Long term (current) use of anticoagulants
CPT/HCPCS: 36415; 80053; 85027; 85610; 85730; 86850; 86900; 86901

== ENCOUNTER 2024-02-05 07:25 | Inpatient (IN) | payer MEDICARE ==
[~2024-02-05 07:25] MED LIST: CARDIOPLEGIC SOLN (K+ 16 MEQ/L 1,000 ML with SOD BICARB SYR 8.4% (1 MEQ/ML) 20 ML, LIDO... PERFUSION PRN; CLEVIDIPINE BUTYRATE 25 MG in EMPTY BAG 1 BAG IV PRN; INSULIN REGULAR 100 UNIT in SODIUM CHLORIDE 0.9% 100 ML IV PRN; NITROGLYCERIN-D5W PMX 25 MG/250 ML BTL IV PRN; PROTAMINE SULFATE 250 MG in EMPTY BAG 1 BAG IV PRN; SODIUM CHLORIDE 0.9% 500 ML 500 ML INTRAARTER PRN; TRANEXAMIC ACID 2,000 MG in SODIUM CHLORIDE 0.9% 80 ML IV PRN
[2024-02-05] MEDS: SODIUM CHLORIDE 0.9% 1,000 ML IV ONE (08:27)
[2024-02-05 08:32] LABS: Glucose,Whole Blood 147 mg/dL (70-110)
[2024-02-05] MEDS: ATORVASTATIN 10 MG TAB PO ONE (08:38)
[2024-02-05] MEDS: ASPIRIN 325 MG TAB PO ONE (08:38)
[2024-02-05] MEDS: CLOPIDOGREL 75 MG TAB PO ONE (08:38)
[2024-02-05] MEDS: METOPROLOL TARTRATE 25 MG TAB PO ONE (08:38)
[2024-02-05] MEDS ORDERED: HEPARIN SODIUM,PORCINE 10,000 UNIT/ML 1 ML VIAL ONE (10:19)
[2024-02-05] MEDS ORDERED: fentaNYL (PF) 50 MCG/ML 2 ML AMP ONE (10:19)
[2024-02-05] MEDS ORDERED: PROPOFOL 10 MG/ML 20 ML VIAL IV ONE (10:19)
[2024-02-05] MEDS ORDERED: LIDOCAINE 1% INJ 10MG/ML (20 ML MDV) ONE (10:19)
[2024-02-05] MEDS ORDERED: PROTAMINE SULFATE 10 MG/ML 5 ML VIAL ONE (10:19)
[2024-02-05] MEDS ORDERED: MIDAZOLAM 2 MG/2 ML VIAL ONE (10:19)
[2024-02-05] MEDS ORDERED: ROCURONIUM 10 MG/ML (5 ML VIAL) IV ONE (10:19)
[2024-02-05] MEDS ORDERED: SUCCINYLCHOLINE CHLORIDE 200 MG/10 ML VIAL IV ONE (10:19)
[2024-02-05] MEDS ORDERED: VERAPAMIL 2.5 MG/ML 2 ML AMP ONE (11:14)
[2024-02-05] MEDS ORDERED: NALOXONE 0.4 MG/ML 1 ML VIAL IV PRN (12:23)
[2024-02-05] MEDS: IOPAMIDOL-370 100ML BTL INJ ONE (12:31)
--- NOTE | 2024-02-05 12:33 | P.OP ---
Date of Procedure: 02/05/24 Preoperative Diagnosis: Symptomatic calcific tricuspid aortic stenosis Postoperative Diagnosis: Same Procedure(s) Performed: Percutaneous transfemoral transcatheter aortic valve replacement with 29 mm Medtronic evolute flex prosthesis via right transfemoral approach with sentinel cerebral protection Implants: 29 mm Medtronic evolute flex transcatheter valve Anesthesia: GETA Surgeon: Montana Christopher (Cardiovascular surgeon) Erp Engineer #1: Barron De La Fuente (collar setter overlock) Erp Engineer #2: Pawel Gutierrez (Physician mailing machine assistant) Estimated Blood Loss (ml): 20 IV fluids (ml): 800 Urine output (ml): 0 Pathology: none sent Condition: stable Disposition: ICU Indications for Procedure: 83-year-old female with end-stage lung disease and morbid obesity presents with worsening dyspnea over the last 3 months found to have severe calcific aortic stenosis. She was she was extreme risk for surgical aortic valve replacement and was evaluated in the high risk clinic. She was felt to be high risk for TAVR but nonetheless appropriate. She had a large mobile calcific mass on her right coronary cusp and so cerebral protection was planned. She because of her severe lung disease it was hoped to perform the procedure under sedation. Operative Findings: Following positioning on the [facility] table and administration of sedation, patient was extremely agitated and could not be controlled. Addition of more sedation served to drop her O2 sats significantly. It was decided to change to general anesthesia and intubated the patient. The aortic valve was extremely difficult to cross. Once across we did measure a very high transaortic gradient. The valve was implanted with levels of 4 on the right and 2 on the left. Following implant there was trivial aortic valvular insufficiency and the valve appeared well-expanded. Closure of the right femoral artery was successful with excellent runoff and no leak on completion angiogram. Description of Procedure: Patient was brought to the [facility] and placed supine on the table. She was appropriately positioned and IV sedation was administered. An prepping and draping the patient would not remain still and quickly became evident it was not going to be able to be possible to proceed with simply IV sedation. General anesthesia was induced and the patient was intubated. We reprepped and draped. Right subclavian vein was punctured and a temporary venous screw-in lead was placed into the apex of the right ventricle and secured to the skin with 2-0 silk sutures. Left femoral arterial access was obtained and a long 6 [place] sheath was placed up into the descending thoracic aorta. Right common femoral artery was punctured and a 6 [place] sheath was placed. 2 Perclose devices were then placed. An 8 [place] sheath was then placed. Right radial arterial access was obtained. 5 [place] sheath was placed. We now upsized the 8 [place] sheath in the right groin to a 14 [place] sheath over a stiff wire. The patient was systemically heparinized ACT's were maintained greater than 250. Oxford device had been prepped on the back table. It was advanced over a wire into the ascending aorta. The proximal basket was deployed in the innominate artery and the catheter was retroverted. Wire was easily threaded into the left carotid and advanced to the level of the [place] of [place]. The distal portion of the catheter was then advanced into the left carotid and the distal basket was expanded. Catheter was then pulled back. Wire was then pulled back into the proximal neck. Pigtail catheter was advanced through the left groin sheath into the noncoronary sinus of Valsalva. The aortic valve was crossed from the right side and a pigtail catheter positioned in the apex of the ventricle. Transvalvular gradients were measured. Lunderquist wire was placed in the apex of the ventricle. A 29 mm Medtronic evolute flex valve had been loaded on the back table and was brought up on the field. It was checked under fluoroscopy. We now performed a predilatation of the aortic valve with a 23 mm true balloon. This was performed under rapid ventricular pacing and proceeded uneventfully. The balloon was removed maintaining the Lunderquist wire in the apex of the ventricle. 14 [place] sheath was exchanged for the delivery system of the 29 TAVR valve and this was advanced through the iliofemoral system up through the aorta around the aortic arch and across the aortic valve. The valve was deployed under rapid ventricular pacing with deployment levels of 2 on the left and 4 on the right. Valve appeared to expand well. CHON demonstrated trivial paravalvular leak. Valve deployment system was removed and exchanged back for the 14 [place] sheath. The sentinel baskets were collapsed and the Oxford device removed. Heparin was reversed with protamine. The 14 [place] sheath was removed and the 2 Perclose devices deployed with excellent hemostasis. Completion angiogram was performed and demonstrated good flow with no evidence of leak. Right radial and left femoral sheaths were removed and good hemostasis obtained. Patient was transferred to ICU in stable condition intubated for extubation there.
[2024-02-05 12:44] LABS: Glucose,Whole Blood 163 mg/dL (70-110)
[2024-02-05] MEDS ORDERED: ACETAMINOPHEN TAB 325 MG TAB PO PRN (12:57)
[2024-02-05] MEDS ORDERED: ONDANSETRON 4 MG/2 ML VIAL IVP PRN (12:57)
[2024-02-05] MEDS ORDERED: CALCIUM GLUCONATE IN NACL 2 GM in SALINE 1 100ML.BAG IVPB PRN (12:57)
[2024-02-05] MEDS ORDERED: Potassium Replacement Protocol 1 EACH MISC MISCELLANE PRN (12:57)
[2024-02-05] MEDS ORDERED: Magnesium Replacement Protocol 1 EACH MISC MISCELLANE PRN (12:57)
[2024-02-05] MEDS: propofoL 100 ML IV ONE (13:01)
[2024-02-05] MEDS: SODIUM CHLORIDE 0.9% 1,000 ML IV SCH (13:04)
[2024-02-05] MEDS: CLEVIDIPINE BUTYRATE 25 MG in EMPTY BAG 1 BAG IV SCH (13:14)
[2024-02-05 13:22] LABS: ABG Base Excess 7.7 mmol/L; ABG HCO3 33 mmol/L (21-25); ABG Oxygen Saturation 99.9 % (94-97); ABG PCO2 50 mmHg (35-45); ABG PH 7.43 (7.35-7.45); ABG PO2 127 mmHg (83-108); ABG TCO2 35 mmol/L (19-24)
[2024-02-05 13:55] LABS: Appearance,Urine Clear (Clear); Bacteria,Urine Rare /hpf; Bilirubin,Urine Negative (Negative); Blood,Urine Negative (Negative); Color,Urine Colorless; Glucose,Urine (UA) Negative (Negative); Hyaline Casts,Urine 1 /lpf (0-2); Ketones,Urine 2+ (Negative); Leukocyte Esterase,Urine Trace (Negative); Mucus,Urine Rare /hpf; Nitrite,Urine Positive (Negative); PH, Urine 7.5 (5.0-8.0); Protein,Urine 1+ (Negative); RBC,Urine 1 /hpf (0-5); Specific Gravity,Urine 1.014 (1.001-1.035); Urobilinogen,Urine <2.0 mg/dL (<2.0); WBC,Urine 9 /hpf (0-5)
[2024-02-05 14:00] LABS: African American GFR (CKD) >90 (>60 ml/min/1.73 sqM); Anion Gap 3 mmol/L; Blood Urea Nitrogen 11 mg/dL (7-17); Calcium 8.3 mg/dL (8.4-10.2); Carbon Dioxide 35 mmol/L (22-30); Chloride 104 mmol/L (98-107); Glucose 151 mg/dL (74-99); Non-African American GFR(CKD) 81 (>60 ml/min/1.73 sqM); Potassium 3.6 mmol/L (3.5-5.1); Sodium 142 mmol/L (137-145)
[2024-02-05 14:33] LABS: Basophils % (A) 0 %; Eosinophils % (A) 0 %; HCT 30.1 % (34.0-46.0); HGB 8.9 gm/dL (11.4-16.0); Hypochromasia Marked; Lymphocytes # (A) 0.8 k/uL (1.0-4.8); Lymphocytes % (A) 7 %; MCH 29.1 pg (25.0-35.0); MCHC 29.5 g/dL (31.0-37.0); MCV 98.7 fL (80.0-100.0); Mean Platelet Volume 7.5; Monocytes # (A) 0.4 k/uL (0-1.0); Monocytes % (A) 4 %; Neutrophils # (A) 9.1 k/uL (1.3-7.7); Neutrophils % (A) 87 %; Platelet Count 271 k/uL (150-450); RBC 3.04 m/uL (3.80-5.40); RDW 13.7 % (11.5-15.5); WBC 10.5 k/uL (3.8-10.6)
--- NOTE | 2024-02-05 14:47 | P.ANPRN ---
Procedure Note - Anesthesia - Invasive Line Left Arterial Line Time Out Performed: Yes ([id number]) Date of Procedure: 02/05/24 Time of Procedure: 10:37 Location of Patient: CVL Preparation: Sterile Prep, Sterile Dressing Arterial Line Location: Radial (left) Ultrasound Used: No Purpose - Visualization and Identification of Vasculature: No Needle Guage: 20g Image Stored and Saved: No Narrative: Invasive line placement per sterile protocol utilized. lumen bled and flushed. secured and dressed.
--- NOTE | 2024-02-05 14:53 | P.ANPRN ---
Procedure Note - Anesthesia - CHON Intraop Pre Bypass CHON Intraop - Anesthesia Indication: tavr/aortic stenosis Date of Procedure: 02/05/24 Pre-operative Diagnosis: tavr aortic stenosis Post-operative Diagnosis: S/p Tavr Surgeon: Montana Christopher Ejection Fraction: Normal Regional Wall Motion Abnormalities: None Left Ventricle Hypertrophy: Yes (mild) R. Ventricle Function: Normal Anatomy: Trileaflet Aortic Stenosis: Severe (peak 73/mean 44) Aortic Regurgitation: Mild Other Findings: mobile mass 0.4cm x 0.5cm attached to the noncoronary cusp. Mitral Stenosis: Mild Mitral Regurgitation: Trace Tricuspid Regurgitation: Trace Pulmonic Stenosis: None Pulmonic Regurgitation: None R. Atrial Dilation: No R. Atrial PFO: No L. Atrial Dilation: No Aortic Dissection: No Aortic Calcification: None Plural Effusion: None
--- NOTE | 2024-02-05 14:54 | P.ANPRN ---
Procedure Note - Anesthesia - CHON Intraop Post Bypass CHON Intraop Post Bypass Procedure Performed: tavr Ejection Fraction: Normal Regional Wall Motion Abnormalities: None R. Ventricle Function: Normal Aortic Valve: prosthetic valve in place with minimal perivalvular leak/regurgitation. valve opens well . Mitral Valve: Unchanged Tricuspid: Unchanged Pulmonic: Unchanged Aortic Dissection: No
[2024-02-05] MEDS: IPRATROPIUM-ALBUTEROL 3 ML NEB INHALATION SCH (15:11)
--- NOTE | 2024-02-05 15:32 | P.OP ---
Description of Procedure: Transcatheter Aoritc Valve Replacement Operative report PROCEDURE PERFORMED: 1. Percutaneous Aortic Valve Implantation using a 29 mm Evolut-FX. 2. Transesophageal echocardiography (performed by anesthesia) 3. Ultrasound guided access and repair of right femoral artery access site by Perclose closure device. 4. Placement of temporary pacemaker wire. 5. Aortic root angiography 6. Pre TAVR balloon aortic valvuloplasty with a 23mm True balloon 7. Placement of [place] cerebral embolic protection device INDICATIONS: 1. 83 year-old with a history of severe symptomatic aortic valve stenosis. PERFORMING PHYSICIANS: 1. Barron De La Fuente, Interventional Cardiology 2. Montana Christopher MD, Cardiothoracic Surgeon. SEDATION: General anesthesia provided by anesthesia, see separate note APPROACH: Right femoral artery via percutaneous approach PROCEDURE DESCRIPTION: The patient was discussed at valve clinic with multidisciplinary approach with cardiothoracic surgeon as well as block sawyer and thought better treated with TAVR. Risks, benefits, and alternatives of the procedure had been explained to the patient who understood the risks and agreed to proceed. After consents were obtained, patient was brought to the transcatheter aortic valve implantation room in the cardiac filling station laborer and general anesthesia was provided by the anesthesiologist (see separate report). Initial attempted conscious sedation however patient could not sit still and therefore required full sedation and intubation. Once full body sterile prep was performed, right subclavian venous access was obtained and a temporary pacemaker was screwed in, performed by cardiothoracic surgery. Pacing threshholds were checked and deemed appropriate. Next the left femoral artery was accessed using a modified Seldinger technique, ultrasound guidance and micropuncture technique. A 6 Kh[place] Rabi sheath was placed in the left femoral artery. Next, a 6-Khmer pigtail catheter was advanced into the aorta and positioned in the aortic root, aortic root angiography was performed to determine optimal deployment angle. A 6Fr sheath was placed in the right radial artery using modified Seldinger technique. A [place] cerebral embolic protection device was advanced under flouro over a 0.014 Mailman wire and the 2 baskets were deployed in the innominate and the left caortid artery. The right femoral artery was accessed using modified Seldinger technique, micropuncture technique and under direct ultrasound guidance. Femoral angiogram was done showing access in the common femoral artery and a 6Fr sheath was placed. Next preclose technique was performed using 2 Perclose. Next a 0.035 Lunderquist wire was placed in the Aorta via a pigtail catheter. Over that the arteriotomy was serially dilated and a 14 Fr [place] sheath was placed. Next a 6F- AL1 catheter was advanced over a wire to the aortic root. A straight wire was advanced through the catheter and used to cross the severely stenotic valve. The AL1 was then exchanged for a 6Fr pigtail catheter and pressure measurements were obtained. The 0.035 Lunderquist wire was then positioned in the apex. Next pre balloon aortic valvuloplasty was performed with a 23mm True balloon. Next a 29 mm Evolut-FX was advanced. The valve was then positioned across the aortic valve and confirmed with aortic root angiography. The valve was then deployed in proper position using slow deployment and with rapid pacing in conjuncture with aortic root angiography and CHON. The delivery system was withdrawn back into the arch and an aortic root injection in conjunction with CHON demonstrated a satisfactory result. There was mild para valvular leak. There was no evidence of any other significant abnormalities. The preclose Perclose was then deployed in the right femoral artery and hemostasis was achieved. The pigtail was then advanced to the level of the iliac bifurcation via the left femoral access. Femoral angiogram was performed that showed no contrast leak. The left femoral angiogram demonstrated an arteriotomy in the common femoral artery and this was repaired using a 6F angioseal device with complete hemostasis. The temporary venous pacemaker was sutured in place. The [place] protection device was recovered and a TR band was placed on the right radial site with sheath pulled and hemostasis achieved. The patient was then transported to the ICU in hemodynamically stable condition, requiring no pressor support. COMPLICATIONS: None CONCLUSION: 1. Implantaion of 29 mm Evolut-FX transcatheter aortic valve via right femoral approach under CHON and fluoro guidance with [no] silver-valvular aortic regurgitation. 2. Placement of temporary pacemaker wire 3. Aortic Root Aortogram. RECOMMENDATIONS: The patient will be monitored in the ICU for hemodynamic and electrical stability.
--- NOTE | 2024-02-05 15:46 | XR ---
EXAMINATION TYPE: XR chest 1V portable DATE OF EXAM: 02/05/2024 Comparison: 12/16/2023 Clinical History: 83-year-old female Post Operative Cardiac Surgery Findings: Placement of endovascular aortic valve replacement. Tip located 3.7 cm from the jany. NG tube cours es below the diaphragm. Heart mildly enlarged. Patchy airspace opacity throughout the right lung and dense retrocardiac opacity. Small bilateral pleural effusions. Impression: 1. Satisfactory ET and NG tubes. 2. Multifocal patchy airspace disease, right greater than left. Correlate for atypical patchy pulmona ry edema. 3. Small bilateral pleural effusions with adjacent atelectasis and/or consolidation. 4. Endovascular aortic valve replacement.
[2024-02-05] MEDS: POTASSIUM CHLORIDE 10 MEQ in WATER FOR INJECTION 1 100ML.BAG IVPB SCH (15:54)
--- NOTE | 2024-02-05 16:19 | P.CNPUL ---
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 She had been having significant and progressive dyspnea on exertion. She was seen and evaluated in the valve clinic and was found to have severe aortic valve stenosis. She was brought in today electively for a TAVR procedure. She did receive a 29 mm Medtronic evolute flex prosthesis via right transfemoral approach. During the initiation of the procedure the patient was moving around quite a bit and could not tolerate enough IV sedation and she was subsequently intubated during the procedure. She remained intubated following the procedure and was transferred to the intensive care unit. She is currently in assist-control mode at a rate of 20, tidal volume 400, FiO2 of 35% and a PEEP of 5. Initial blood gases on 50% FiO2 revealed a PaO2 of 127, pCO2 of 50 and a pH of 7.43. She is can currently sedated on propofol at 40 mcg/kg/min. She is also on Cleviprex at 1.5 mg/h. Pacemaker with backup pacing at 50. Chest x-ray reveals satisfactory endotracheal and nasogastric tubes in place. There is multifocal patchy airspace disease, right greater than left. Possible pulmonary edema. Small bilateral pleural effusions with adjacent atelectasis. Noted endovascular aortic valve replacement. White count 10.5. Hemoglobin 8.9. Platelets 271. Sodium 142. Potassium 3.6. Bicarb 35. BUN 11. Creatinine 0.66. Glucose 151. Review of Systems ROS unobtainable: due to endotracheal tube Past Medical History Past Medical History: Heart Failure, COPD, Diabetes Mellitus, GI Bleed, Hyperlipidemia, Hypertension, Sleep Apnea/CPAP/BIPAP, Thyroid Disorder Additional Past Medical History / Comment(s): Aortic Stenosis,blood sugar is good but goes up when on steroids,no cpap,GI bleed 2021 History of Any Multi-Drug Resistant Organisms: None Reported Past Surgical History: Heart Catheterization, Orthopedic Surgery, Tubal Ligation Additional Past Surgical History / Comment(s): repair to right knee, cataracts bilateral eyes Past Anesthesia/Blood Transfusion Reactions: No Reported Reaction Additional Past Anesthesia/Blood Transfusion Reaction / Comment(s): no problems with prior blood transfusions Smoking Status: Former smoker - Past Family History Mother Family Medical History: Myocardial Infarction ([place]) Father Family Medical History: Myocardial Infarction ([place]) Medications and Allergies Home Medications Medication Instructions Recorded Confirmed Type Levothyroxine Sodium [Synthroid] 150 mcg PO QAM 06/18/21 02/05/24 History Potassium Chloride [Potassium 10 meq PO DAILY 06/18/21 02/05/24 History Chloride ER] cloNIDine HCL [Catapres] 0.1 mg PO BID 06/18/21 02/05/24 History lisinopriL 40 mg PO QAM 06/18/21 02/05/24 History Furosemide [Lasix] 40 mg PO DAILY 12/15/23 02/05/24 History Rosuvastatin [Crestor] 10 mg PO HS 12/15/23 02/05/24 History Vit C/E/Zn/Coppr/Lutein/Zeaxan 1 cap PO BID 12/15/23 02/05/24 History [Preservision Areds 2 Softgel] amLODIPine [Norvasc] 5 mg PO QAM 12/15/23 02/05/24 History Acetaminophen Tab [Tylenol] 650 mg PO Q6HR PRN tab 12/20/23 02/05/24 Rx Ipratropium-Albuterol Nebulize 3 ml INHALATION RT-QID PRN each 12/20/23 02/05/24 Rx [Duoneb 0.5 mg-3 mg/3 ml Soln] Aspirin 81 mg PO DAILY 01/31/24 02/05/24 History Allergies Allergy/AdvReac Type Severity Reaction Status Date / Time Sulfa (Sulfonamide Allergy Rash/Hives Verified 02/05/24 08:08 Antibiotics) Physical Exam Vitals: Vital Signs Temp Pulse Pulse Resp BP BP BP 02/05/24 15:19 56 L 20 02/05/24 15:11 62 20 02/05/24 15:08 02/05/24 14:00 57 L 20 147/58 02/05/24 13:45 57 L 20 147/58 02/05/24 13:30 64 20 147/58 02/05/24 13:25 02/05/24 13:15 55 L 20 147/58 02/05/24 13:00 53 L 20 02/05/24 12:45 60 20 02/05/24 12:40 60 20 02/05/24 12:28 02/05/24 08:25 98.4 F 110 H 18 155/69 145/68 Pulse Ox FiO2 02/05/24 15:19 02/05/24 15:11 02/05/24 15:08 36 02/05/24 14:00 98 02/05/24 13:45 96 02/05/24 13:30 99 02/05/24 13:25 36 02/05/24 13:15 100 36 02/05/24 13:00 100 02/05/24 12:45 100 50 02/05/24 12:40 100 100 02/05/24 12:28 100 02/05/24 08:25 97 Intake and Output 02/05/24 02/05/24 02/05/24 06:59 14:59 22:59 Intake Total 1184.470 43.212 Output Total 260 Balance 924.470 43.212 Intake: IV 1156 0.9 100 pressure bag 6 Intake, IV Titration 28.470 43.212 Amount Clevidipine Butyrate 25 3.566 5.6 mg In Empty Bag 1 bag @ 1 MG/HR 2 mls/hr IV .Q24H [facility] Rx#:[id number] propofoL 1,000 mg In 24.904 37.612 Empty Bag 1 bag @ 20 MCG/ KG/MIN 11.172 mls/hr IV . Q8H58M [facility] Rx#:[id number] Output: Urine 260 Other: Weight 93.1 kg ABP, PAP, CO, CI - Last 8 Hours Arterial Blood Pressure 128/36 Arterial Blood Pressure 150/42 Arterial Blood Pressure 150/43 Arterial Blood Pressure 167/51 Arterial Blood Pressure 161/51 Arterial Blood Pressure 150/49 GENERAL EXAM: Intubated, sedated 83-year-old female, in no apparent distress. HEAD: Normocephalic. EYES: Normal reaction of pupils, equal size. NOSE: Clear with pink turbinates. THROAT: No erythema or exudates. NECK: No masses, no JVD. CHEST: No chest wall deformity. LUNGS: Equal air entry with no crackles, wheeze, rhonchi or dullness. CVS: S1 and S2 normal with no audible murmur, regular rhythm. ABDOMEN: No hepatosplenomegaly, normal bowel sounds, no guarding or rigidity. SPINE: No scoliosis or deformity SKIN: No rashes CENTRAL NERVOUS SYSTEM: No focal deficits, tone is normal in all 4 extremities. EXTREMITIES: Right groin site stable. There is no peripheral edema. No clubbing, no cyanosis. Peripheral pulses are intact. Results - Laboratory Findings CBC and BMP: 02/05/24 14:00 02/05/24 13:00 ABG ABG pH 7.43 (7.35-7.45) 02/05/24 13:19 ABG pCO2 50 mmHg (35-45) H 02/05/24 13:19 ABG pO2 127 mmHg (83-108) H 02/05/24 13:19 ABG O2 Saturation 99.9 % (94-97) H 02/05/24 13:19 Abnormal lab findings: Abnormal Labs 02/05/24 02/05/24 02/05/24 08:21 12:43 13:00 RBC Hgb Hct MCHC Neutrophils # Lymphocytes # ABG pCO2 ABG pO2 ABG HCO3 ABG Total CO2 ABG O2 Saturation Carbon Dioxide 35 H Glucose 151 H POC Glucose (mg/dL) 147 H 163 H Calcium 8.3 L Urine Protein Urine Ketones Urine Nitrite Ur Leukocyte Esterase Urine WBC Urine Bacteria Urine Mucus 02/05/24 02/05/24 02/05/24 13:00 13:19 14:00 RBC 3.04 L Hgb 8.9 L Hct 30.1 L MCHC 29.5 L Neutrophils # 9.1 H Lymphocytes # 0.8 L ABG pCO2 50 H ABG pO2 127 H ABG HCO3 33 H ABG Total CO2 35 H ABG O2 Saturation 99.9 H Carbon Dioxide Glucose POC Glucose (mg/dL) Calcium Urine Protein 1+ H Urine Ketones 2+ H Urine Nitrite Positive H Ur Leukocyte Esterase Trace H Urine WBC 9 H Urine Bacteria Rare H Urine Mucus Rare H Assessment and Plan Assessment: Symptomatic calcified tricuspid aortic stenosis. 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 Titrate the Cleviprex as tolerated Continue DuoNeb inhalations Heparin for DVT prophylaxis Continued on diuretics We will continue to follow and make further recommendations based on her clinical status I have personally seen and examined the patient, performed the documentation and the assessment and plan as written. Number of minutes spent on the visit: 20.
[2024-02-05] MEDS: ACETAMINOPHEN TAB 325 MG TAB PO PRN (17:23)
[2024-02-05 18:11] LABS: Glucose,Whole Blood 120 mg/dL (70-110)
[2024-02-05] MEDS: IPRATROPIUM-ALBUTEROL 3 ML NEB INHALATION PRN (20:01)
[2024-02-05] MEDS: VIT A,C & E-LUTEIN-MINERALS 1 EACH TAB PO SCH (20:19)
[2024-02-05] MEDS: SENNOSIDES-DOCUSATE SODIUM 1 EACH TAB PO SCH (20:19)
[2024-02-05] MEDS: CHLORHEXIDINE GLUCONATE 15 ML CUP MUCOUS MEM SCH (20:19)
[2024-02-05] MEDS: ATORVASTATIN 20 MG TAB PO SCH (20:19)
[2024-02-05] MEDS: cloNIDine HCL 0.1 MG TAB PO SCH (20:19)
[2024-02-06] MEDS: POTASSIUM BICARBONATE/CIT AC 20 MEQ TABLET.EFF NG-TUBE SCH ×2 (00:21→23:45)
[2024-02-06] MEDS: HEPARIN SODIUM,PORCINE 5,000 UNIT/ML 1 ML VIAL SQ SCH (00:21)
[2024-02-06] MEDS ORDERED: POTASSIUM BICARBONATE/CIT AC 20 MEQ TABLET.EFF NG-TUBE SCH (01:00)
[2024-02-06 01:10] LABS: Glucose,Whole Blood 96 mg/dL (70-110)
[2024-02-06 05:25] LABS: Ionized Calcium 4.8 mg/dL (4.5-5.3)
[2024-02-06 05:36] LABS: ALT 7 U/L (4-34); AST 19 U/L (14-36); African American GFR (CKD) >90 (>60 ml/min/1.73 sqM); Albumin 2.6 g/dL (3.5-5.0); Alkaline Phosphatase 95 U/L (38-126); Anion Gap 1 mmol/L; Blood Urea Nitrogen 11 mg/dL (7-17); Calcium 8.5 mg/dL (8.4-10.2); Carbon Dioxide 34 mmol/L (22-30); Chloride 106 mmol/L (98-107); Glucose 87 mg/dL (74-99); Magnesium 1.7 mg/dL (1.6-2.3); Non-African American GFR(CKD) 83 (>60 ml/min/1.73 sqM); Potassium 4.1 mmol/L (3.5-5.1); Sodium 141 mmol/L (137-145); Total Bilirubin 0.2 mg/dL (0.2-1.3)
[2024-02-06 05:45] LABS: ABG Base Excess 8.1 mmol/L; ABG HCO3 33 mmol/L (21-25); ABG Oxygen Saturation 99.2 % (94-97); ABG PCO2 45 mmHg (35-45); ABG PH 7.47 (7.35-7.45); ABG PO2 99 mmHg (83-108); ABG TCO2 34 mmol/L (19-24)
[2024-02-06] MEDS: LEVOTHYROXINE 75 MCG TAB PO SCH (06:31)
[2024-02-06] MEDS: PANTOPRAZOLE 40 MG TABLET PO SCH (06:31)
[2024-02-06 06:37] LABS: Basophils % (A) 0 %; Eosinophils # (A) 0.2 k/uL (0-0.7); Eosinophils % (A) 2 %; HCT 27.4 % (34.0-46.0); HGB 8.5 gm/dL (11.4-16.0); Hypochromasia Marked; Lymphocytes # (A) 1.3 k/uL (1.0-4.8); Lymphocytes % (A) 16 %; MCH 30.3 pg (25.0-35.0); MCV 97.7 fL (80.0-100.0); Mean Platelet Volume 8.2; Monocytes # (A) 0.6 k/uL (0-1.0); Monocytes % (A) 8 %; Neutrophils # (A) 5.9 k/uL (1.3-7.7); Neutrophils % (A) 72 %; Platelet Count 233 k/uL (150-450); RBC 2.81 m/uL (3.80-5.40); RDW 13.8 % (11.5-15.5); WBC 8.1 k/uL (3.8-10.6)
[2024-02-06 06:49] LABS: Glucose,Whole Blood 93 mg/dL (70-110)
[2024-02-06] MEDS: MAGNESIUM SULFATE-D5W PMX 1 GM in DEXTROSE/WATER 1 100ML.BAG IVPB ONE ×2 (07:27→23:44)
--- NOTE | 2024-02-06 08:13 | XR ---
EXAMINATION TYPE: XR chest 1V portable DATE OF EXAM: 02/06/2024 5:02 AM CLINICAL INDICATION:Female, 83 years old with history of Post Operative Cardiac Surgery; [facility] COMPARISON: Chest radiograph from one day prior. TECHNIQUE: XR chest 1V portable Frontal view of the chest. FINDINGS: Lungs/Pleura: There is no evidence of pleural effusion, focal consolidation, or pneumothorax. Pulmonary vascularity: Unremarkable. Heart/mediastinum: Cardiomediastinal silhouette is unremarkable. Post aortic valve repair changes. C ardiac conduction leads terminating over the right ventricle. Musculoskeletal: No acute osseous pathology. Other findings: None Lines/Tubes: Endotracheal tube with distal tip 3.0cm above the jany. Nasogastric tube with its distal tip and side-port projecting under the diaphragm. IMPRESSION: 1. Stable support tubes 2. Similar pulmonary edema.
[2024-02-06] MEDS: ASPIRIN 81 MG PO SCH (08:20)
[2024-02-06] MEDS: lisinopriL 20 MG TAB PO SCH (08:20)
[2024-02-06] MEDS: amLODIPine 5 MG TAB PO SCH (08:20)
[2024-02-06] MEDS: POTASSIUM CHLORIDE ER 10 MEQ TAB.ER.PRT PO SCH (08:20)
[2024-02-06] MEDS: FUROSEMIDE 40 MG TAB PO SCH (08:20)
[2024-02-06] MEDS ORDERED: bisacodyL 10 MG SUPP RECTAL PRN (09:00)
[2024-02-06] MEDS ORDERED: MAGNESIUM HYDROXIDE 2,400 MG/30 ML CUP PO PRN (09:00)
[2024-02-06] MEDS ORDERED: METOPROLOL TARTRATE 12.5 MG TAB PO SCH (09:00)
[2024-02-06] MEDS: LORazepam 2 MG/ML INJ IV STA (09:54)
--- NOTE | 2024-02-06 10:09 | XR ---
EXAMINATION TYPE: XR chest 1V DATE OF EXAM: 02/06/2024 9:55 AM CLINICAL INDICATION:Female, 83 years old with history of desat; [facility] COMPARISON: Chest radiographs from 02/06/2024 TECHNIQUE: XR chest 1V Frontal view of the chest. FINDINGS: Lungs/Pleura: There is flattening of the diaphragm with increased lucency of the lungs. No evidence o f pneumothorax, pleural effusion or focal consolidation. Pulmonary vascularity: Pulmonary vascular congestion. Heart/mediastinum: Cardiomediastinal silhouette is unremarkable. Conduction leads terminates over the right ventricle. Musculoskeletal: No acute osseous pathology. Other findings: None Lines/Tubes: Endotracheal tube with distal tip 4.3 cm above the jany. Nasogastric tube with its distal tip and side-port projecting under the diaphragm. IMPRESSION: Stable support tubes. Mild pulmonary vascular congestion suggested superimposed on COPD. No significa nt change from immediate prior.
[2024-02-06 10:28] LABS: ABG Base Excess 6.3 mmol/L; ABG HCO3 32 mmol/L (21-25); ABG Oxygen Saturation 94.3 % (94-97); ABG PCO2 50 mmHg (35-45); ABG PH 7.41 (7.35-7.45); ABG PO2 67 mmHg (83-108); ABG TCO2 33 mmol/L (19-24)
[2024-02-06 10:31] LABS: Allen Test Performed? no
[2024-02-06] MEDS: SODIUM CHLORIDE 0.9% 1,000 ML IV ONE (10:42)
[2024-02-06] MEDS ORDERED: IPRATROPIUM-ALBUTEROL 3 ML NEB INHALATION PRN (11:11)
[2024-02-06] MEDS: IPRATROPIUM-ALBUTEROL 3 ML NEB INHALATION SCH (11:20)
--- NOTE | 2024-02-06 12:09 | CA ---
Transthoracic Echo Report Name: Alma Torres Age: 83 Gender: F : 1940 Exam Date: 02/06/2024 08:25 Exam Location: [facility] Ht (in): 65 Wt (lb): 205 Ordering Physician: Tash Lima Attending/Referring Phys: [id number], Clarence [employer] Professor Rissa Mata RDCS Procedure CPT: Indications: post TAVR Cardiac Hx: Technical Quality: Fair Contrast 1: Total Dose (mL): Contrast 2: Total Dose (mL): MEASUREMENTS (Male / Female) Normal Values 2D ECHO LV Diastolic Diameter PLAX 3.8 cm 4.2 - 5.9 / 3.9 - 5.3 cm LV Systolic Diameter PLAX 2.6 cm IVS Diastolic Thickness 2.2 cm 0.6 - 1.0 / 0.6 - 0.9 cm LVPW Diastolic Thickness 1.6 cm 0.6 - 1.0 / 0.6 - 0.9 cm LV Relative Wall Thickness 1.0 LVOT Diameter 1.7 cm DOPPLER AV Peak Velocity 229.9 cm/s AV Peak Gradient 21.1 mmHg AV Mean Velocity 155.6 cm/s AV Mean Gradient 11.0 mmHg AV Velocity Time Integral 50.3 cm LVOT Peak Velocity 101.8 cm/s LVOT Peak Gradient 4.1 mmHg LVOT Velocity Time Integral 24.7 cm LVOT Stroke Volume 59.4 cm??? LVOT Stroke Volume Index 29.7 ml/m??? AV Area Cont Eq vti 1.2 cm??? AV Area Cont Eq pk 1.1 cm??? MV Area PHT 1.6 cm??? Mitral E Point Velocity 169.7 cm/s Mitral A Point Velocity 103.3 cm/s Mitral E to A Ratio 1.6 MV Deceleration Time 485.4 ms TR Peak Velocity 387.5 cm/s TR Peak Gradient 60.1 mmHg Right Atrial Pressure 5.0 mmHg Pulmonary Artery Systolic Pressu 65.1 mmHg Right Ventricular Systolic Press 65.1 mmHg FINDINGS Left Ventricle Severely increased left ventricular wall thickness. Left ventricular cavity size normal. Normal left ventricular systolic function with no obvious regional wall motion abnormalities. Left ventricular ejection fraction is estimated at 55%. Grade 1 diastolic dysfunction. Right Ventricle Right ventricle not well visualized. Severe pulmonary hypertension. Right ventricular systolic pressure estimated at 65mm hg. Right Atrium Normal right atrial size. Left Atrium Normal left atrial size. Mitral Valve Mitral valve thickened. Moderate mitral annular calcification. [id number] mitral regurgitation centrally directed mitral regurgitation jet. mild mitral stenosis. Aortic Valve Normally functioning bioprosthetic aortic valve without stenosis with a peak velocity of 230 m/s, peak gradient 21mmHg, mean gradient 11 mmHg, and estimated aortic valve area of 1.2 cm???. No paravalvular aortic regurgitation. No central aortic regurgitation. Tricuspid Valve Structurally normal tricuspid valve. Mild tricuspid regurgitation. Tricuspid regurgitation jet directed toward the septum. Pulmonic Valve Structurally normal pulmonic valve. Trace pulmonic regurgitation. Pericardium No pericardial effusion. Pleural effusion. Aorta Normal size aortic root and proximal ascending aorta. CONCLUSIONS Left ventricular ejection fraction 55% Severely increased left ventricular wall thickness RVSP 65 Mild to moderate mitral regurgitation Normally functioning bioprosthetic aortic valve without significant aortic stenosis No paravalvular leak No aortic regurgitation Mild tricuspid regurgitation No pericardial effusion, pleural effusion noted Previewed by: Dr. Barron De La Fuente DO (Electronically Signed) Final Date: 06 February 2024 12:08
[2024-02-06 12:13] LABS: Glucose,Whole Blood 148 mg/dL (70-110)
[2024-02-06] MEDS: NOREPINEPHRINE 4 MG in SODIUM CHLORIDE 0.9% 250 ML IV SCH (12:45)
[2024-02-06] MEDS: FUROSEMIDE 10 MG/ML 4 ML VIAL IV SCH (12:57)
--- NOTE | 2024-02-06 13:06 | P.PN ---
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 She had been having significant and progressive dyspnea on exertion. She was seen and evaluated in the valve clinic and was found to have severe aortic valve stenosis. She was brought in today electively for a TAVR procedure. She did receive a 29 mm Medtronic evolute flex prosthesis via right transfemoral approach. During the initiation of the pro cedure the patient was moving around quite a bit and could not tolerate enough IV sedation and she was subsequently intubated during the procedure. She remained intubated following the procedure and was transferred to the intensive care unit. She is currently in assist-control mode at a rate of 20, tidal volume 400, FiO2 of 35% and a PEEP of 5. Initial blood gases on 50% FiO2 revealed a PaO2 of 127, pCO2 of 50 and a pH of 7.43. She is can currently sedated on propofol at 40 mcg/kg/min. She is also on Cleviprex at 1.5 mg/h. Pacemaker with backup pacing at 50. Chest x-ray reveals satisfactory endotracheal and nasogastric tubes in place. There is multifocal patchy airspace disease, right greater than left. Possible pulmonary edema. Small bilateral pleural effusions with adjacent atelectasis. Noted endovascular aortic valve replacement. White count 10.5. Hemoglobin 8.9. Platelets 271. Sodium 142. Potassium 3.6. Bicarb 35. BUN 11. Creatinine 0.66. Glucose 151. Reevaluated today on 02/06/2024, patient remains in the ICU, intubated and mechanically ventilated. Her sedation was placed on hold earlier this morning, patient is on assist-control rate of 20 tidal volume 400 FiO2 35% and PEEP of 5. ABG showed a pO2 of 99 pCO2 45 pH of 7.47. Patient is requiring Cleviprex for high blood pressure at 5 mg/h, her IV fluid is running at 0.9 normal saline. Chest x-ray showed very minimal pulmonary congestion superimposed on COPD patient was transitioned briefly to a pressure support of 10 and CPAP, and she was doing well and the plan was to extubate if tolerated at least 20 minutes of pressure support and CPAP. However within 10 minutes patient short of developed increased shortness of breath, could not ventilate the patient had to disconnect from mechanical ventilation and Ambu bag the patient until her O2 saturation came back up. Patient was extremely restless, almost like panicked out. Hence decided that she is not ready for weaning or extubation, and repeated her chest x-ray there is no evidence of pneumothorax and there was no change. My plan is to place back on mechanical ventilation with assist mode, sedated the patient with propofol, and I plan to readdress this tomorrow morning possibly transition the patient to Precedex prior to weaning. And will try to shoot for maintaining her pCO2 up in the 60s and pH in the 7.35 range. This is likely her baseline before we proceed with weaning. Patient did not tolerate any weaning trial today. Objective - Vital Signs Vital signs: Vital Signs Temp 98.1 F 02/06/24 12:00 Pulse 69 02/06/24 12:00 Resp 16 02/06/24 12:00 BP 108/46 02/06/24 12:00 Pulse Ox 96 02/06/24 12:00 FiO2 35 02/06/24 12:00 Intake & Output 02/05/24 02/06/24 02/06/24 18:59 06:59 18:59 Intake Total 1768.556 053.238 1322.695 Output Total 470 470 935 Balance 1298.556 401.682 701.695 Weight 93.1 kg 97.3 kg Intake: IV 9611 034 5330 0.9 079 725 9125 Potassium Chloride 10 meq 200 In Water For Injection 1 100ml.bag @ 100 mls/hr IVPB Q1H [facility] Rx#: [id number] ceFAZolin 2 gm In Sodium 50 50 Chloride 0.9% 50 ml @ 100 mls/hr IVPB Q8HR [facility] Rx# :[id number] pressure bag 18 3 15 Intake, IV Titration 150.556 268.682 201.695 Amount Clevidipine Butyrate 25 17.983 16.534 35.500 mg In Empty Bag 1 bag @ 1 MG/HR 2 mls/hr IV .Q24H [facility] Rx#:[id number] Magnesium Sulfate-D5w Pmx 100 1 gm In Dextrose/Water 1 100ml.bag @ 100 mls/hr IVPB ONCE ONE Rx#: [id number] propofoL 1,000 mg In 132.573 252.148 66.195 Empty Bag 1 bag @ 20 MCG/ KG/MIN 11.172 mls/hr IV . Q8H58M [facility] Rx#:[id number] Output: Urine 470 470 935 Other: Voiding Method Indwelling Catheter Indwelling Catheter Indwelling Catheter ABP, PAP, CO, CI - Last Documented Arterial Blood Pressure 147/46 - Exam GENERAL EXAM: Intubated, sedation, awake, follows simple instructions for HEAD: Normocephalic. EYES: Normal reaction of pupils, equal size. NOSE: Clear with pink turbinates. THROAT: No erythema or exudates. NECK: No masses, no JVD. CHEST: No chest wall deformity. LUNGS: Diminished breath sound bilaterally no rhonchi no wheezes CVS: S1 and S2 normal with 2/6 systolic murmur throughout the precordium ABDOMEN: No hepatosplenomegaly, normal bowel sounds, no guarding or rigidity. SKIN: No rashes CENTRAL NERVOUS SYSTEM: Alert and oriented x 3, no gross focal deficit. EXTREMITIES: Right groin site stable. There is no peripheral edema. No clubbing, no cyanosis. Peripheral pulses are intact. - Labs CBC & Chem 7: 02/06/24 05:00 02/06/24 05:00 Labs: Abnormal Lab Results - Last 24 Hours (Table) 02/05/24 02/05/24 02/05/24 Range/Units 13:00 13:00 13:19 RBC (3.80-5.40) m/uL Hgb (11.4-16.0) gm/dL Hct (34.0-46.0) % MCHC (31.0-37.0) g/dL Neutrophils # (1.3-7.7) k/uL Lymphocytes # (1.0-4.8) k/uL ABG pH (7.35-7.45) ABG pCO2 50 H (35-45) mmHg ABG pO2 127 H (83-108) mmHg ABG HCO3 33 H (21-25) mmol/L ABG Total CO2 35 H (19-24) mmol/L ABG O2 Saturation 99.9 H (94-97) % Potassium (3.5-5.1) mmol/L Carbon Dioxide 35 H (22-30) mmol/L Glucose 151 H (74-99) mg/dL POC Glucose (mg/dL) (70-110) mg/dL Calcium 8.3 L (8.4-10.2) mg/dL Total Protein (6.3-8.2) g/dL Albumin (3.5-5.0) g/dL Urine Protein 1+ H (Negative) Urine Ketones 2+ H (Negative) Urine Nitrite Positive H (Negative) Ur Leukocyte Esterase Trace H (Negative) Urine WBC 9 H (0-5) /hpf Urine Bacteria Rare H (None) /hpf Urine Mucus Rare H (None) /hpf 02/05/24 02/05/24 02/05/24 Range/Units 14:00 18:09 23:29 RBC 3.04 L (3.80-5.40) m/uL Hgb 8.9 L (11.4-16.0) gm/dL Hct 30.1 L (34.0-46.0) % MCHC 29.5 L (31.0-37.0) g/dL Neutrophils # 9.1 H (1.3-7.7) k/uL Lymphocytes # 0.8 L (1.0-4.8) k/uL ABG pH (7.35-7.45) ABG pCO2 (35-45) mmHg ABG pO2 (83-108) mmHg ABG HCO3 (21-25) mmol/L ABG Total CO2 (19-24) mmol/L ABG O2 Saturation (94-97) % Potassium 3.4 L (3.5-5.1) mmol/L Carbon Dioxide (22-30) mmol/L Glucose (74-99) mg/dL POC Glucose (mg/dL) 120 H (70-110) mg/dL Calcium (8.4-10.2) mg/dL Total Protein (6.3-8.2) g/dL Albumin (3.5-5.0) g/dL Urine Protein (Negative) Urine Ketones (Negative) Urine Nitrite (Negative) Ur Leukocyte Esterase (Negative) Urine WBC (0-5) /hpf Urine Bacteria (None) /hpf Urine Mucus (None) /hpf 02/06/24 02/06/24 02/06/24 Range/Units 03:38 05:00 05:00 RBC 2.81 L (3.80-5.40) m/uL Hgb 8.5 L (11.4-16.0) gm/dL Hct 27.4 L (34.0-46.0) % MCHC (31.0-37.0) g/dL Neutrophils # (1.3-7.7) k/uL Lymphocytes # (1.0-4.8) k/uL ABG pH 7.47 H (7.35-7.45) ABG pCO2 (35-45) mmHg ABG pO2 (83-108) mmHg ABG HCO3 33 H (21-25) mmol/L ABG Total CO2 34 H (19-24) mmol/L ABG O2 Saturation 99.2 H (94-97) % Potassium (3.5-5.1) mmol/L Carbon Dioxide 34 H (22-30) mmol/L Glucose (74-99) mg/dL POC Glucose (mg/dL) (70-110) mg/dL Calcium (8.4-10.2) mg/dL Total Protein 5.0 L (6.3-8.2) g/dL Albumin 2.6 L (3.5-5.0) g/dL Urine Protein (Negative) Urine Ketones (Negative) Urine Nitrite (Negative) Ur Leukocyte Esterase (Negative) Urine WBC (0-5) /hpf Urine Bacteria (None) /hpf Urine Mucus (None) /hpf 02/06/24 02/06/24 Range/Units 10:27 12:12 RBC (3.80-5.40) m/uL Hgb (11.4-16.0) gm/dL Hct (34.0-46.0) % MCHC (31.0-37.0) g/dL Neutrophils # (1.3-7.7) k/uL Lymphocytes # (1.0-4.8) k/uL ABG pH (7.35-7.45) ABG pCO2 50 H (35-45) mmHg ABG pO2 67 L (83-108) mmHg ABG HCO3 32 H (21-25) mmol/L ABG Total CO2 33 H (19-24) mmol/L ABG O2 Saturation (94-97) % Potassium (3.5-5.1) mmol/L Carbon Dioxide (22-30) mmol/L Glucose (74-99) mg/dL POC Glucose (mg/dL) 148 H (70-110) mg/dL Calcium (8.4-10.2) mg/dL Total Protein (6.3-8.2) g/dL Albumin (3.5-5.0) g/dL Urine Protein (Negative) Urine Ketones (Negative) Urine Nitrite (Negative) Ur Leukocyte Esterase (Negative) Urine WBC (0-5) /hpf Urine Bacteria (None) /hpf Urine Mucus (None) /hpf Assessment and Plan Assessment: Impression: Severe aortic stenosis, status post transfemoral transcatheter aortic valve replacement. Acute hypoxic respiratory failure secondary to severe COPD exacerbation, patient required general anesthesia during her TAVR procedure, and she failed weaning today mostly because of her severe COPD. History of severe COPD/FEV1 of 26%. Ex-smoker Hypothyroidism Dyslipidemia Obstructive sleep apnea syndrome benign essential hypertension History of congestive heart failure History of gastric ulcer Recommendation: Considering the patient failed her weaning trial today will keep on mechanical ventilation, assist-control mode of mechanical ventilation, and will readdress weaning in the next 24 hours with Precedex on board. Continue bronchodilators Continue to titrate Cleviprex Continue GI DVT prophylaxis Continue diuretics Will continue to follow. Patient is critically ill. Critical care time is over 35 minutes Time with Patient: Greater than 30
--- NOTE | 2024-02-06 14:40 | P.PN ---
Subjective Progress Note Date: 02/06/24 Principal diagnosis: Severe symptomatic aortic valve stenosis. 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 at 4 L nasal cannula, obstructive sleep apnea with home CPAP use, hypothyroid, previous stomach ulcer with GI bleed, obesity, previous tobacco dependence POD #1 percutaneous aortic valve implantation using a 29 mm Evolut fracture, transesophageal echocardiography, ultrasound-guided access and repair of right femoral artery access site by Perclose closure device, placement of temporary pacemaker wire, aortic root angiography, pre-TAVR balloon aortic valvuloplasty with a 23 mm true balloon, placement of sentinel cerebral embolic protection device Acute hypoxic respiratory failure requiring prolonged mechanical ventilation The patient was seen and examined multiple times throughout the day laying in bed in the intensive care unit. Original plan was TAVR with conscious sedation, however patient was very restless without the ability to increase sedation so the decision was made to intubate her for her TAVR procedure. Post TAVR she was allowed to rest on mechanical ventilation overnight. This morning weaning trial was attempted, however patient became apneic and hypoxic, she was bagged for short time and then placed back on mechanical ventilation indicating she is not ready to be extubated yet. Not long afterwards patient became hypotensive despite having previously been hypertensive on IV Cleviprex. She was given fluid bolus as well as started on IV levo. Her blood pressure did rebound and she is currently again hypertensive. Echocardiogram completed this morning demonstrated normal left ventricular systolic function with EF 55%, grade 1 diastolic dysfunction, normally functioning bioprosthetic aortic valve with peak/mean gradient 21/11 mmHg, peak velocity 2.3 m/s, no AI and no paravalvular leak, no pericardial effusion present although there was a noted pleural effusion with dilated IVC. We decided to diurese her as she appeared to be volume overloaded. Will use pressors if patient becomes hypotensive again as opposed to fluid administration. Currently in sinus rhythm without episodes of bradycardia. Pacemaker wire discontinued. Family member updated at the bedside. Objective - Vital Signs Vital signs: Vital Signs Temp 98.1 F 02/06/24 12:00 Pulse 69 02/06/24 12:00 Resp 16 02/06/24 12:00 BP 108/46 02/06/24 12:00 Pulse Ox 96 02/06/24 12:00 FiO2 35 02/06/24 12:00 Intake & Output 02/05/24 02/06/24 02/06/24 18:59 06:59 18:59 Intake Total 1768.556 980.821 6171.695 Output Total 470 470 935 Balance 1298.556 401.682 701.695 Weight 93.1 kg 97.3 kg Intake: IV 0795 926 0174 0.9 001 603 2151 Potassium Chloride 10 meq 200 In Water For Injection 1 100ml.bag @ 100 mls/hr IVPB Q1H [facility] Rx#: [id number] ceFAZolin 2 gm In Sodium 50 50 Chloride 0.9% 50 ml @ 100 mls/hr IVPB Q8HR [facility] Rx# :[id number] pressure bag 18 3 15 Intake, IV Titration 150.556 268.682 201.695 Amount Clevidipine Butyrate 25 17.983 16.534 35.500 mg In Empty Bag 1 bag @ 1 MG/HR 2 mls/hr IV .Q24H [facility] Rx#:[id number] Magnesium Sulfate-D5w Pmx 100 1 gm In Dextrose/Water 1 100ml.bag @ 100 mls/hr IVPB ONCE ONE Rx#: [id number] propofoL 1,000 mg In 132.573 252.148 66.195 Empty Bag 1 bag @ 20 MCG/ KG/MIN 11.172 mls/hr IV . Q8H58M [facility] Rx#:[id number] Output: Urine 470 470 935 Other: Voiding Method Indwelling Catheter Indwelling Catheter Indwelling Catheter ABP, PAP, CO, CI - Last Documented Arterial Blood Pressure 147/46 - Exam CONSTITUTIONAL: Remains sedated on mechanical ventilation, no acute distress currently RESPIRATORY: Lungs sounds diminished in the bases bilaterally. Respirations even, nonlabored. Currently on assist-control mode, FiO2 35%, PEEP 5, tidal volume 400, respiratory rate 20. 7.5 ET tube present, 22 at the lip CARDIOVASCULAR: S1, S2 present. Regular rate and rhythm, sinus rhythm on telemetry. Palpable peripheral pulses bilaterally. Generalized edema present. No calf pain or tenderness noted. SCDs present. GASTROINTESTINAL: Abdomen soft, nontender, nondistended, obese. Active bowel sounds present 4 quadrants. OG tube present to low intermittent suction with minimal output GENITOURINARY: Kwan present draining clear, yellow urine. Output 935 mL in the last 24 hours INTEGUMENTARY: Skin is warm and dry. Bilateral groins soft, dry and intact MUSKULOSKELETAL: Sedated on mechanical ventilation but is moving her upper extremities INVASIVE LINES AND TUBES: Left radial arterial line present. Right subclavian screw-in temporary pacer wire was present this morning, recently discontinued - Allied health notes Allied health notes reviewed: nursing - Labs CBC & Chem 7: 02/06/24 05:00 02/06/24 05:00 Labs: Abnormal Lab Results - Last 24 Hours (Table) 02/05/24 02/05/24 02/05/24 Range/Units 13:00 13:00 14:00 RBC 3.04 L (3.80-5.40) m/uL Hgb 8.9 L (11.4-16.0) gm/dL Hct 30.1 L (34.0-46.0) % MCHC 29.5 L (31.0-37.0) g/dL Neutrophils # 9.1 H (1.3-7.7) k/uL Lymphocytes # 0.8 L (1.0-4.8) k/uL ABG pH (7.35-7.45) ABG pCO2 (35-45) mmHg ABG pO2 (83-108) mmHg ABG HCO3 (21-25) mmol/L ABG Total CO2 (19-24) mmol/L ABG O2 Saturation (94-97) % Potassium (3.5-5.1) mmol/L Carbon Dioxide 35 H (22-30) mmol/L Glucose 151 H (74-99) mg/dL POC Glucose (mg/dL) (70-110) mg/dL Calcium 8.3 L (8.4-10.2) mg/dL Total Protein (6.3-8.2) g/dL Albumin (3.5-5.0) g/dL Urine Protein 1+ H (Negative) Urine Ketones 2+ H (Negative) Urine Nitrite Positive H (Negative) Ur Leukocyte Esterase Trace H (Negative) Urine WBC 9 H (0-5) /hpf Urine Bacteria Rare H (None) /hpf Urine Mucus Rare H (None) /hpf 02/05/24 02/05/24 02/06/24 Range/Units 18:09 23:29 03:38 RBC (3.80-5.40) m/uL Hgb (11.4-16.0) gm/dL Hct (34.0-46.0) % MCHC (31.0-37.0) g/dL Neutrophils # (1.3-7.7) k/uL Lymphocytes # (1.0-4.8) k/uL ABG pH 7.47 H (7.35-7.45) ABG pCO2 (35-45) mmHg ABG pO2 (83-108) mmHg ABG HCO3 33 H (21-25) mmol/L ABG Total CO2 34 H (19-24) mmol/L ABG O2 Saturation 99.2 H (94-97) % Potassium 3.4 L (3.5-5.1) mmol/L Carbon Dioxide (22-30) mmol/L Glucose (74-99) mg/dL POC Glucose (mg/dL) 120 H (70-110) mg/dL Calcium (8.4-10.2) mg/dL Total Protein (6.3-8.2) g/dL Albumin (3.5-5.0) g/dL Urine Protein (Negative) Urine Ketones (Negative) Urine Nitrite (Negative) Ur Leukocyte Esterase (Negative) Urine WBC (0-5) /hpf Urine Bacteria (None) /hpf Urine Mucus (None) /hpf 02/06/24 02/06/24 02/06/24 Range/Units 05:00 05:00 10:27 RBC 2.81 L (3.80-5.40) m/uL Hgb 8.5 L (11.4-16.0) gm/dL Hct 27.4 L (34.0-46.0) % MCHC (31.0-37.0) g/dL Neutrophils # (1.3-7.7) k/uL Lymphocytes # (1.0-4.8) k/uL ABG pH (7.35-7.45) ABG pCO2 50 H (35-45) mmHg ABG pO2 67 L (83-108) mmHg ABG HCO3 32 H (21-25) mmol/L ABG Total CO2 33 H (19-24) mmol/L ABG O2 Saturation (94-97) % Potassium (3.5-5.1) mmol/L Carbon Dioxide 34 H (22-30) mmol/L Glucose (74-99) mg/dL POC Glucose (mg/dL) (70-110) mg/dL Calcium (8.4-10.2) mg/dL Total Protein 5.0 L (6.3-8.2) g/dL Albumin 2.6 L (3.5-5.0) g/dL Urine Protein (Negative) Urine Ketones (Negative) Urine Nitrite (Negative) Ur Leukocyte Esterase (Negative) Urine WBC (0-5) /hpf Urine Bacteria (None) /hpf Urine Mucus (None) /hpf 02/06/24 Range/Units 12:12 RBC (3.80-5.40) m/uL Hgb (11.4-16.0) gm/dL Hct (34.0-46.0) % MCHC (31.0-37.0) g/dL Neutrophils # (1.3-7.7) k/uL Lymphocytes # (1.0-4.8) k/uL ABG pH (7.35-7.45) ABG pCO2 (35-45) mmHg ABG pO2 (83-108) mmHg ABG HCO3 (21-25) mmol/L ABG Total CO2 (19-24) mmol/L ABG O2 Saturation (94-97) % Potassium (3.5-5.1) mmol/L Carbon Dioxide (22-30) mmol/L Glucose (74-99) mg/dL POC Glucose (mg/dL) 148 H (70-110) mg/dL Calcium (8.4-10.2) mg/dL Total Protein (6.3-8.2) g/dL Albumin (3.5-5.0) g/dL Urine Protein (Negative) Urine Ketones (Negative) Urine Nitrite (Negative) Ur Leukocyte Esterase (Negative) Urine WBC (0-5) /hpf Urine Bacteria (None) /hpf Urine Mucus (None) /hpf - Imaging and Cardiology Chest x-ray: report reviewed, image reviewed Assessment and Plan Assessment: Severe symptomatic aortic valve stenosis, NYHA class II sometimes class III, status post TAVR History of hypertension Hyperlipidemia Heart failure with preserved ejection fraction, EF 55% Bilateral internal carotid artery stenosis 50 to 69% Severe COPD on chronic home oxygen at 4 L nasal cannula, FEV1 29% of predicted Previous tobacco dependence Obstructive sleep apnea with home CPAP use Hypothyroid Previous stomach ulcer with GI bleed Obesity Acute hypoxic respiratory failure requiring prolonged mechanical ventilation Plan: Mechanical ventilator management per pulmonology Daily sedation holiday, assess neurological status, wean from ventilator as tolerated Continue to use Cleviprex for hypertension, levo for hypotension, no further fluid administration Lasix IV twice daily started, monitor output Will continue to monitor daily labs and x-rays, electrolyte replacement per protocol Screw-in temporary epicardial lead discontinued Once extubated encourage incentive spirometry use 10 times every hour while awake Once extubated increase activity as tolerated GI/DVT prophylaxis Continue to record strict accurate intake and output Daily weights More recommendations to follow as patient progresses
[2024-02-06 17:37] LABS: Glucose,Whole Blood 109 mg/dL (70-110)
[2024-02-06 23:00] LABS: Magnesium 1.8 mg/dL (1.6-2.3); Potassium 3.6 mmol/L (3.5-5.1)
[2024-02-07 00:15] LABS: Glucose,Whole Blood 110 mg/dL (70-110)
[2024-02-07 04:31] LABS: Basophils % (A) 0 %; Eosinophils # (A) 0.2 k/uL (0-0.7); Eosinophils % (A) 2 %; HCT 26.7 % (34.0-46.0); HGB 8.1 gm/dL (11.4-16.0); Hypochromasia Marked; Lymphocytes # (A) 1.3 k/uL (1.0-4.8); Lymphocytes % (A) 14 %; MCH 29.6 pg (25.0-35.0); MCHC 30.3 g/dL (31.0-37.0); MCV 97.7 fL (80.0-100.0); Mean Platelet Volume 8.5; Monocytes # (A) 0.5 k/uL (0-1.0); Monocytes % (A) 6 %; Neutrophils % (A) 77 %; Platelet Count 247 k/uL (150-450); RBC 2.73 m/uL (3.80-5.40); RDW 13.9 % (11.5-15.5); WBC 9.1 k/uL (3.8-10.6)
[2024-02-07 05:00] LABS: African American GFR (CKD) 83 (>60 ml/min/1.73 sqM); Anion Gap 3 mmol/L; Blood Urea Nitrogen 11 mg/dL (7-17); Calcium 8.2 mg/dL (8.4-10.2); Carbon Dioxide 33 mmol/L (22-30); Chloride 103 mmol/L (98-107); Glucose 97 mg/dL (74-99); Non-African American GFR(CKD) 72 (>60 ml/min/1.73 sqM); Potassium 3.8 mmol/L (3.5-5.1); Sodium 139 mmol/L (137-145)
[2024-02-07 05:21] LABS: ABG Base Excess 10.5 mmol/L; ABG HCO3 36 mmol/L (21-25); ABG Oxygen Saturation 97.2 % (94-97); ABG PCO2 50 mmHg (35-45); ABG PH 7.46 (7.35-7.45); ABG PO2 80 mmHg (83-108); ABG TCO2 37 mmol/L (19-24); Allen Test Performed? Yes
[2024-02-07] MEDS: POTASSIUM BICARBONATE/CIT AC 20 MEQ TABLET.EFF NG-TUBE SCH (07:22)
[2024-02-07] MEDS: DEXMEDETOMIDINE/0.9% NACL(PMX) 400 MCG in EMPTY BAG 1 BAG IV SCH (08:30)
--- NOTE | 2024-02-07 08:36 | XR ---
EXAMINATION TYPE: XR chest 1V portable DATE OF EXAM: 02/07/2024 5:04 AM CLINICAL INDICATION:Female, 83 years old with history of intubated, lung function; PH[facility] COMPARISON: Chest radiograph from one day prior. TECHNIQUE: XR chest 1V portable Frontal view of the chest. FINDINGS: Lungs/Pleura: No evidence of focal consolidation or pneumothorax. Blunting of the costophrenic angles is present. Pulmonary vascularity: Pulmonary vascular congestion. Heart/mediastinum: Cardiomediastinal silhouette is enlarged and stable. Musculoskeletal: No acute osseous pathology. Other findings: None Lines/Tubes: Endotracheal tube with distal tip 2.7 cm above the jany. Nasogastric tube with its distal tip and side-port projecting under the diaphragm. IMPRESSION: 1. Stable support tubes. 2. Cardiomegaly right pleural effusion
--- NOTE | 2024-02-07 09:02 | P.PN ---
Subjective Progress Note Date: 02/07/24 Principal diagnosis: Severe symptomatic aortic valve stenosis. Past medical history significant for hypertension, hyperlipidemia, chronic diastolic heart failure with preserved ej ection fraction, bilateral internal carotid artery stenosis 50 to 69%, severe COPD on chronic home oxygen at 4 L nasal cannula, obstructive sleep apnea with home CPAP use, hypothyroid, previous stomach ulcer with GI bleed, obesity, previous tobacco dependence POD #2 percutaneous aortic valve implantation using a 29 mm Evolut-FX, transesophageal echocardiography (performed by anesthesia), ultrasound-guided access and repair of right femoral artery access site by Perclose closure device, placement of temporary pacemaker wire, aortic root angiography, pre-TAVR balloon aortic valvuloplasty with a 23 mm true balloon, placement of sentinel cerebral embolic protection device Acute hypoxic respiratory failure requiring prolonged mechanical ventilation The patient was seen and examined in follow-up today February 07, 2024 at her bedside in the intensive care unit. She currently remains sedated on propofol drip, intubated with mechanical ventilator support with oxygen saturations 97%. Current mechanical ventilator settings are assist-control 16, TV 400, FiO2 35% and a PEEP of 5. ABG results this morning show a pH is 7.46, pCO2 50, pO2 80, HCO3 36, oxygen saturation 97.2, base excess 10.5 on current mechanical ventilator settings. Despite being sedated on propofol drip she is following so me verbal commands appropriately, moving all 4 extremities with simple verbal commands, squeezing hands and wiggling her toes. She remains hemodynamically stable and is currently on no inotropic or pressor support. Bedside telemetry is showing normal sinus rhythm heart rate 97 bpm. Transthoracic 2D echocardiogram was completed yesterday which demonstrated a normal left ventricular systolic function with an ejection fraction of 55%, grade 1 diastolic dysfunction, a normally functioning bioprosthetic aortic valve with peak/mean gradient 21/11 mmHg, peak velocity 2.3 m/s, no aortic valve insuf ficiency, no paravalvular leak, no pericardial effusion present although there was a noted pleural effusion with dilated IVC. Chest x-ray and laboratory results reviewed. Objective - Vital Signs Vital signs: Vital Signs Temp 98.7 F 02/07/24 04:30 Pulse 75 02/07/24 07:00 Resp 18 02/07/24 07:00 BP 147/66 02/07/24 07:00 Pulse Ox 97 02/07/24 06:00 FiO2 35 02/07/24 07:51 Intake & Output 02/06/24 02/07/24 02/07/24 18:59 06:59 18:59 Intake Total 1731.782 363.557 29.068 Output Total 3085 1340 85 Balance -1353.218 -976.443 -55.932 Intake: IV 1453 124 3 0.9 1370 Magnesium Sulfate-D5w Pmx 100 1 gm In Dextrose/Water 1 100ml.bag @ 100 mls/hr IVPB ONCE ONE Rx#: [id number] ceFAZolin 2 gm In Sodium 50 Chloride 0.9% 50 ml @ 100 mls/hr IVPB Q8HR [facility] Rx# :[id number] pressure bag 33 24 3 Intake, IV Titration 278.782 239.557 26.068 Amount Clevidipine Butyrate 25 35.500 mg In Empty Bag 1 bag @ 1 MG/HR 2 mls/hr IV .Q24H [facility] Rx#:[id number] Magnesium Sulfate-D5w Pmx 100 1 gm In Dextrose/Water 1 100ml.bag @ 100 mls/hr IVPB ONCE ONE Rx#: [id number] propofoL 1,000 mg In 143.282 239.557 26.068 Empty Bag 1 bag @ 20 MCG/ KG/MIN 11.172 mls/hr IV . Q8H58M [facility] Rx#:[id number] Output: Urine 3085 1340 85 Other: Voiding Method Indwelling Catheter Indwelling Catheter Indwelling Catheter ABP, PAP, CO, CI - Last Documented Arterial Blood Pressure 153/41 - Exam CONSTITUTIONAL: Remains sedated on mechanical ventilation, no apparent acute distress. RESPIRATORY: Lungs sounds diminished in the bases bilaterally, scattered rhonchi throughout. Respirations symmetrical, nonlabored with mechanical ventilator support. Currently on assist-control mode, FiO2 35%, PEEP 5, tidal volume 400, respiratory rate 16. 7.5 ET tube present, 22 at the lip. Strong cough. CARDIOVASCULAR: S1, S2 present. Regular rate and rhythm, normal sinus rhythm on telemetry, heart rate 97 bpm. Palpable peripheral pulses bilaterally. Generalized edema present. No calf pain or tenderness noted. SCDs present. GASTROINTESTINAL: Abdomen soft, nontender, nondistended, obese. Hypoactive zach wel sounds present 4 quadrants. OG tube present to low intermittent suction with minimal output. GENITOURINARY: Kwan present draining clear, yellow urine. Urine output 740 mL in the last 8 hours. INTEGUMENTARY: Skin is warm and dry. Bilateral groins soft, dry and intact MUSKULOSKELETAL: Sedated on mechanical ventilation but is moving her upper extremities and following some simple commands. INVASIVE LINES AND TUBES: Left radial arterial line present. - Allied health notes Allied health notes reviewed: nursing - Labs CBC & Chem 7: 02/07/24 04:20 02/07/24 04:20 Labs: Abnormal Lab Results - Last 24 Hours (Table) 02/06/24 02/06/24 02/07/24 Range/Units 10:27 12:12 04:20 RBC 2.73 L (3.80-5.40) m/uL Hgb 8.1 L (11.4-16.0) gm/dL Hct 26.7 L (34.0-46.0) % MCHC 30.3 L (31.0-37.0) g/dL ABG pH (7.35-7.45) ABG pCO2 50 H (35-45) mmHg ABG pO2 67 L (83-108) mmHg ABG HCO3 32 H (21-25) mmol/L ABG Total CO2 33 H (19-24) mmol/L ABG O2 Saturation (94-97) % Carbon Dioxide (22-30) mmol/L POC Glucose (mg/dL) 148 H (70-110) mg/dL Calcium (8.4-10.2) mg/dL 02/07/24 02/07/24 Range/Units 04:20 05:17 RBC (3.80-5.40) m/uL Hgb (11.4-16.0) gm/dL Hct (34.0-46.0) % MCHC (31.0-37.0) g/dL ABG pH 7.46 H (7.35-7.45) ABG pCO2 50 H (35-45) mmHg ABG pO2 80 L (83-108) mmHg ABG HCO3 36 H (21-25) mmol/L ABG Total CO2 37 H (19-24) mmol/L ABG O2 Saturation 97.2 H (94-97) % Carbon Dioxide 33 H (22-30) mmol/L POC Glucose (mg/dL) (70-110) mg/dL Calcium 8.2 L (8.4-10.2) mg/dL - Imaging and Cardiology Chest x-ray: report reviewed, image reviewed Assessment and Plan Assessment: Severe symptomatic aortic valve stenosis, NYHA class II sometimes class III, status post TAVR History of hypertension Hyperlipidemia Chronic diastolic heart failure with preserved ejection fraction, EF 55% Bilateral internal carotid artery stenosis 50 to 69% Severe COPD on chronic home oxygen at 4 L nasal cannula, FEV1 29% of predicted Previous tobacco dependence Obstructive sleep apnea with home CPAP use Hypothyroid Previous stomach ulcer with GI bleed Obesity with a BMI of 35.7 kg/m Acute hypoxic respiratory failure requiring prolonged mechanical ventilation Plan: Mechanical ventilator management per pulmonology/critical care medicine recommendations. Daily sedation holiday, assess neurological status, wean from ventilator as tolerated. Continue to use Cleviprex for hypertension, levo for hypotension, no further fluid administration. Continue Lasix IV twice daily, continue to monitor strict output. Will continue to monitor daily labs and chest x-rays, electrolyte replacement per protocol. Once extubated encourage incentive spirometry use 10 times every hour while awake. Once extubated increase activity as tolerated. Out of bed for all meals. Will consult physical and Occupational Therapy once extubated. GI/DVT prophylaxis. Continue to record strict accurate intake and output. Daily weights. More recommendations to follow based on patient's clinical course. Time with Patient: Greater than 30
[2024-02-07 11:29] LABS: ABG Base Excess 12.8 mmol/L; ABG HCO3 38 mmol/L (21-25); ABG Oxygen Saturation 97.6 % (94-97); ABG PCO2 52 mmHg (35-45); ABG PH 7.47 (7.35-7.45); ABG PO2 83 mmHg (83-108); ABG TCO2 40 mmol/L (19-24); Allen Test Performed? Yes
[2024-02-07 11:59] LABS: Glucose,Whole Blood 131 mg/dL (70-110)
--- NOTE | 2024-02-07 12:47 | P.PN ---
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 She had been having significant and progressive dyspnea on exertion. She was seen and evaluated in the valve clinic and was found to have severe aortic valve stenosis. She was brought in today electively for a TAVR procedure. She did receive a 29 mm Medtronic evolute flex prosthesis via right transfemoral approach. During the initiation of the pro cedure the patient was moving around quite a bit and could not tolerate enough IV sedation and she was subsequently intubated during the procedure. She remained intubated following the procedure and was transferred to the intensive care unit. She is currently in assist-control mode at a rate of 20, tidal volume 400, FiO2 of 35% and a PEEP of 5. Initial blood gases on 50% FiO2 revealed a PaO2 of 127, pCO2 of 50 and a pH of 7.43. She is can currently sedated on propofol at 40 mcg/kg/min. She is also on Cleviprex at 1.5 mg/h. Pacemaker with backup pacing at 50. Chest x-ray reveals satisfactory endotracheal and nasogastric tubes in place. There is multifocal patchy airspace disease, right greater than left. Possible pulmonary edema. Small bilateral pleural effusions with adjacent atelectasis. Noted endovascular aortic valve replacement. White count 10.5. Hemoglobin 8.9. Platelets 271. Sodium 142. Potassium 3.6. Bicarb 35. BUN 11. Creatinine 0.66. Glucose 151. Reevaluated today on 02/06/2024, patient remains in the ICU, intubated and mechanically ventilated. Her sedation was placed on hold earlier this morning, patient is on assist-control rate of 20 tidal volume 400 FiO2 35% and PEEP of 5. ABG showed a pO2 of 99 pCO2 45 pH of 7.47. Patient is requiring Cleviprex for high blood pressure at 5 mg/h, her IV fluid is running at 0.9 normal saline. Chest x-ray showed very minimal pulmonary congestion superimposed on COPD patient was transitioned briefly to a pressure support of 10 and CPAP, and she was doing well and the plan was to extubate if tolerated at least 20 minutes of pressure support and CPAP. However within 10 minutes patient short of developed increased shortness of breath, could not ventilate the patient had to disconnect from mechanical ventilation and Ambu bag the patient until her O2 saturation came back up. Patient was extremely restless, almost like panicked out. Hence decided that she is not ready for weaning or extubation, and repeated her chest x-ray there is no evidence of pneumothorax and there was no change. My plan is to place back on mechanical ventilation with assist mode, sedated the patient with propofol, and I plan to readdress this tomorrow morning possibly transition the patient to Precedex prior to weaning. And will try to shoot for maintaining her pCO2 up in the 60s and pH in the 7.35 range. This is likely her baseline before we proceed with weaning. Patient did not tolerate any weaning trial today. Patient was reevaluated today on 02/07/2024, remains in the ICU, intubated and mechanically ventilated. Yesterday the patient had a weaning trial, however she failed and could not be extubated. I believe the patient seemed to be quite anxious agitated as she was weaning. And the extubation was delayed. Today I recommended that we go to Precedex while tapering down the propofol, and not to start weaning process until the patient is on Precedex. Indeed the patient went on Precedex, she was on 0.3 mcg/kg/h, and she is off propofol after Precedex was increased to the dose. Patient seems to be calm, she was placed for about an hour on pressure support of 8 and CPAP. ABG showed a pO2 of 83 pCO2 52 pH of 7.47, this was on 35%, hence I recommended we extubate the patient to BiPAP 07/03/35%. Is mostly at bedside during the whole time process. Chest x-ray showing mild interstitial changes/edema patient did receive Lasix and she is on Lasix 40 mg IV push twice daily. Objective - Vital Signs Vital signs: Vital Signs Temp 98.2 F 02/07/24 08:00 Pulse 81 02/07/24 12:00 Resp 20 02/07/24 12:00 BP 124/40 02/07/24 12:00 Pulse Ox 97 02/07/24 12:00 FiO2 35 02/07/24 11:07 Intake & Output 02/06/24 02/07/24 02/07/24 18:59 06:59 18:59 Intake Total 1731.782 363.557 78.794 Output Total 3085 1340 2135 Balance -1353.218 -976.443 -2056.206 Intake: IV 1453 124 18 0.9 1370 Magnesium Sulfate-D5w Pmx 100 1 gm In Dextrose/Water 1 100ml.bag @ 100 mls/hr IVPB ONCE ONE Rx#: [id number] ceFAZolin 2 gm In Sodium 50 Chloride 0.9% 50 ml @ 100 mls/hr IVPB Q8HR [facility] Rx# :[id number] pressure bag 33 24 18 Intake, IV Titration 278.782 239.557 60.794 Amount Clevidipine Butyrate 25 35.500 mg In Empty Bag 1 bag @ 1 MG/HR 2 mls/hr IV .Q24H [facility] Rx#:[id number] Dexmedetomidine/0.9% NaCl 5.027 (Pmx) 400 mcg In Empty Bag 1 bag @ 0.2 MCG/KG/HR 4.865 mls/hr IV .[id number] [facility] Rx#:[id number] Magnesium Sulfate-D5w Pmx 100 1 gm In Dextrose/Water 1 100ml.bag @ 100 mls/hr IVPB ONCE ONE Rx#: [id number] propofoL 1,000 mg In 143.282 239.557 55.767 Empty Bag 1 bag @ 20 MCG/ KG/MIN 11.172 mls/hr IV . Q8H58M [facility] Rx#:[id number] Output: Urine 3085 1340 2135 Other: Voiding Method Indwelling Catheter Indwelling Catheter Indwelling Catheter ABP, PAP, CO, CI - Last Documented Arterial Blood Pressure 111/31 - Exam GENERAL EXAM: Intubated, remains calm on Precedex. HEAD: Normocephalic. EYES: Normal reaction of pupils, equal size. NOSE: Clear with pink turbinates. THROAT: No erythema or exudates. NECK: No masses, no JVD. CHEST: No chest wall deformity. LUNGS: Diminished breath sound bilaterally no rhonchi no wheezes CVS: S1 and S2 normal with 2/6 systolic murmur throughout the precordium ABDOMEN: No hepatosplenomegaly, normal bowel sounds, no guarding or rigidity. SKIN: No rashes CENTRAL NERVOUS SYSTEM: Alert and oriented x 3, no gross focal deficit. EXTREMITIES: Right groin site stable. There is no peripheral edema. No clubbing, no cyanosis. Peripheral pulses are intact. - Labs CBC & Chem 7: 02/07/24 04:20 02/07/24 04:20 Labs: Abnormal Lab Results - Last 24 Hours (Table) 02/07/24 02/07/24 02/07/24 Range/Units 04:20 04:20 05:17 RBC 2.73 L (3.80-5.40) m/uL Hgb 8.1 L (11.4-16.0) gm/dL Hct 26.7 L (34.0-46.0) % MCHC 30.3 L (31.0-37.0) g/dL ABG pH 7.46 H (7.35-7.45) ABG pCO2 50 H (35-45) mmHg ABG pO2 80 L (83-108) mmHg ABG HCO3 36 H (21-25) mmol/L ABG Total CO2 37 H (19-24) mmol/L ABG O2 Saturation 97.2 H (94-97) % Carbon Dioxide 33 H (22-30) mmol/L POC Glucose (mg/dL) (70-110) mg/dL Calcium 8.2 L (8.4-10.2) mg/dL 02/07/24 02/07/24 Range/Units 10:45 11:57 RBC (3.80-5.40) m/uL Hgb (11.4-16.0) gm/dL Hct (34.0-46.0) % MCHC (31.0-37.0) g/dL ABG pH 7.47 H (7.35-7.45) ABG pCO2 52 H (35-45) mmHg ABG pO2 (83-108) mmHg ABG HCO3 38 H (21-25) mmol/L ABG Total CO2 40 H (19-24) mmol/L ABG O2 Saturation 97.6 H (94-97) % Carbon Dioxide (22-30) mmol/L POC Glucose (mg/dL) 131 H (70-110) mg/dL Calcium (8.4-10.2) mg/dL Assessment and Plan Assessment: Impression: Severe aortic stenosis, status post transfemoral transcatheter aortic valve replacement. Postoperative day #2. Acute hypoxic respiratory failure secondary to severe COPD exacerbation, patient required general anesthesia during her TAVR procedure, and she failed weaning today mostly because of her severe COPD. History of severe COPD/FEV1 of 26%. Ex-smoker Hypothyroidism Dyslipidemia Obstructive sleep apnea syndrome benign essential hypertension History of congestive heart failure History of gastric ulcer Recommendation: As noted earlier, patient was placed on Precedex, propofol was gradually weaned and discontinued, patient was given a trial of pressure support of 8 and CPAP, tolerated quite well, hence I am extubating the patient to BiPAP Continue bronchodilators Continue to titrate Cleviprex Continue GI DVT prophylaxis Continue diuretics Will continue to follow. Patient remains relatively critically ill. And we will continue to monitor the patient in the ICU for now as she is a potential set up for reintubation. Critical care time is over 30 minutes Time with Patient: Greater than 30
[2024-02-07 17:38] LABS: Glucose,Whole Blood 171 mg/dL (70-110)
[2024-02-07] MEDS: IPRATROPIUM-ALBUTEROL 3 ML NEB INHALATION SCH (20:14)
[2024-02-07] MEDS: METOPROLOL TARTRATE 25 MG TAB PO SCH (20:31)
[2024-02-07 23:37] LABS: Glucose,Whole Blood 117 mg/dL (70-110)
[2024-02-08 00:13] LABS: Glucose,Whole Blood 117 mg/dL (70-110)
[2024-02-08 03:58] LABS: ALT <6 U/L (4-34); AST 17 U/L (14-36); African American GFR (CKD) 81 (>60 ml/min/1.73 sqM); Alkaline Phosphatase 122 U/L (38-126); Anion Gap 4 mmol/L; Blood Urea Nitrogen 12 mg/dL (7-17); Calcium 8.6 mg/dL (8.4-10.2); Carbon Dioxide 36 mmol/L (22-30); Chloride 98 mmol/L (98-107); Glucose 107 mg/dL (74-99); Non-African American GFR(CKD) 71 (>60 ml/min/1.73 sqM); Potassium 3.8 mmol/L (3.5-5.1); Sodium 138 mmol/L (137-145); Total Bilirubin 0.4 mg/dL (0.2-1.3); Total Protein 5.6 g/dL (6.3-8.2)
[2024-02-08 04:25] LABS: Basophils % (A) 0 %; Eosinophils # (A) 0.3 k/uL (0-0.7); Eosinophils % (A) 3 %; HCT 28.7 % (34.0-46.0); HGB 8.8 gm/dL (11.4-16.0); Hypochromasia Marked; Lymphocytes # (A) 1.3 k/uL (1.0-4.8); Lymphocytes % (A) 13 %; MCH 29.6 pg (25.0-35.0); MCHC 30.7 g/dL (31.0-37.0); MCV 96.3 fL (80.0-100.0); Mean Platelet Volume 7.6; Monocytes # (A) 0.7 k/uL (0-1.0); Monocytes % (A) 7 %; Neutrophils # (A) 7.6 k/uL (1.3-7.7); Neutrophils % (A) 75 %; Platelet Count 258 k/uL (150-450); RBC 2.98 m/uL (3.80-5.40); RDW 13.9 % (11.5-15.5); WBC 10.1 k/uL (3.8-10.6)
[2024-02-08 06:19] LABS: Glucose,Whole Blood 114 mg/dL (70-110)
[2024-02-08 06:39] LABS: Glucose,Whole Blood 116 mg/dL (70-110)
--- NOTE | 2024-02-08 07:38 | P.PN ---
Subjective Progress Note Date: 02/08/24 Principal diagnosis: Severe symptomatic aortic valve stenosis. Past medical history significant for hypertension, hyperlipidemia, chronic diastolic heart failure with preserved ej ection fraction, bilateral internal carotid artery stenosis 50 to 69%, severe COPD on chronic home oxygen at 4 L nasal cannula, obstructive sleep apnea with home CPAP use, hypothyroid, previous stomach ulcer with GI bleed, obesity, previous tobacco dependence POD #3 percutaneous aortic valve implantation using a 29 mm Evolut-FX, transesophageal echocardiography (performed by anesthesia), ultrasound-guided access and repair of right femoral artery access site by Perclose closure device, placement of temporary pacemaker wire, aortic root angiography, pre-TAVR balloon aortic valvuloplasty with a 23 mm true balloon, placement of sentinel cerebral embolic protection device Acute hypoxic respiratory failure requiring prolonged mechanical ventilation The patient was seen and examined in follow-up today February 08, 2024 at her bedside in the intensive care unit. She was successfully extubated yesterday at 11 AM, and is currently on 4 L nasal cannula which she uses at home with her oxygen saturations currently 99%. Bedside telemetry is showing normal sinus rhythm heart rate 93 bpm, she was started on metoprolol to tartrate 25 mg p.o. twice daily yesterday by Dr. De La Fuente. She is currently sitting up to the bedside chair, is awake, alert, oriented x 3 and is in no acute apparent distres s. Denies any complaints of pain or shortness of breath at this time. She remains hemodynamically stable and is currently on no inotropic or pressor support. Chest x-ray and laboratory results were reviewed. Objective - Vital Signs Vital signs: Vital Signs Temp 98.8 F 02/08/24 04:00 Pulse 68 02/08/24 05:00 Resp 22 02/08/24 07:00 BP 155/58 02/08/24 07:00 Pulse Ox 94 L 02/08/24 07:00 FiO2 35 02/07/24 11:07 Intake & Output 02/07/24 02/08/24 02/08/24 18:59 06:59 18:59 Intake Total 109.242 Output Total 2735 1175 35 Balance -2625.758 -1175 -35 Weight 97.3 kg Intake: IV 24 0.9 0 pressure bag 24 Intake, IV Titration 85.242 Amount Dexmedetomidine/0.9% NaCl 29.475 (Pmx) 400 mcg In Empty Bag 1 bag @ 0.2 MCG/KG/HR 4.865 mls/hr IV .[id number] [facility] Rx#:[id number] propofoL 1,000 mg In 55.767 Empty Bag 1 bag @ 20 MCG/ KG/MIN 11.172 mls/hr IV . Q8H58M [facility] Rx#:[id number] Output: Urine 2735 1175 35 Other: Voiding Method Indwelling Catheter Indwelling Catheter ABP, PAP, CO, CI - Last Documented Arterial Blood Pressure 128/33 - Exam CONSTITUTIONAL: Sitting up to the bedside chair in the intensive care unit, appears comfortable, cooperative, no apparent acute distress. HEENT: Neck is supple, no JVD, no lymphadenopathy. RESPIRATORY: Lungs sounds essentially clear throughout, diminished to his bilateral bases. Respirations are symmetrical and nonlabored. Currently on 4 L nasal cannula with oxygen saturations 99%. Strong cough. CARDIOVASCULAR: Regular rhythm and rate. S1 and S2 present, negative for S3, gallop or murmur. Bedside telemetry showing normal sinus rhythm with bundle branch block heart rate 93 bpm. +1 edema to her bilateral lower extremities. No calf pain or tenderness noted. Knee-high sequential compression devices in place to her bilateral lower extremities. GASTROINTESTINAL: Abdomen soft, nontender, nondistended. Active bowel sounds present 4 quadrants. Tolerating diet. Passing flatus. No guarding or ri gidity. GENITOURINARY: Kwan present draining clear, yellow urine. Urine output 565 mL in the last 8 hours. INTEGUMENTARY: Skin is warm and dry with no evidence of clubbing or cyanosis. Bilateral groin puncture sites clean, dry, soft and nontender. NEUROLOGIC: Cranial nerves II through XII intact. No focal deficits. MUSKULOSKELETAL: Able to move all extremities, strength equal bilaterally, generalized weakness. PSYCHIATRIC: Alert and oriented to person place and time, appropriate affect, intact judgment and insight. - Allied health notes Allied health notes reviewed: nursing - Labs CBC & Chem 7: 02/08/24 03:09 02/08/24 03:09 Labs: Abnormal Lab Results - Last 24 Hours (Table) 02/07/24 02/07/24 02/07/24 Range/Units 10:45 11:57 17:36 RBC (3.80-5.40) m/uL Hgb (11.4-16.0) gm/dL Hct (34.0-46.0) % MCHC (31.0-37.0) g/dL ABG pH 7.47 H (7.35-7.45) ABG pCO2 52 H (35-45) mmHg ABG HCO3 38 H (21-25) mmol/L ABG Total CO2 40 H (19-24) mmol/L ABG O2 Saturation 97.6 H (94-97) % Carbon Dioxide (22-30) mmol/L Glucose (74-99) mg/dL POC Glucose (mg/dL) 131 H 171 H (70-110) mg/dL Total Protein (6.3-8.2) g/dL Albumin (3.5-5.0) g/dL 02/07/24 02/08/24 02/08/24 Range/Units 23:36 00:12 03:09 RBC 2.98 L (3.80-5.40) m/uL Hgb 8.8 L (11.4-16.0) gm/dL Hct 28.7 L (34.0-46.0) % MCHC 30.7 L (31.0-37.0) g/dL ABG pH (7.35-7.45) ABG pCO2 (35-45) mmHg ABG HCO3 (21-25) mmol/L ABG Total CO2 (19-24) mmol/L ABG O2 Saturation (94-97) % Carbon Dioxide (22-30) mmol/L Glucose (74-99) mg/dL POC Glucose (mg/dL) 117 H 117 H (70-110) mg/dL Total Protein (6.3-8.2) g/dL Albumin (3.5-5.0) g/dL 02/08/24 02/08/24 02/08/24 Range/Units 03:09 06:18 06:38 RBC (3.80-5.40) m/uL Hgb (11.4-16.0) gm/dL Hct (34.0-46.0) % MCHC (31.0-37.0) g/dL ABG pH (7.35-7.45) ABG pCO2 (35-45) mmHg ABG HCO3 (21-25) mmol/L ABG Total CO2 (19-24) mmol/L ABG O2 Saturation (94-97) % Carbon Dioxide 36 H (22-30) mmol/L Glucose 107 H (74-99) mg/dL POC Glucose (mg/dL) 114 H 116 H (70-110) mg/dL Total Protein 5.6 L (6.3-8.2) g/dL Albumin 3.0 L (3.5-5.0) g/dL - Imaging and Cardiology Chest x-ray: report reviewed, image reviewed Assessment and Plan Assessment: Severe symptomatic aortic valve stenosis, NYHA class II sometimes class III, status post TAVR History of hypertension Hyperlipidemia Chronic diastolic heart failure with preserved ejection fraction, EF 55% Bilateral internal carotid artery stenosis 50 to 69% Severe COPD on chronic home oxygen at 4 L nasal cannula, FEV1 29% of predicted Previous tobacco dependence Obstructive sleep apnea with home CPAP use Hypothyroid Previous stomach ulcer with GI bleed Obesity with a BMI of 35.7 kg/m Acute hypoxic respiratory failure requiring prolonged mechanical ventilation, successfully extubated currently on 4 L nasal cannula Plan: Wean oxygen as tolerated. Bronchodilators management per pulmonology/critical care medicine recommendations. Encourage use of incentive spirometry 10 times every hour while awake. Continue to maximize medical therapy with aspirin, statin and beta-bridgette. Will increase beta-bridgette as tolerated. Continue Lasix IV twice daily, continue to monitor strict output. Will continue to monitor daily labs and chest x-rays, electrolyte replacement per protocol. Increase activity as tolerated. Out of bed for all meals. Physical and Occupational Therapy have been consulted. GI/DVT prophylaxis. Continue to record strict accurate intake and output. Daily weights. Will place transfer orders to the third floor cardiac stepdown unit for further monitoring and rehabilitation. More recommendations to follow based on patient's clinical course. Time with Patient: Greater than 30
[2024-02-08] MEDS: POTASSIUM CHLORIDE ER 20 MEQ TAB.ER PO SCH (08:23)
--- NOTE | 2024-02-08 08:40 | XR ---
EXAMINATION TYPE: XR chest 1V portable DATE OF EXAM: 02/08/2024 COMPARISON: 02/07/2024 INDICATION: Tube placement TECHNIQUE: Single frontal view of the chest is obtained. FINDINGS: The heart size is a prominent. The pulmonary vasculature is upper limits of normal. Bibasilar infiltrates are present. Small effusions are present. IMPRESSION: 1. Clinical correlation for congestive heart failure. Differential diagnosis could include atelectasi s and bibasilar pneumonia. Small bilateral pleural effusions present.
--- NOTE | 2024-02-08 10:44 | P.PN ---
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 She had been having significant and progressive dyspnea on exertion. She was seen and evaluated in the valve clinic and was found to have severe aortic valve stenosis. She was brought in today electively for a TAVR procedure. She did receive a 29 mm Medtronic evolute flex prosthesis via right transfemoral approach. During the initiation of the pro cedure the patient was moving around quite a bit and could not tolerate enough IV sedation and she was subsequently intubated during the procedure. She remained intubated following the procedure and was transferred to the intensive care unit. She is currently in assist-control mode at a rate of 20, tidal volume 400, FiO2 of 35% and a PEEP of 5. Initial blood gases on 50% FiO2 revealed a PaO2 of 127, pCO2 of 50 and a pH of 7.43. She is can currently sedated on propofol at 40 mcg/kg/min. She is also on Cleviprex at 1.5 mg/h. Pacemaker with backup pacing at 50. Chest x-ray reveals satisfactory endotracheal and nasogastric tubes in place. There is multifocal patchy airspace disease, right greater than left. Possible pulmonary edema. Small bilateral pleural effusions with adjacent atelectasis. Noted endovascular aortic valve replacement. White count 10.5. Hemoglobin 8.9. Platelets 271. Sodium 142. Potassium 3.6. Bicarb 35. BUN 11. Creatinine 0.66. Glucose 151. Reevaluated today on 02/06/2024, patient remains in the ICU, intubated and mechanically ventilated. Her sedation was placed on hold earlier this morning, patient is on assist-control rate of 20 tidal volume 400 FiO2 35% and PEEP of 5. ABG showed a pO2 of 99 pCO2 45 pH of 7.47. Patient is requiring Cleviprex for high blood pressure at 5 mg/h, her IV fluid is running at 0.9 normal saline. Chest x-ray showed very minimal pulmonary congestion superimposed on COPD patient was transitioned briefly to a pressure support of 10 and CPAP, and she was doing well and the plan was to extubate if tolerated at least 20 minutes of pressure support and CPAP. However within 10 minutes patient short of developed increased shortness of breath, could not ventilate the patient had to disconnect from mechanical ventilation and Ambu bag the patient until her O2 saturation came back up. Patient was extremely restless, almost like panicked out. Hence decided that she is not ready for weaning or extubation, and repeated her chest x-ray there is no evidence of pneumothorax and there was no change. My plan is to place back on mechanical ventilation with assist mode, sedated the patient with propofol, and I plan to readdress this tomorrow morning possibly transition the patient to Precedex prior to weaning. And will try to shoot for maintaining her pCO2 up in the 60s and pH in the 7.35 range. This is likely her baseline before we proceed with weaning. Patient did not tolerate any weaning trial today. Patient was reevaluated today on 02/07/2024, remains in the ICU, intubated and mechanically ventilated. Yesterday the patient had a weaning trial, however she failed and could not be extubated. I believe the patient seemed to be quite anxious agitated as she was weaning. And the extubation was delayed. Today I recommended that we go to Precedex while tapering down the propofol, and not to start weaning process until the patient is on Precedex. Indeed the patient went on Precedex, she was on 0.3 mcg/kg/h, and she is off propofol after Precedex was increased to the dose. Patient seems to be calm, she was placed for about an hour on pressure support of 8 and CPAP. ABG showed a pO2 of 83 pCO2 52 pH of 7.47, this was on 35%, hence I recommended we extubate the patient to BiPAP //35%. Is mostly at bedside during the whole time process. Chest x-ray showing mild interstitial changes/edema patient did receive Lasix and she is on Lasix 40 mg IV push twice daily. Patient was seen today on 02/08/2024, patient was extubated yesterday, tolerated the extubation well. Patient is POD #3 percutaneous aortic valve implantation using a 29 mm Evolut-FX, transesophageal echocardiography (performed by anesthesia), ultrasound-guided access and repair of right femoral artery access site by Perclose closure device, placement of temporary pacemaker wire, aortic root angiography, pre-TAVR balloon aortic valvuloplasty with a 23 mm true balloon, placement of sentinel cerebral embolic protection device. Today the patient remains in the ICU, she is on 4 L nasal cannula, does not seem to be in any distress, she is quite comfortable. Hemodynamically stable, her heart rate is 93, patient is on metoprolol and she is also on Lasix. Being followed by cardiothoracic surgery and by cardiology. Chest x-ray is showing some component of mild congestive heart failure, however the patient is doing well with diuretics. And receiving Lasix twice daily. WBC count today is 10.1 hemoglobin 28.7 basic metabolic profile is normal and renal profile is normal Objective - Vital Signs Vital signs: Vital Signs Temp 98.2 F 02/08/24 08:00 Pulse 76 02/08/24 09:00 Resp 14 02/08/24 10:00 BP 132/62 02/08/24 10:00 Pulse Ox 94 L 02/08/24 10:00 FiO2 35 02/07/24 11:07 Intake & Output 02/07/24 02/08/24 02/08/24 18:59 06:59 18:59 Intake Total 109.242 Output Total 2735 1175 185 Balance -2625.758 -1175 -185 Weight 97.3 kg Intake: IV 24 0.9 0 pressure bag 24 Intake, IV Titration 85.242 Amount Dexmedetomidine/0.9% NaCl 29.475 (Pmx) 400 mcg In Empty Bag 1 bag @ 0.2 MCG/KG/HR 4.865 mls/hr IV .[id number] [facility] Rx#:[id number] propofoL 1,000 mg In 55.767 Empty Bag 1 bag @ 20 MCG/ KG/MIN 11.172 mls/hr IV . [id number] [facility] Rx#:[id number] Output: Urine 2735 1175 185 Other: Voiding Method Indwelling Catheter Indwelling Catheter Indwelling Catheter ABP, PAP, CO, CI - Last Documented Arterial Blood Pressure 128/33 - Exam GENERAL EXAM: Revealed 83-year-old female in no distress on 4 L nasal cannula HEAD: Normocephalic. EYES: Normal reaction of pupils, equal size. NOSE: Clear with pink turbinates. THROAT: No erythema or exudates. NECK: No masses, no JVD. CHEST: No chest wall deformity. LUNGS: Fine crackles at the bases no rhonchi no wheezes CVS: S1 and S2 normal with 2/6 systolic murmur throughout the precordium ABDOMEN: No hepatosplenomegaly, normal bowel sounds, no guarding or rigidity. SKIN: No rashes CENTRAL NERVOUS SYSTEM: Alert and oriented x 3, no gross focal deficit. EXTREMITIES: No clubbing edema or cyanosis - Labs CBC & Chem 7: 02/08/24 03:09 02/08/24 03:09 Labs: Abnormal Lab Results - Last 24 Hours (Table) 02/07/24 02/07/24 02/07/24 Range/Units 10:45 11:57 17:36 RBC (3.80-5.40) m/uL Hgb (11.4-16.0) gm/dL Hct (34.0-46.0) % MCHC (31.0-37.0) g/dL ABG pH 7.47 H (7.35-7.45) ABG pCO2 52 H (35-45) mmHg ABG HCO3 38 H (21-25) mmol/L ABG Total CO2 40 H (19-24) mmol/L ABG O2 Saturation 97.6 H (94-97) % Carbon Dioxide (22-30) mmol/L Glucose (74-99) mg/dL POC Glucose (mg/dL) 131 H 171 H (70-110) mg/dL Total Protein (6.3-8.2) g/dL Albumin (3.5-5.0) g/dL 02/07/24 02/08/24 02/08/24 Range/Units 23:36 00:12 03:09 RBC 2.98 L (3.80-5.40) m/uL Hgb 8.8 L (11.4-16.0) gm/dL Hct 28.7 L (34.0-46.0) % MCHC 30.7 L (31.0-37.0) g/dL ABG pH (7.35-7.45) ABG pCO2 (35-45) mmHg ABG HCO3 (21-25) mmol/L ABG Total CO2 (19-24) mmol/L ABG O2 Saturation (94-97) % Carbon Dioxide (22-30) mmol/L Glucose (74-99) mg/dL POC Glucose (mg/dL) 117 H 117 H (70-110) mg/dL Total Protein (6.3-8.2) g/dL Albumin (3.5-5.0) g/dL 02/08/24 02/08/24 02/08/24 Range/Units 03:09 06:18 06:38 RBC (3.80-5.40) m/uL Hgb (11.4-16.0) gm/dL Hct (34.0-46.0) % MCHC (31.0-37.0) g/dL ABG pH (7.35-7.45) ABG pCO2 (35-45) mmHg ABG HCO3 (21-25) mmol/L ABG Total CO2 (19-24) mmol/L ABG O2 Saturation (94-97) % Carbon Dioxide 36 H (22-30) mmol/L Glucose 107 H (74-99) mg/dL POC Glucose (mg/dL) 114 H 116 H (70-110) mg/dL Total Protein 5.6 L (6.3-8.2) g/dL Albumin 3.0 L (3.5-5.0) g/dL Assessment and Plan Assessment: Impression: Severe aortic stenosis, status post transfemoral transcatheter aortic valve replacement. Postoperative day #3 Acute hypoxic respiratory failure secondary to severe COPD exacerbation, patient required general anesthesia during her TAVR procedure, patient was successfully extubated on 02/06 History of severe COPD/FEV1 of 26%. Ex-smoker Hypothyroidism Dyslipidemia Obstructive sleep apnea syndrome benign essential hypertension History of congestive heart failure History of gastric ulcer Recommendation: Transfer patient out of the ICU to cardiac floor Continue bronchodilators Continue incentive spirometry Continue GI DVT prophylaxis Continue diuretics Will continue to follow. Time with Patient: Less than 30
[2024-02-08] MEDS: LACTATED RINGERS 1,000 ML IV SCH (13:15)
--- NOTE | 2024-02-09 07:47 | XR ---
EXAMINATION TYPE: XR chest 2V DATE OF EXAM: 02/09/2024 COMPARISON: 7 4 HISTORY: Shortness of breath TECHNIQUE: Frontal and lateral views of the chest are obtained. FINDINGS: Scattered senescent parenchymal changes noted. Hyperinflation compatible with COPD. Continued pulmonary venous congestion with small effusions and overall stable chest. Mediastinal structures are stable and grossly unremarkable. No evidence for hilar prominence. Degenerative changes dorsal spine. IMPRESSION: 1. Continued pulmonary venous congestion with small effusions and overall stable chest.
[2024-02-09 07:53] LABS: HGB 8.3 gm/dL (11.4-16.0); Hypochromasia Marked; MCH 29.1 pg (25.0-35.0); MCHC 29.5 g/dL (31.0-37.0); MCV 98.4 fL (80.0-100.0); Mean Platelet Volume 7.7; Platelet Count 248 k/uL (150-450); RBC 2.84 m/uL (3.80-5.40); RDW 13.7 % (11.5-15.5)
[2024-02-09 08:04] LABS: African American GFR (CKD) 70 (>60 ml/min/1.73 sqM); Anion Gap 3 mmol/L; Blood Urea Nitrogen 16 mg/dL (7-17); Calcium 8.1 mg/dL (8.4-10.2); Carbon Dioxide 37 mmol/L (22-30); Chloride 95 mmol/L (98-107); Glucose 107 mg/dL (74-99); Magnesium 1.8 mg/dL (1.6-2.3); Non-African American GFR(CKD) 61 (>60 ml/min/1.73 sqM); Sodium 135 mmol/L (137-145)
--- NOTE | 2024-02-09 10:38 | P.PN ---
Subjective HISTORY OF PRESENT ILLNESS: Patient is status post percutaneous aortic valve implantation. Postop day #4. Patient has been transferred out of the intensive care unit to the cardiac stepdown unit. Patient examined this morning the bedside. Patient currently denies any chest pain or pressure. She denies any shortness of breath. Vital signs are stable. She is maintaining sinus mechanism. PHYSICAL EXAM: VITAL SIGNS: Reviewed. GENERAL: Well-developed in no acute distress. NECK: Supple. No JVD or thyromegaly LUNGS: Respirations even and unlabored. Lungs essentially clear to auscultation bilaterally. HEART: Regular rate and rhythm. S1 and S2 heard. EXTREMITIES: Normal range of motion. No clubbing or cyanosis. Peripheral pulses intact. No lower extremity edema ASSESSMENT: Severe symptomatic aortic stenosis, status post TAVR Acute hypoxic respiratory failure requiring mechanical ventilation Acute on chronic heart failure with preserved EF, 55% Severe COPD on home oxygen Hypertension Hyperlipidemia Bilateral internal carotid artery stenosis, 50 to 69%, obstructive sleep apnea with home CPAP use Former nicotine dependence Obesity: BMI 33.4 PLAN: Continue IV Lasix 40 mg every 12 hours Daily weights, accurate intake and output, and monitoring of kidney function Continue additional cardiac medications Continue telemetry monitoring Encourage use of incentive spirometer Increase activity as tolerated Further recommendations pending patient course Nurse practitioner note has been reviewed by physician. Signing provider agrees with the documented findings, assessment, and plan of care documented by DEPUTY MANAGER as a scribe. Objective - Vital Signs Vital signs: Vital Signs Temp 97.8 F 02/09/24 08:00 Pulse 85 02/09/24 08:27 Resp 18 02/09/24 08:42 BP 134/66 02/09/24 08:00 Pulse Ox 98 02/09/24 08:13 FiO2 35 02/07/24 11:07 Intake & Output 02/08/24 02/09/24 02/09/24 18:59 06:59 18:59 Intake Total 260 40 378 Output Total 285 400 Balance -25 -360 378 Weight 91 kg Intake: IV 20 40 20 Invasive Line 1 10 20 10 Invasive Line 4 10 20 10 Oral 240 358 Output: Urine 285 400 Uretheral (Kwan) 400 Other: Voiding Method Indwelling Catheter External Catheter External Catheter # Voids 1 1 # Bowel Movements 1 ABP, PAP, CO, CI - Last Documented Arterial Blood Pressure 128/33 - Labs CBC & Chem 7: 02/09/24 06:25 02/09/24 06:25 Labs: Abnormal Lab Results - Last 24 Hours (Table) 02/09/24 02/09/24 Range/Units 06:25 06:25 RBC 2.84 L (3.80-5.40) m/uL Hgb 8.3 L (11.4-16.0) gm/dL Hct 28.0 L (34.0-46.0) % MCHC 29.5 L (31.0-37.0) g/dL Sodium 135 L (137-145) mmol/L Chloride 95 L (98-107) mmol/L Carbon Dioxide 37 H (22-30) mmol/L Glucose 107 H (74-99) mg/dL Calcium 8.1 L (8.4-10.2) mg/dL
--- NOTE | 2024-02-09 12:27 | P.PN ---
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 She had been having significant and progressive dyspnea on exertion. She was seen and evaluated in the valve clinic and was found to have severe aortic valve stenosis. She was brought in today electively for a TAVR procedure. She did receive a 29 mm Medtronic evolute flex prosthesis via right transfemoral approach. During the initiation of the pro cedure the patient was moving around quite a bit and could not tolerate enough IV sedation and she was subsequently intubated during the procedure. She remained intubated following the procedure and was transferred to the intensive care unit. She is currently in assist-control mode at a rate of 20, tidal volume 400, FiO2 of 35% and a PEEP of 5. Initial blood gases on 50% FiO2 revealed a PaO2 of 127, pCO2 of 50 and a pH of 7.43. She is can currently sedated on propofol at 40 mcg/kg/min. She is also on Cleviprex at 1.5 mg/h. Pacemaker with backup pacing at 50. Chest x-ray reveals satisfactory endotracheal and nasogastric tubes in place. There is multifocal patchy airspace disease, right greater than left. Possible pulmonary edema. Small bilateral pleural effusions with adjacent atelectasis. Noted endovascular aortic valve replacement. White count 10.5. Hemoglobin 8.9. Platelets 271. Sodium 142. Potassium 3.6. Bicarb 35. BUN 11. Creatinine 0.66. Glucose 151. Reevaluated today on 02/06/2024, patient remains in the ICU, intubated and mechanically ventilated. Her sedation was placed on hold earlier this morning, patient is on assist-control rate of 20 tidal volume 400 FiO2 35% and PEEP of 5. ABG showed a pO2 of 99 pCO2 45 pH of 7.47. Patient is requiring Cleviprex for high blood pressure at 5 mg/h, her IV fluid is running at 0.9 normal saline. Chest x-ray showed very minimal pulmonary congestion superimposed on COPD patient was transitioned briefly to a pressure support of 10 and CPAP, and she was doing well and the plan was to extubate if tolerated at least 20 minutes of pressure support and CPAP. However within 10 minutes patient short of developed increased shortness of breath, could not ventilate the patient had to disconnect from mechanical ventilation and Ambu bag the patient until her O2 saturation came back up. Patient was extremely restless, almost like panicked out. Hence decided that she is not ready for weaning or extubation, and repeated her chest x-ray there is no evidence of pneumothorax and there was no change. My plan is to place back on mechanical ventilation with assist mode, sedated the patient with propofol, and I plan to readdress this tomorrow morning possibly transition the patient to Precedex prior to weaning. And will try to shoot for maintaining her pCO2 up in the 60s and pH in the 7.35 range. This is likely her baseline before we proceed with weaning. Patient did not tolerate any weaning trial today. Patient was reevaluated today on 02/07/2024, remains in the ICU, intubated and mechanically ventilated. Yesterday the patient had a weaning trial, however she failed and could not be extubated. I believe the patient seemed to be quite anxious agitated as she was weaning. And the extubation was delayed. Today I recommended that we go to Precedex while tapering down the propofol, and not to start weaning process until the patient is on Precedex. Indeed the patient went on Precedex, she was on 0.3 mcg/kg/h, and she is off propofol after Precedex was increased to the dose. Patient seems to be calm, she was placed for about an hour on pressure support of 8 and CPAP. ABG showed a pO2 of 83 pCO2 52 pH of 7.47, this was on 35%, hence I recommended we extubate the patient to BiPAP //35%. Is mostly at bedside during the whole time process. Chest x-ray showing mild interstitial changes/edema patient did receive Lasix and she is on Lasix 40 mg IV push twice daily. Patient was seen today on 02/08/2024, patient was extubated yesterday, tolerated the extubation well. Patient is POD #3 percutaneous aortic valve implantation using a 29 mm Evolut-FX, transesophageal echocardiography (performed by anesthesia), ultrasound-guided access and repair of right femoral artery access site by Perclose closure device, placement of temporary pacemaker wire, aortic root angiography, pre-TAVR balloon aortic valvuloplasty with a 23 mm true balloon, placement of sentinel cerebral embolic protection device. Today the patient remains in the ICU, she is on 4 L nasal cannula, does not seem to be in any distress, she is quite comfortable. Hemodynamically stable, her heart rate is 93, patient is on metoprolol and she is also on Lasix. Being followed by cardiothoracic surgery and by cardiology. Chest x-ray is showing some component of mild congestive heart failure, however the patient is doing well with diuretics. And receiving Lasix twice daily. WBC count today is 10.1 hemoglobin 28.7 basic metabolic profile is normal and renal profile is normal Patient evaluated again today on 02/09/2024, on 2 L nasal cannula, patient was extubated on 02/07/2024, tolerated the extubation well. Presently in no distress, remains on multiple cardiac meds remains on diuretics, remains on bronchodilators, and the patient is likely to be discharged home in the next 24 hours WBC count is 9 hemoglobin 8.3 electrolytes are normal renal profile is normal Objective - Vital Signs Vital signs: Vital Signs Temp 97.8 F 02/09/24 08:00 Pulse 85 02/09/24 08:27 Resp 18 02/09/24 08:42 BP 134/66 02/09/24 08:00 Pulse Ox 98 02/09/24 08:13 FiO2 35 02/07/24 11:07 Intake & Output 02/08/24 02/09/24 02/09/24 18:59 06:59 18:59 Intake Total 260 40 378 Output Total 285 400 Balance -25 -360 378 Weight 91 kg Intake: IV 20 40 20 Invasive Line 1 10 20 10 Invasive Line 4 10 20 10 Oral 240 358 Output: Urine 285 400 Uretheral (Kwan) 400 Other: Voiding Method Indwelling Catheter External Catheter External Catheter # Voids 1 1 # Bowel Movements 1 ABP, PAP, CO, CI - Last Documented Arterial Blood Pressure 128/33 - Exam GENERAL EXAM: Revealed 83-year-old female in no distress on 2 L nasal cannula HEAD: Normocephalic. EYES: Normal reaction of pupils, equal size. NOSE: Clear with pink turbinates. THROAT: No erythema or exudates. NECK: No masses, no JVD. CHEST: No chest wall deformity. LUNGS: Diminished breath sounds at the bases no crackles rhonchi or wheezes CVS: S1 and S2 normal with 2/6 systolic murmur throughout the precordium ABDOMEN: No hepatosplenomegaly, normal bowel sounds, no guarding or rigidity. SKIN: No rashes CENTRAL NERVOUS SYSTEM: Alert and oriented x 3, no gross focal deficit. EXTREMITIES: No clubbing edema or cyanosis - Labs CBC & Chem 7: 02/09/24 06:25 02/09/24 06:25 Labs: Abnormal Lab Results - Last 24 Hours (Table) 02/09/24 02/09/24 Range/Units 06:25 06:25 RBC 2.84 L (3.80-5.40) m/uL Hgb 8.3 L (11.4-16.0) gm/dL Hct 28.0 L (34.0-46.0) % MCHC 29.5 L (31.0-37.0) g/dL Sodium 135 L (137-145) mmol/L Chloride 95 L (98-107) mmol/L Carbon Dioxide 37 H (22-30) mmol/L Glucose 107 H (74-99) mg/dL Calcium 8.1 L (8.4-10.2) mg/dL Assessment and Plan Assessment: Impression: Severe aortic stenosis, status post transfemoral transcatheter aortic valve replacement. Postoperative day #4 Acute hypoxic respiratory failure secondary to severe COPD exacerbation, patient required general anesthesia during her TAVR procedure, patient was successfully extubated on 02/06 History of severe COPD/FEV1 of 26%. Ex-smoker Hypothyroidism Dyslipidemia Obstructive sleep apnea syndrome benign essential hypertension History of congestive heart failure History of gastric ulcer Recommendation: Ambulate patient today. Continue bronchodilators Continue incentive spirometry Continue GI DVT prophylaxis Continue diuretics Possible discharge in the next 24 hours, patient to follow-up with me regarding her COPD in 2 weeks postdischarge Time with Patient: Less than 30
[2024-02-09] MEDS: MAGNESIUM SULFATE-D5W PMX 1 GM in DEXTROSE/WATER 1 100ML.BAG IVPB ONE (15:58)
[2024-02-10 07:51] LABS: HCT 27.1 % (34.0-46.0); Hypochromasia Marked; MCH 28.8 pg (25.0-35.0); MCHC 29.4 g/dL (31.0-37.0); Mean Platelet Volume 8.1; Platelet Count 265 k/uL (150-450); RBC 2.77 m/uL (3.80-5.40); RDW 13.9 % (11.5-15.5); WBC 8.2 k/uL (3.8-10.6)
[2024-02-10 08:11] LABS: African American GFR (CKD) 46 (>60 ml/min/1.73 sqM); Anion Gap 2 mmol/L; Blood Urea Nitrogen 21 mg/dL (7-17); Calcium 8.6 mg/dL (8.4-10.2); Carbon Dioxide 38 mmol/L (22-30); Chloride 97 mmol/L (98-107); Glucose 102 mg/dL (74-99); Non-African American GFR(CKD) 40 (>60 ml/min/1.73 sqM); Potassium 4.2 mmol/L (3.5-5.1); Sodium 137 mmol/L (137-145)
[2024-02-10 08:31] VITALS: RESP 16
--- NOTE | 2024-02-10 08:52 | XR ---
EXAMINATION TYPE: XR chest 2V DATE OF EXAM: 02/10/2024 Comparison: 02/09/2024 Clinical History: 83-year-old female post TAVR, Right hemothorax Findings: Heart remains mildly enlarged. Mild diffuse prominence to the pulmonary vasculature is similar. Small bilateral pleural effusions with some patchy bibasilar opacities similar to slightly improved. No ap preciable pneumothorax. Endovascular aortic valve replacement noted. Impression: Residual mild pulmonary vascular congestion. Small bilateral pleural effusions with adjacent atelecta sis and/or consolidation similar to slightly improved. No appreciable pneumothorax.
--- NOTE | 2024-02-10 11:29 | P.PN ---
Subjective Progress Note Date: 02/10/24 Principal diagnosis: Aortic valve stenosis. 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 She had been having significant and progressive dyspnea on exertion. She was seen and evaluated in the valve clinic and was found to have severe aortic valve stenosis. She was brought in today electively for a TAVR procedure. She did receive a 29 mm Medtronic evolute flex prosthesis via right transfemoral approach. During the initiation of the procedure the patient was moving around quite a bit and could not tolerate enough IV sedation and she was subsequently intubated during the procedure. She remained intubated following the procedure and was transferred to the intensive care unit. She is currently in assist-control mode at a rate of 20, tidal volume 400, FiO2 of 35% and a PEEP of 5. Initial blood gases on 50% FiO2 revealed a PaO2 of 127, pCO2 of 50 and a pH of 7.43. She is can currently sedated on propofol at 40 mcg/kg/min. She is also on Cleviprex at 1.5 mg/h. Pa cemaker with backup pacing at 50. Chest x-ray reveals satisfactory endotracheal and nasogastric tubes in place. There is multifocal patchy airspace disease, right greater than left. Possible pulmonary edema. Small bilateral pleural effusions with adjacent atelectasis. Noted endovascular aortic valve replacement. White count 10.5. Hemoglobin 8.9. Platelets 271. Sodium 142. Potassium 3.6. Bicarb 35. BUN 11. Creatinine 0.66. Glucose 151. Reevaluated today on 02/06/2024, patient remains in the ICU, intubated and mechanically ventilated. Her sedation was placed on hold earlier this morning, patient is on assist-control rate of 20 tidal volume 400 FiO2 35% and PEEP of 5. ABG showed a pO2 of 99 pCO2 45 pH of 7.47. Patient is requiring Cleviprex for high blood pressure at 5 mg/h, her IV fluid is running at 0.9 normal saline. Chest x-ray showed very minimal pulmonary congestion superimposed on COPD patient was transitioned briefly to a pressure support of 10 and CPAP, and she was doing well and the plan was to extubate if tolerated at least 20 minutes of pressure support and CPAP. However within 10 minutes patient short of developed increased shortness of breath, could not ventilate the patient had to disconnect from mechanical ventilation and Ambu bag the patient until her O2 saturation came back up. Patient was extremely restless, almost like panicked out. Hence decided that she is not ready for weaning or extubation, and repeated her chest x-ray there is no evidence of pneumothorax and there was no change. My plan is to place back on mechanical ventilation with assist mode, sedated the patient with propofol, and I plan to readdress this tomorrow morning possibly transition the patient to Precedex prior to weaning. And will try to shoot for maintaining her pCO2 up in the 60s and pH in the 7.35 range. This is likely her baseline before we proceed with weaning. Patient did not tolerate any weaning trial today. Patient was reevaluated today on 02/07/2024, remains in the ICU, intubated and mechanically ventilated. Yesterday the patient had a weaning trial, however she failed and could not be extubated. I believe the patient seemed to be quite a nxious agitated as she was weaning. And the extubation was delayed. Today I recommended that we go to Precedex while tapering down the propofol, and not to start weaning process until the patient is on Precedex. Indeed the patient went on Precedex, she was on 0.3 mcg/kg/h, and she is off propofol after Precedex was increased to the dose. Patient seems to be calm, she was placed for about an ho ur on pressure support of 8 and CPAP. ABG showed a pO2 of 83 pCO2 52 pH of 7.47, this was on 35%, hence I recommended we extubate the patient to BiPAP 07/03/35%. Is mostly at bedside during the whole time process. Chest x-ray showing mild interstitial changes/edema patient did receive Lasix and she is on Lasix 40 mg IV push twice daily. Patient was seen today on 02/08/2024, patient was extubated yesterday, tolerated the extubation well. Patient is POD #3 percutaneous aortic valve implantation using a 29 mm Evolut-FX, transesophageal echocardiography (performed by anesthesia), ultrasound-guided access and repair of right femoral artery access site by Perclose closure device, placement of temporary pacemaker wire, aortic root angiography, pre-TAVR balloon aortic valvuloplasty with a 23 mm true balloon, placement of sentinel cerebral embolic protection device. Today the patient remains in the ICU, she is on 4 L nasal cannula, does not seem to be in any distress, she is quite comfortable. Hemodynamically stable, her heart rate is 93, patient is on metoprolol and she is also on Lasix. Being followed by cardiothoracic surgery and by cardiology. Chest x-ray is showing some component of mild congestive heart failure, however the patient is doing well with diuretics. And receiving Lasix twice daily. WBC count today is 10.1 hemoglobin 28.7 basic metabolic profile is normal and renal profile is normal Patient evaluated again today on 02/09/2024, on 2 L nasal cannula, patient was extubated on 02/07/2024, tolerated the extubation well. Presently in no distress, remains on multiple cardiac meds remains on diuretics, remains on bronchodilators, and the patient is likely to be discharged home in the next 24 hours WBC count is 9 hemoglobin 8.3 electrolytes are normal renal profile is normal Progress note dated February 10, 2024. 83-year-old female seen today in room 351. The patient is postoperative day #5, status post transcatheter aortic valve replacement for aortic stenosis. The patient is on 2 L of oxygen. The patient's not receiving any IV fluids. Current laboratory data includes a white count 8.2, hemoglobin 8, hematocrit 27.1, and a normal platelet count. Sodium 137, potassium 4.2, chloride 97, CO2 38, BUN 21, creatinine 1.23. Glucose is 102. Calcium 8.6, magnesium 2. Chest x-ray shows some very mild pulmonary vascular congestion. She has small bilater al pleural effusions. Objective - Vital Signs Vital signs: Vital Signs Temp 97.6 F 02/10/24 11:20 Pulse 64 02/10/24 11:20 Resp 16 02/10/24 11:20 BP 100/64 02/10/24 11:20 Pulse Ox 96 02/10/24 11:20 FiO2 35 02/07/24 11:07 Intake & Output 02/09/24 02/10/24 02/10/24 18:59 06:59 18:59 Intake Total 634 20 110 Output Total 900 Balance 634 -880 110 Weight 90 kg Intake: IV 40 20 Invasive Line 1 20 Invasive Line 4 20 20 Oral 594 110 Output: Urine 900 Other: Voiding Method External Catheter Toilet Toilet # Voids 2 1 1 # Bowel Movements 1 ABP, PAP, CO, CI - Last Documented Arterial Blood Pressure 128/33 - Exam No acute distress, oriented 3. Patient is currently on 2 L of oxygen. HEENT examination is grossly unremarkable. Mucous membranes are moist. No oral lesions. Neck supple. Full range of motion. No adenopathy thyromegaly or neck vein distention. Cardiovascular examination reveals regular rhythm rate. S1-S2 normal. No S3 or S4. No discernible murmur noted. Heart rate 64 bpm. Lungs reveal scattered bilateral rhonchi. No wheezes. No crackles. Breath sounds equal bilaterally. Saturations are 96%. Abdomen soft bowel sounds are heard. No masses or tenderness. Extremities are intact. No cyanosis clubbing or edema. Skin is without rash or lesion. Neurologic examination is brief but nonfocal. - Labs CBC & Chem 7: 02/10/24 06:17 02/10/24 06:17 Labs: Abnormal Lab Results - Last 24 Hours (Table) 02/10/24 02/10/24 Range/Units 06:17 06:17 RBC 2.77 L (3.80-5.40) m/uL Hgb 8.0 L (11.4-16.0) gm/dL Hct 27.1 L (34.0-46.0) % MCHC 29.4 L (31.0-37.0) g/dL Chloride 97 L (98-107) mmol/L Carbon Dioxide 38 H (22-30) mmol/L BUN 21 H (7-17) mg/dL Creatinine 1.23 H (0.52-1.04) mg/dL Glucose 102 H (74-99) mg/dL Assessment and Plan Assessment: Severe aortic stenosis, post-operative day #5, status post transcatheter aortic valve replacement. Acute hypoxemic respiratory failure secondary to severe COPD. History of severe COPD, with an FEV1 that is 26% of predicted. Prior history of heavy tobacco use. History of hypothyroidism. History of dyslipidemia. History of obstructive sleep apnea syndrome. Benign essential hypertension. History of congestive heart failure. History of gastric ulcer. Plan: Plan dated February 10, 2024. The patient appears to be doing a lot better. The patient's 2 L saturation is 96%. The patient is postoperative day #5. The patient's not receiving any IV fluids. Labs, x-rays, and medications are all reviewed. The patient's prognosis remains guarded. She will follow-up with my partner after discharge. The patient does have severe COPD with an FEV1 that is 26% of predicted. Time with Patient: Less than 30
[2024-02-10 13:24] VITALS: BMI 33.0
--- NOTE | 2024-02-10 14:10 | P.PN ---
Subjective Progress Note Date: 02/10/24 Principal diagnosis: Severe symptomatic aortic valve stenosis. Past medical history significant for hypertension, hyperlipidemia, chronic diastolic heart failure with preserved ej ection fraction, bilateral internal carotid artery stenosis 50 to 69%, severe COPD on chronic home oxygen at 4 L nasal cannula, obstructive sleep apnea with home CPAP use, hypothyroid, previous stomach ulcer with GI bleed, obesity, previous tobacco dependence POD #5 percutaneous aortic valve implantation using a 29 mm Evolut-FX, transesophageal echocardiography (performed by anesthesia), ultrasound-guided access and repair of right femoral artery access site by Perclose closure device, placement of temporary pacemaker wire, aortic root angiography, pre-TAVR balloon aortic valvuloplasty with a 23 mm true balloon, placement of sentinel cerebral embolic protection device Acute hypoxic respiratory failure requiring prolonged mechanical ventilation, she was extubated on February 07, 2024, and is currently on 2 L nasal cannula with oxygen saturations 96% Patient was seen and examined in follow-up today February 10, 2024 at her bedside on the third floor cardiac stepdown unit. She is currently sitting up to the bedside chair, is awake, alert, oriented x 3 and is in no acute apparent distress. She is tolerating her breakfast. She denies any complaints of shortness of breath or pain while sitting in the chair. She does report although once ambulating to the bathroom she was a little short winded. Oxygen saturations are 96% on 2 L nasal cannula and she is achieving 500 mL on her incentive spirometry with much encouragement. Remote telemetry is showing normal sinus rhythm with occasional PACs heart rate 73 bpm. Chest x-ray and laboratory results were reviewed. Objective - Vital Signs Vital signs: Vital Signs Temp 98.4 F 02/10/24 04:00 Pulse 73 02/10/24 04:00 Resp 19 02/10/24 04:00 BP 121/66 02/10/24 04:00 Pulse Ox 96 02/10/24 04:00 FiO2 35 02/07/24 11:07 Intake & Output 02/09/24 02/10/24 02/10/24 18:59 06:59 18:59 Intake Total 634 20 Output Total 900 Balance 634 -880 Weight 90 kg Intake: IV 40 20 Invasive Line 1 20 Invasive Line 4 20 20 Oral 594 Output: Urine 900 Other: Voiding Method External Catheter Toilet # Voids 2 1 # Bowel Movements 1 ABP, PAP, CO, CI - Last Documented Arterial Blood Pressure 128/33 - Exam CONSTITUTIONAL: Sitting up to the bedside chair on the cardiac stepdown unit, appears comfortable, cooperative, no apparent acute distress. HEENT: Neck is supple, no JVD, no lymphadenopathy. RESPIRATORY: Lungs sounds essentially clear throughout, diminished to his bilateral bases. Respirations are symmetrical and nonlabored. Currently on 2 L nasal cannula with oxygen saturations 96%. Achieving 500 mL on her incentive spirometry. Strong cough. CARDIOVASCULAR: Regular rhythm and rate. S1 and S2 present, negative for S3, gallop or murmur. Bedside telemetry showing normal sinus rhythm with bundle branch block, occasional PACs heart rate 73 bpm. +1 edema to her bilateral lower extremities. No calf pain or tenderness noted. Knee-high sequential compression devices in place to her bilateral lower extremities. GASTROINTESTINAL: Abdomen soft, nontender, nondistended. Active bowel sounds present 4 quadrants. Tolerating diet. Passing flatus. No guarding or rigidity. GENITOURINARY: 900 mL in the last 8 hours. INTEGUMENTARY: Skin is warm and dry with no evidence of clubbing or cyanosis. Bilateral groin puncture sites clean, dry, soft and nontender. NEUROLOGIC: Cranial nerves II through XII intact. No focal deficits. MUSKULOSKELETAL: Able to move all extremities, strength equal bilaterally, generalized weakness. PSYCHIATRIC: Alert and oriented to person place and time, appropriate affect, intact judgment and insight. - Allied health notes Allied health notes reviewed: nursing - Labs CBC & Chem 7: 02/10/24 06:17 02/10/24 06:17 Labs: Abnormal Lab Results - Last 24 Hours (Table) 02/09/24 02/09/24 Range/Units 06:25 06:25 RBC 2.84 L (3.80-5.40) m/uL Hgb 8.3 L (11.4-16.0) gm/dL Hct 28.0 L (34.0-46.0) % MCHC 29.5 L (31.0-37.0) g/dL Sodium 135 L (137-145) mmol/L Chloride 95 L (98-107) mmol/L Carbon Dioxide 37 H (22-30) mmol/L Glucose 107 H (74-99) mg/dL Calcium 8.1 L (8.4-10.2) mg/dL - Imaging and Cardiology Chest x-ray: report reviewed, image reviewed Assessment and Plan Assessment: Severe symptomatic aortic valve stenosis, NYHA class II sometimes class III, status post TAVR History of hypertension Hyperlipidemia Chronic diastolic heart failure with preserved ejection fraction, EF 55% Bilateral internal carotid artery stenosis 50 to 69% Severe COPD on chronic home oxygen at 4 L nasal cannula, FEV1 29% of predicted Previous tobacco dependence Obstructive sleep apnea with home CPAP use Hypothyroid Previous stomach ulcer with GI bleed Obesity with a BMI of 35.7 kg/m Acute hypoxic respiratory failure requiring prolonged mechanical ventilation, successfully extubated currently on 2 L nasal cannula Plan: Wean oxygen as tolerated. Bronchodilators management per pulmonology/critical care medicine recommendations. Encourage use of incentive spirometry 10 times every hour while awake. Continue to maximize medical therapy with aspirin, statin and beta-bridgette. Will increase beta-bridgette as tolerated. Continue Lasix IV twice daily, continue to monitor strict output. Will continue to monitor daily labs and chest x-rays, electrolyte replacement per protocol. Increase activity as tolerated. Out of bed for all meals. Physical and Occupational Therapy have been consulted. GI/DVT prophylaxis. Continue to record strict accurate intake and output. Daily weights. Discharge planning is in place, anticipate discharge home today with home health care. More recommendations to follow based on patient's clinical course. Time with Patient: Greater than 30
[2024-02-10 15:38] VITALS: BP 122/53; PULSE 70; TEMP 98
--- NOTE | 2024-02-10 17:15 | P.DS ---
Providers Date of admission: 02/05/24 07:25 Expected date of discharge: 02/10/24 Attending physician: Barron De La Fuente DO Consults: 01/31/24 13:18 Consult to Anesthesia Routine Consulting Provider: Anesthesia,Services Consult Reason/Comments: Cardiac Surgery Pre-Op 02/05/24 11:10 Consult Physician Routine Consulting Provider: [place] Christopher Consult Reason/Comments: post TAVR Do you want consulting provider notified?: Already Contacted 02/05/24 12:23 Consult Physician Routine Consulting Provider: Gregoria Palmer Consult Reason/Comments: ICU management Do you want consulting provider notified?: Yes 02/05/24 12:57 Consult Physician Routine Consulting Provider: Gregoria Palmer Consult Reason/Comments: Call Center Associate Consult: post cardiac surgery Do you want consulting provider notified?: Yes Primary care physician: Yanely Andrade [facility] Course: MEDICAL HISTORY: Severe symptomatic aortic valve stenosis, NYHA class II sometimes class III, status post TAVR History of hypertension Hyperlipidemia Chronic diastolic heart failure with preserved ejection fraction, EF 55% Bilateral internal carotid artery stenosis 50 to 69% Severe COPD on chronic home oxygen at 4 L nasal cannula, FEV1 29% of predicted Previous tobacco dependence Obstructive sleep apnea with home CPAP use Hypothyroid Previous stomach ulcer with GI bleed Obesity with a BMI of 35.7 kg/m Acute hypoxic respiratory failure requiring prolonged mechanical ventilation, successfully extubated currently on 2 L nasal cannula PROCEDURE: 1. Percutaneous aortic valve implantation using a 29 mm Evolute FX under CHON and fluoroscopy guidance 2. Transesophageal echocardiography performed by anesthesia 3. Ultrasound-guided access and repair of right femoral artery access site by Perclose closure device 4. Placement of temporary pacemaker wire 5. Aortic root angiography 6. Pre-TAVR balloon aortic valvuloplasty with a 23 mm true balloon 7. Placement of sentinel cerebral embolic protection device HISTORY OF PRESENT ILLNESS: This is a 83-year-old female who follows on an outpatient basis with Yanely Andrade PA-C for primary care and Dr. De La Fuente for cardiology. She has a known history of severe aortic stenosis and has been symptomatic with increased exertional dyspnea as well as extreme fatigue and tiredness. She had been referred to structural heart clinic for evaluation for transcatheter aortic valve replacement after heart catheterization and transesophageal echocardiogram were completed. Echocardiography demonstrated normal systolic function with EF 55%-60%, aortic valve area 0.5 cm with a peak/mean gradient 98/61 mmHg and a peak velocity of 4.96 m/s. Heart catheterization showed showed a 30% stenosis to her proximal left anterior descending coronary artery, 30 to 40% stenosis to her mid left anterior descending coronary artery and a 30% stenosis to her proximal circumflex coronary artery. After workup was completed STS risk score was calculated along with incremental risk and the patient was felt to be very high risk for surgical aortic valve replacement, therefore transcatheter aortic valve replacement was recommended. The usual course of TAVR was discussed in detail the patient, risks and benefits were reviewed, shared decision making between cardiology, surgery, and the patient/family took place, and the patient consented to proceed with the procedure. HOSPITAL COURSE: The patient was brought to the hospital on 02/05/24, was taken to the extended stay area, prepared in the usual fashion, and subsequently taken to the cardiac catheterization laboratory where Dr. De La Fuente and Dr. Christopher completed TAVR procedure under general anesthesia with fluoroscopy and CHON. The valve was deployed under rapid ventricular pacing and proceeded without event. At the end of the procedure there was no significant gradient, hemodynamics were felt to be acceptable, and there was minimal perivalvular leak. Upon completion of the procedure the patient remained intubated due to her preoperative pulmonary function status and was transferred to the cardiovascular intensive care unit where she was recovered, and monitored hemodynamically. She was subsequently extubated, her oxygen was titrated down to 2 L nasal cannula, as she wears oxygen chronically at home, she was tolerating oral diet, her pain was controlled, follow-up TTE demonstrated normal left ventricular systolic function, a normally functioning bioprosthetic aortic valve without stenosis, with a peak velocity of 2.30 m/s, peak/mean gradient 21/11 mmHg, no paravalvular aortic regurgitation, and she was ready to be discharged to home on postoperative day #5. She received written and verbal instruction regarding her medications, activity restrictions, signs and symptoms requiring physician notification, and follow-up appointments. Plan - Discharge Summary Discharge Rx Participant: No New Discharge Prescriptions: New Furosemide [Lasix] 40 mg PO BID #14 tablet Budesonide-Formot 160-4.5 Mcg [Symbicort 160-4.5 Mcg Inhaler] 2 puff INHALATION BID #1 each Metoprolol Tartrate [Lopressor] 25 mg PO BID #60 tab Albuterol Inhaler [Ventolin Hfa Inhaler] 1 - 2 puff INHALATION Q6H PRN #1 each PRN Reason: Shortness Of Breath Continue cloNIDine HCL [Catapres] 0.1 mg PO BID Vit C/E/Zn/Coppr/Lutein/Zeaxan [Preservision Areds 2 Softgel] 1 cap PO BID Ipratropium-Albuterol Nebulize [Duoneb 0.5 mg-3 mg/3 ml Soln] 3 ml INHALATION RT-QID PRN each PRN Reason: Shortness Of Breath Or Wheezing Acetaminophen Tab [Tylenol] 650 mg PO Q6HR PRN tab PRN Reason: Fever And/ Or Pain Potassium Chloride [Potassium Chloride ER] 10 meq PO DAILY lisinopriL 40 mg PO QAM Levothyroxine Sodium [Synthroid] 150 mcg PO QAM Rosuvastatin [Crestor] 10 mg PO HS amLODIPine [Norvasc] 5 mg PO QAM Aspirin 81 mg PO DAILY Discontinued Furosemide [Lasix] 40 mg PO DAILY Discharge Medication List Levothyroxine Sodium [Synthroid] 150 mcg PO QAM 06/18/21 [History] Potassium Chloride [Potassium Chloride ER] 10 meq PO DAILY 06/18/21 [History] cloNIDine HCL [Catapres] 0.1 mg PO BID 06/18/21 [History] lisinopriL 40 mg PO QAM 06/18/21 [History] Rosuvastatin [Crestor] 10 mg PO HS 12/15/23 [History] Vit C/E/Zn/Coppr/Lutein/Zeaxan [Preservision Areds 2 Softgel] 1 cap PO BID 12/15/23 [History] amLODIPine [Norvasc] 5 mg PO QAM 12/15/23 [History] Acetaminophen Tab [Tylenol] 650 mg PO Q6HR PRN tab 12/20/23 [Rx] Ipratropium-Albuterol Nebulize [Duoneb 0.5 mg-3 mg/3 ml Soln] 3 ml INHALATION RT-QID PRN each 12/20/23 [Rx] Aspirin 81 mg PO DAILY 01/31/24 [History] Albuterol Inhaler [Ventolin Hfa Inhaler] 1 - 2 puff INHALATION Q6H PRN #1 each 02/10/24 [Rx] Budesonide-Formot 160-4.5 Mcg [Symbicort 160-4.5 Mcg Inhaler] 2 puff INHALATION BID #1 each 02/10/24 [Rx] Furosemide [Lasix] 40 mg PO BID #14 tablet 02/10/24 [Rx] Metoprolol Tartrate [Lopressor] 25 mg PO BID #60 tab 02/10/24 [Rx] Follow up Appointment(s)/Referral(s): Gregoria Palmer MD [STAFF PHYSICIAN] - 03/09/24 1:15 pm Yanely Andrade PAC [Primary Care Provider] - As Needed Clinic,Structural Heart [NON-STAFF] - 1 Week (You have a 30-day post TAVR appointment at the health clinic on 04/14/24 @ 12 pm, and a 1 year post TAVR appointment at the valve clinic 02/01/25 @ 10 am) Barron De La Fuente DO [STAFF PHYSICIAN] - 02/13/24 9:00 am (Your appointment February 12 this for a groin check at 9 am. You also have a 30-day post TAVR echo and appointment at the cardiology office on 04/14/24 @10:30 am, and a 1 year post TAVR echo and appointment at the cardiology office 02/01/25 @ 8:30 am) Ambulatory/Diagnostic Orders: Basic Metabolic Panel [LAB.AMB] Time Frame: 04/14/24, Facility: [facility], Location: [facility] Basic Metabolic Panel [LAB.AMB] Facility: [facility], Location: [facility] Complete Blood Count w/diff [LAB.AMB] Time Frame: 02/12/24, Facility: [facility], Location: [facility] Complete Blood Count w/diff [LAB.AMB] Facility: [facility], Location: [facility] Activity/Diet/Wound Care/Special Instructions: DISCHARGE INSTRUCTIONS: 1. No driving for 1 week, or until physician gives their ok. 2. No lifting, pushing, or pulling more than 5-10 pounds for 1 week. 3. Hold both groins when you cough or sneeze for the next 2 weeks. Bruising is common, but report increased swelling, pain or fever >101F 4. Shower daily. No pool, hot tub, or bathtub for 1 week 5. No powders, lotions, ointments on incisions. 6. No straining, including for bowel movements. Use stool softner if necessary 7. Stairs are not an issue. Go slowly, using handrail and take 1 step at a time. Ambulate several times daily 8. Continue pain control per as needed orders. 9. Take only the medications listed on your discharge form 10. Eat low salt (limited to 2 grams or 2000 milligrams) daily, avoid adding salt, avoid canned/processed foods 11. Take your weight daily in the morning and record, bring with you to your follow up appointments 12. Keep all follow up appointments. You will need a valve clinic appointment at 30 days and 1 year post procedure for follow up 13. You have been referred to and are expected to begin Cardiac Rehab in approximately 4 weeks. 14. You will need antibiotics prior to any dental work, including cleanings, and any surgeries to prevent Endocarditis (bacterial infection in your heart) For any questions or concerns please call your valve coordinators: Tash or Fuentes @ Discharge Disposition: HOME SELF-CARE
--- NOTE | 2024-02-11 14:05 | CDI ---
Documentation Clarification Form Date: 02/11/2024 01:57:06 PM From: Cary Mares Phone: Admit Date: 02/05/2024 07:25:00 AM Patient Name: Alma Torres Visit Number: [id number] Discharge Date: 02/10/2024 05:00:00 PM ATTENTION: The Clinical Documentation Specialists (CDI) and [facility] Coding Staff appreciate your assistance in clarifying documentation. Please respond to the clarification below the line at the bottom and electronically sign. The CDI & [facility] Coding staff will review the response and follow-up if needed. Please note: Queries are made part of the Legal Health Record. If you have any questions, please contact the author of this message via ITS. Pawel ALVA Your patient has acute hypoxemic respiratory failure secondary to severe oxygen dependentchronic obstructive pulmonary disease. Based on this information and the findings below, is there an additional diagnosis that is clinically appropriate for this patient? History/Risk Factors: 83yo F, /AR, sp TAVR, HTN, HLD, CDHF, BICA, AECOPD on O2, DANIELA, hypothyroid, Hx GIB d/t ulcer, obesity Tobacco use: former Home oxygen: yes Clinical Indicators: Acute hypoxic respiratory failurerequiringprolongedmechanical ventilation post OP Treatment: Acute hypoxic respiratory failurerequiringprolongedmechanical ventilation, successfullyextubated to BiPap, and nowcurrently on 2 L nasal cannula Is there an additional diagnosis that is clinically appropriate for this patient? [ ] Acute on Chronic Respiratory Failure [ X ] No additional diagnosis/not clinically significant , Patient takes lasix chronically at home, she is also on 4 L/min nasal cannula [ ] Other Diagnosis, please specify [ ] Unable to determine (Template Last Revised: July 2023) MTDD
== END 2024-02-10 17:00 | disposition home or self-care (01) | DRG 266 ==
LOC: 2ORMAIN 07:25 → 2SICU 11:23 → 3SCARD 02-08 12:59
PROVIDERS: ADMIT Internal Medicine; ATTEND Internal Medicine
PROC: B3101ZZ Fluoroscopy of Thoracic Aorta using Low Osmolar Contrast (ICD-10-PCS; 2024-02-05)
PROC: X2A5312 Cerebral Embolic Filtration, Dual Filter in Innominate Artery and Left Common Carotid Artery, Percutaneous Approach, New Technology Group 2 (ICD-10-PCS; 2024-02-05)
PROC: B24BZZ4 Ultrasonography of Heart with Aorta, Transesophageal (ICD-10-PCS; principal; 2024-02-05 10:15)
PROC: 02RF38Z Replacement of Aortic Valve with Zooplastic Tissue, Percutaneous Approach (ICD-10-PCS; principal; 2024-02-05 10:15)
PROC: 5A1223Z Performance of Cardiac Pacing, Continuous (ICD-10-PCS; 2024-02-05 10:15)
PROC: 5A09357 Assistance with Respiratory Ventilation, Less than 24 Consecutive Hours, Continuous Positive Airway Pressure (ICD-10-PCS; 2024-02-07)
DX: I35.2 Nonrheumatic aortic (valve) stenosis with insufficiency (principal); Z00.6 Encounter for examination for normal comparison and control in clinical research program; J96.01 Acute respiratory failure with hypoxia; J44.1 Chronic obstructive pulmonary disease with (acute) exacerbation; I50.32 Chronic diastolic (congestive) heart failure; I11.0 Hypertensive heart disease with heart failure; E66.01 Morbid (severe) obesity due to excess calories; E11.9 Type 2 diabetes mellitus without complications; E03.9 Hypothyroidism, unspecified; I65.29 Occlusion and stenosis of unspecified carotid artery; I65.23 Occlusion and stenosis of bilateral carotid arteries; E78.5 Hyperlipidemia, unspecified; J98.4 Other disorders of lung; R45.1 Restlessness and agitation; G47.33 Obstructive sleep apnea (adult) (pediatric); Z87.891 Personal history of nicotine dependence; Z99.81 Dependence on supplemental oxygen; Z79.890 Hormone replacement therapy; Z79.899 Other long term (current) drug therapy; Z87.11 Personal history of peptic ulcer disease; Z79.82 Long term (current) use of aspirin; Z88.2 Allergy status to sulfonamides; Z68.35 Body mass index [BMI] 35.0-35.9, adult
CPT/HCPCS: 33210; 33361; 71045; 71046; 80048; 80053; 81001; 82330; 82805; 83735; 84132; 85025; 85027; 93306; 93312; 93320; 93325; 94003; 94640; 94660; 94760

== ENCOUNTER → 2024-04-14 | Outpatient (CLI) | payer MEDICARE ==
[2024-04-14 19:05] LABS: Basophils # (A) 0.04 X 10*3/uL (0.00-0.10); Basophils % (A) 0.5 %; Eosinophils # (A) 0.19 X 10*3/uL (0.04-0.35); Eosinophils % (A) 2.2 %; HCT 37.6 % (37.2-46.3); HGB 11.1 g/dL (12.0-15.0); Lymphocytes # (A) 1.67 X 10*3/uL (0.90-5.00); Lymphocytes % (A) 19.2 %; MCH 26.9 pg (27.0-32.0); MCHC 29.5 g/dL (32.0-37.0); MCV 91.3 FL (80.0-97.0); Mean Platelet Volume 11.8 FL (9.5-12.2); Monocytes # (A) 0.61 X 10*3/uL (0.20-1.00); NRBC Per 100 WBC 0 X 10*3/uL (0.00-0.01); Neutrophils # (A) 6.15 X 10*3/uL (1.80-7.70); Neutrophils % (A) 70.8 %; Platelet Count 204 X 10*3/uL (140-440); RBC 4.12 X 10*6/uL (4.10-5.20); RDW 15.2 % (11.5-14.5); WBC 8.69 X 10*3/uL (4.50-10.00)
[2024-04-14 19:10] LABS: Glucose 102 mg/dL (70-110)
[2024-04-14 19:11] LABS: Calcium 9.6 mg/dL (8.7-10.3); Carbon Dioxide 25.8 mmol/L (21.6-31.8); Chloride 103 mmol/L (96-109); Potassium 4.4 mmol/L (3.5-5.5); Sodium 142 mmol/L (135-145)
== END | disposition home or self-care (01) ==
LOC: LABWHC1 13:15
PROVIDERS: ATTEND Thoracic Surgery (Cardiothoracic Vascular Surgery)
DX: I35.1 Nonrheumatic aortic (valve) insufficiency (principal)
CPT/HCPCS: 36415; 80048; 85025